=== PATIENT | female | born 1975 | race Caucasian/White ===

== ENCOUNTER → 2016-06-19 | Outpatient (CLI) | payer BC ==
[~2016-06-19] MED LIST: ACET-1256 PO; DOXYCYCLINE PEG; GLUCTAB7 PO; HYDR-5688 PO; HYDR4TAB78 PO; METF-384 PO; METRONIDAZOLE TOP; SENNTAB23 PO; TRAM-10 PO
[2016-06-19 16:55] LABS: BLOOD UREA NITROGEN 9 mg/dl (7-18); CREATININE 0.76 mg/dl (0.60-1.20)
== END | disposition home or self-care (01) ==
LOC: C.LABBC 14:22
PROVIDERS: ATTEND Orthopaedic Surgery Orthopaedic Surgery of the Spine
DX: M47.812 Spondylosis without myelopathy or radiculopathy, cervical region (principal); M54.12 Radiculopathy, cervical region

== ENCOUNTER → 2016-06-24 | Day surgery (SDC) | payer BC ==
[~2016-06-24] VITALS: Ht 167.6 cm; Wt 118.0 kg
[2016-06-24] VITALS (11 sets, daily range): BP systolic 100–134; BP diastolic 54–80; PULSE 56–69; TEMP 36.6–37; O2SAT 96–100; Ht 167.6 cm; Wt 118.0 kg
[~2016-06-24] MED LIST changes: +ACETAMINOPHEN 500 MG TAB PO PRN
--- NOTE | 2016-06-24 09:44 | DIAGNOSTIC IMAGING REPORT ---
FLUOROSCOPICALLY GUIDED CERVICAL MYELOGRAM CLINICAL HISTORY: prior neck surgery. Neck pain. FLUOROSCOPY TIME: 0.8 minutes. A single image submitted. PROCEDURE: The procedure, risks and benefits were discussed with the patient including the risk of spinal headache, bleeding and infection. The patient agreed to the procedure and informed written consent was obtained. The procedure was performed by Dr. Berkowitz following a timeout. The right L3-L4 interlaminar space was targeted. Skin overlying the space was prepped and draped in the usual sterile fashion and local anesthesia was achieved with 1% lidocaine. Under intermittent fluoroscopic guidance, a 20-gauge x 4.75 in. Sprotte needle was inserted into the thecal sac. A total of 8cc of Isovue-M 300 was injected. The patient tolerated the procedure well. There were no immediate complications. The patient was transported to the CT suite for further imaging. IMPRESSION: Successful fluoroscopic guided cervical myelogram. Electronically signed by: Sukmuar Berkowitz M.D. 06/24/2016 9:43 AM Dictated Date/Time: 06/24/2016 9:40 AM
--- NOTE | 2016-06-24 09:45 | Discharge Instructions ---
Discharge Instructions Procedure Procedure Date: Jun 24, 2016. Reason for visit: Cervical Radiculopathy/Spondylosis *Latex Allergy*. Discharge Discharge Date: Jun 24, 2016. Discharge Diagnosis: same Instructions Activity Recommendations: No limitations Return to School/Work: no limitations Recommended Home Diet: Resume Previous Diet Provider Instructions: ACTIVITY RECOMMENDATIONS: * Rest today. * Resume regular activity in one day. MEDICATIONS: * May take Tylenol or Ibuprofen as needed for pain. DIET: * Resume previous diet. SPECIAL CARE INSTRUCTIONS: Call your doctor if: * Temperature above 101 degrees F. * Pain not relieved by pain medicine ordered. * Increased drainage or redness from incision. * Notify your doctor with any questions or concerns. Call your doctor or go to the nearest Emergency Department if you experience: * Increased chest pain or shortness of breath. FOLLOW UP VISIT: Follow-up with Referring Physician as scheduled. Allergies Coded Allergies: Latex1 -Allergic Contact Dermititis (Verified Allergy, Mild, rash, 06/24/16) NO KNOWN DRUG ALLERGIES (Verified Allergy, Mild, ., 06/24/16) Killian Yuen Recommendations: Call your doctor if: * Temperature above 101 degrees * Pain not relieved by pain medicine ordered * There is increased drainage or redness from any incision * You have any unanswered questions or concerns. Your Doctors Instructions noted above were prepared by provider Sukumar Berkowitz. Patient Signature Section: Patient Instructions Signature Page Tsering Us Patient (or Guardian) Signature/Date: I have read and understand the instructions given to me by my caregivers. Caregiver/RN/Doctor Signature/Date: The above-named patient and/or guardian has received patient instructions on this date. + Original Patient Signature Page (only) stays with chart. Please make copy for patient.
--- NOTE | 2016-06-24 10:21 | DIAGNOSTIC IMAGING REPORT ---
CT CERVICAL SPINE MYELOGRAM HISTORY: Neck pain. TECHNIQUE: Multiaxial CT images of the cervical spine were performed following the intrathecal injection of contrast and reformatted in the sagittal and coronal plane.. COMPARISON STUDY: Cervical spine MRI 12/16/2015. FINDINGS: Straightening of the cervical spine. Alignment is intact. There is anterior cervical discectomy and fusion at C5-C6. There are large anterior osteophytes within the lower cervical spine. The C1-C2 interval and prevertebral soft tissues are intact. C2-C3: Small focal central disc osteophyte complex resulting in partial effacement of the anterior thecal sac without cord deformity. No neural foraminal narrowing. C3-C4: No significant central canal or neural foraminal narrowing. C4-C5: No significant central canal or neural foraminal narrowing. C5-C6: There is again noted a large right posterior lateral osteophyte. This measures approximately 15 (TV) x 6 (AP) mm. This abuts and results in moderate right anterior cord deformity. This also results in severe right-sided neural foraminal narrowing with compression of the exiting right nerve root. This is similar to the prior study. No left neural foraminal narrowing. C6-C7: No significant central canal or neural foraminal narrowing. C7-T1: No significant central canal or neural foraminal narrowing. IMPRESSION: 1. Interval anterior cervical discectomy and fusion at C5-C6. 2. No change in the large right posterior lateral osteophyte at C5-C6 which abuts and results in moderate right anterior cord deformity. This also results in severe right-sided neural foraminal narrowing. 3. No change in the focal central disc osteophyte complex at C2-C3. This results in partial effacement of the anterior thecal sac without cord deformity. Electronically signed by: Sukumar Berkowitz M.D. 06/24/2016 10:20 AM Dictated Date/Time: 06/24/2016 10:08 AM
== END | disposition home or self-care (01) ==
LOC: C.ACU 07:42
PROVIDERS: ATTEND Orthopaedic Surgery Orthopaedic Surgery of the Spine
DX: M54.12 Radiculopathy, cervical region (principal); M47.892 Other spondylosis, cervical region; Z91.040 Latex allergy status

== ENCOUNTER 2016-08-04 10:57 | Observation (INO) | payer BC ==
[2016-07-30 09:26] VITALS: BMI 41.0
--- NOTE | 2016-07-30 10:08 | PAT Medication Instructions ---
Service Date Jul 30, 2016. Current Home Medication List Acetaminophen (Tylenol), 1,000 MG PO PRN Iewhtpqpnnh-Ghxjrrchfic-Rgi C- (Glucosamine Chondroitin), 1 TAB PO BID Hydromorphone Hcl (Dilaudid), 4 MG PO Q6H PRN for RN Metformin Hcl (Glucophage), 1,000 MG PO BID Sennosides-Docusate Sodium (Stool Softener), 1-2 TAB PO QPM Tramadol (Ultram), 50-100 MG PO Q6H PRN for 6H [Doxycycline], 1 TAB PEG BID [Metronidazole], 1 DOSE TOP PRN Medication Instructions For Your Scheduled Surgery - Hold the following medications starting 07/30/16: Ixgsunzsobm-Xbejqmayunj-Qxs C- (Glucosamine Chondroitin), 1 TAB PO BID - Hold the following medications 24 hours prior to surgery: [Metronidazole], 1 DOSE TOP PRN - Hold the following medications 48 hours prior to surgery: Metformin Hcl (Glucophage), 1,000 MG PO BID - Take the following medications the morning of surgery with a sip of water: [Doxycycline], 1 TAB PEG BID Acetaminophen (Tylenol), 1,000 MG PO PRN Hydromorphone Hcl (Dilaudid), 4 MG PO Q6H PRN for RN (okay to take up to 4 hours prior to surgery if needed) Tramadol (Ultram), 50-100 MG PO Q6H PRN for 6H (okay to take up to 4 hours prior to surgery if needed) - Take the following medications as scheduled the night before surgery: [Doxycycline], 1 TAB PEG BID Sennosides-Docusate Sodium (Stool Softener), 1-2 TAB PO QPM Acetaminophen (Tylenol), 1,000 MG PO PRN Hydromorphone Hcl (Dilaudid), 4 MG PO Q6H PRN for RN (okay to take up to 4 hours prior to surgery if needed) Tramadol (Ultram), 50-100 MG PO Q6H PRN for 6H (okay to take up to 4 hours prior to surgery if needed) If you have any questions please call us at [phone] (Faith Choudhury PA-C) or [phone] or [phone]
[2016-07-30 10:48] LABS: BASO % 0.9 %; BASO ABS # 0.07 K/uL (0-0.2); COMPLETE YES; HEMATOCRIT 36.3 % (37-47); IG% 0.1 %; LYMPH % 28.4 %; LYMPH ABS # 2.33 K/uL (1.2-3.4); MEAN CELL VOLUME 89.2 fL (80-100); MEAN CORPUSCULAR HGB CONC 33.6 g/dl (32-36); MEAN PLATELET VOLUME 9.4 fL (7.4-10.4); MONO % 5.3 %; NEUT % 63.3 %; PLATELET COUNT 298 K/uL (130-400); RED BLOOD COUNT 4.07 M/uL (4.2-5.4); WHITE BLOOD COUNT 8.19 K/uL (4.8-10.8)
[2016-07-30 13:58] LABS: BUN/CREATININE RATIO 22.6 (10-20); CREATININE 0.57 mg/dl (0.60-1.20); POTASSIUM 4.6 mmol/L (3.5-5.1)
[2016-08-04] VITALS (9 sets, daily range): BP systolic 123–169; BP diastolic 67–94; PULSE 62–89; TEMP 37–37.6; O2SAT 97–100; Ht 167.6 cm; Wt 116.8 kg
[~2016-08-04] VITALS: Ht 167.6 cm; Wt 116.8 kg
--- NOTE | 2016-08-04 08:12 | HISTORY & PHYSICAL EXAMINATION ---
DATE OF ADMISSION: 08/04/2016 CHIEF COMPLAINT: Neck pain, arm pain, weakness, upper extremity difficulty, and paresthesias. HISTORY OF PRESENT ILLNESS: Tsering is a 41-year-old female with cervical spine issues. We have been following her in the office for several months. She had surgery in the past. This failed to help her with all of her symptoms. Actually, she did well initially after surgery and then the several weeks later, felt some shooting pain, numbness, and tingling to her upper extremity. She presented to our office with poor use of her upper extremity. PAST MEDICAL HISTORY: Positive for obesity and neck problems. No hypertension, kidney, or liver issues. No carcinoma. PAST SURGICAL HISTORY: Include anterior cervical neck surgery, appendectomy, knee, tonsil, and tubal ligation. ALLERGIES: LATEX. MEDICATIONS: Metformin, tramadol, and doxycycline. SOCIAL HISTORY: Nonsmoker, nonalcohol user, no other drug use. REVIEW OF SYSTEMS: She admits to headaches, but no fever, sweats, or chills. No blurred vision or double vision. Denies chest pain, palpitations, and angina. No shortness of breath, asthma, or wheezing. No nausea, vomiting, bowel and bladder issues all negative. Her major complaint is musculoskeletal, neck and upper extremity difficulties. OBJECTIVE: GENERAL: She is alert and oriented. VITAL SIGNS: Blood pressure 130/80, pulse of 80, respiratory rate 16, and temperature 97.4. HEENT: Pupils react to light and accommodation. Ears, nose, and throat clear. Incision in her cervical spine is appropriate and healed nicely. CARDIAC: She has normal cardiac examination. Normal S1 and S2. No murmurs and no ectopy. LUNGS: Clear. ABDOMEN: Soft, nontender, and obese. Good bowel sounds. NEUROLOGIC: Demonstrates significant weakness to the right upper extremity. Biceps function, and drapery and upholstery estimator strength on the right arm all decreased. IMAGING DATA: Image, which was a CT myelogram demonstrates osteophyte formation, impingement on the C6 nerve root on the right hand side consistent with her symptoms. The device in place appears to be in good alignment and in good repair. DISPOSITION: She is being scheduled today for an anterior cervical diskectomy and fusion at C5-C6 of the cervical spine under general anesthetic. It will be essentially a corpectomy type case, where we have to really take out significant amount of the vertebral body at least the upper portion of C6 and lower portion of C5. She will need an anterior plate. Because her airway and obesity, she may need ICU monitoring after surgical intervention.
[~2016-08-04 10:57] MED LIST changes: -ACETAMINOPHEN 500 MG TAB PO PRN; +ATROPINE SULFATE 0.1 MG/ML 5ML SYR IV PRN; +CEFAZOLIN 2000 MG/60 ML D5W 60 ML IV SCH; +EpHEDrine SULFATE INJ 50 MG/ML AMP IV PRN; +FENTANYL CITRATE INJ 50 MCG/1 ML 2 ML VIAL IV PRN; -HYDR-5688 PO; +HYDROmorphone INJ 1 MG/ML SYR IV PRN; +LABETALOL HCL IV 5 MG/ML 20ML IV PRN; +LACTATED RINGER'S 1000ML 1,000 ML IV SCH; +MEPERIDINE HCL 25 MG/ML CARP IV PRN; +NSS 1000ML IV SCH; +ONDANSETRON INJ 2 MG/ML 2 ML VIAL IV PRN
--- NOTE | 2016-08-04 12:25 | History & Physical Bridge Note ---
H&P Re-Evaluation Bridge Note: I have examined the patient, reviewed the History & Physical and in the interval since the performance of the History & Physical I have noted the following changes of clinical significance: No changes noted
[2016-08-04] MEDS ORDERED: ONDANSETRON INJ 2 MG/ML 2 ML VIAL ONE (12:58)
[2016-08-04] MEDS ORDERED: FENTANYL CITRATE INJ 50 MCG/1 ML 2 ML VIAL ONE ×6 (12:58→16:27)
[2016-08-04] MEDS ORDERED: DEXAMETHASONE SOD INJ 4 MG/ML VIAL ONE (12:58)
[2016-08-04] MEDS ORDERED: NEOSTIGMINE METHYLSULFATE 5 MG/5 ML SYR ONE (12:58)
[2016-08-04] MEDS ORDERED: LIDOCAINE HCL 2% 2 ML VIAL (20MG/ML) ONE (12:58)
[2016-08-04] MEDS ORDERED: GLYCOPYRROLATE INJ 0.2 MG/ML VIAL ONE (12:58)
[2016-08-04] MEDS ORDERED: MIDAZOLAM HCL 1 MG/ML 2ML VIAL ONE (12:58)
[2016-08-04] MEDS ORDERED: ROCURONIUM BROMIDE 10 MG/ML 5 ML VIAL ONE ×2 (12:58→13:44)
[2016-08-04] MEDS ORDERED: PROPOFOL IV EMULSION 10 MG/ML 20 ML VIAL IV ONE (12:58)
[2016-08-04] MEDS ORDERED: BACITRACIN 50000 UNIT VIAL ONE (13:01)
[2016-08-04] MEDS ORDERED: GELATIN SPONGE SZ 100 ONE (13:01)
[2016-08-04] MEDS ORDERED: BUPIVACAINE/EPINEPHRINE 0.5% MPF 1:200,000 30 ML VIAL ONE (13:01)
[2016-08-04] MEDS ORDERED: THROMBIN FOR SOLN 20000 UNIT KIT ONE (13:01)
--- NOTE | 2016-08-04 15:44 | DIAGNOSTIC IMAGING REPORT ---
Cervical SPINE, INTRAOPERATIVE FLUOROSCOPY HISTORY: C5-C6 revision. FLUOROSCOPY TIME: 7 seconds. FINDINGS: Intraoperative fluoroscopy was provided for the cervical spine. 2 fluoroscopic spot images were obtained. Anterior cervical discectomy and fusion at C5-C6. The hardware appears intact. IMPRESSION: Fluoroscopy provided for a C5-C6 ACDF. Electronically signed by: Sukumar Berkowitz M.D. 08/04/2016 3:42 PM Dictated Date/Time: 08/04/2016 3:42 PM
[2016-08-04] MEDS ORDERED: ONDANSETRON INJ 2 MG/ML 2 ML VIAL IV PRN (16:00)
[2016-08-04] MEDS ORDERED: MAGNESIUM HYDROXIDE SUSP 30 ML UDC PO PRN (16:00)
[2016-08-04] MEDS ORDERED: METRONIDAZOLE TOP SCH (16:00)
[2016-08-04] MEDS ORDERED: LORAZEPAM INJ 0.5 MG in SYRINGE 0.75 ML IV PRN (16:00)
[2016-08-04] MEDS ORDERED: DEXAMETHASONE INJ 8 MG in SYRINGE 0 ML IV PRN (16:00)
[2016-08-04] MEDS ORDERED: RACEPINEPHRINE 2.25% NEBU SOLN 0.5 ML VIAL INH PRN (16:00)
[2016-08-04] MEDS ORDERED: NALOXONE HCL 0.4 MG/1 ML VIAL/CARP IV PRN (16:00)
[2016-08-04] MEDS ORDERED: ACETAMINOPHEN IV 1,000 MG in EMPTY BAG 0 ML IV PRN (16:00)
--- NOTE | 2016-08-04 16:29 | OPERATIVE REPORT ---
DATE OF OPERATION: 08/04/2016 PREOPERATIVE DIAGNOSIS: Spinal cord compression C5-6 cervical spine. POSTOPERATIVE DIAGNOSIS: Same. PROCEDURES: Included an anterior cervical corpectomy, C5-6; partial removal of the vertebrae of C5 and C6. We also did an anterior iliac crest bone graft using iliac crest bone in anterior plate. SURGEON: Germain Stanton DO A CLASS LINEMAN: Richy Sepulveda PA-C COMPLICATIONS: Zero. BLOOD LOSS: 20 mL. DESCRIPTION OF PROCEDURE: The patient was taken to the operating room, a general intubated anesthetic provided to the patient, kept supine, scrubbed first and prepped, draped sterile. We made a skin incision over the C5-6 interval of the cervical spine dissecting the soft tissue. We came down well on the anterior aspect of the spine. We could find her old implant. We dissected this free of soft tissue. We used different osteotomes and curettes and freed up the implant. This was then removed. Through inspection, we were eventually back to the spinal cord and there was a large osteophyte on the spinal cord on the symptomatic right hand side. We used a very small curette, a 1 mm [place] rongeur, I piecemealed off the bone fragments off of the anterior aspect of the spinal cord. I completed the foraminotomy as well. Also, did a foraminotomy in the left hand side. We then went to the left iliac crest, made a skin incision, fascial incision, harvested an anterior structural autograft for the vacated discectomy. It measured a centimeter in height, tapered to about 9 mm. It was 13 mm across and approximately 15 mm in depth. This was packed into the vacated discectomy at C5-6 cervical spine. We then selected an anterior plate 18 mm in length by the [employer]. This was placed on the anterior aspect of the vertebral bodies. This was fixed with cortex screws, 2 up and 2 down anatomic fashion. We were pleased with a cross table x-ray. We irrigated and closed the cervical spine with 2-0 Vicryl and Monocryl over a drain. We then went to the iliac crest closed as well with #1 Vicryl, 2-0 and 3-0 nylon. Sterile dressings placed throughout. The patient then extubated to PACU in improved stable condition. There were no apparent complications. Sponge and needle count correct at the close of the procedure. I attest to the content of the Intraoperative Record and any orders documented therein. Any exceptio ns are noted below.
--- NOTE | 2016-08-04 16:44 | Anesthesiology Progress Note ---
Anesthesia Post Op Note Date & Time Aug 04, 2016 at 16:43 Vital Signs Pain Intensity: 5 Vital Signs Past 12 Hours Date Time Temp Pulse Resp B/P Pulse Ox O2 Delivery O2 Flow Rate FiO2 08/04/16 16:40 65 16 154/78 98 Nasal Cannula 4 08/04/16 16:30 36.2 67 16 156/78 99 Nasal Cannula 4 08/04/16 16:20 69 16 146/79 98 Nasal Cannula 4 08/04/16 16:10 65 16 145/76 99 Mask 10 08/04/16 16:00 75 16 157/75 100 Mask 10 08/04/16 15:50 36.3 89 16 157/73 100 Mask 10 08/04/16 11:23 37 62 20 138/67 100 Room Air Notes Mental Status: alert / awake / arousable, participated in evaluation Pt Amnestic to Procedure: Yes Nausea / Vomiting: adequately controlled Pain: adequately controlled Airway Patency, RR, SpO2: stable & adequate BP & HR: stable & adequate Hydration State: stable & adequate Anesthetic Complications: no major complications apparent Pt doing well.
[2016-08-04] MEDS ORDERED: HYDROmorphone INJ 1 MG/ML SYR ONE (17:50)
[2016-08-04] MEDS: SODIUM CHLORIDE 0.9% 1000ML 1,000 ML IV SCH (17:51)
[2016-08-04] MEDS: OXYCODONE/ACETAMINOPHEN 5-325 TAB PO PRN ×2 (19:29→23:41)
[2016-08-04] MEDS: DEXAMETHASONE INJ 6 MG in SYRINGE 0 ML IV SCH (20:21)
[2016-08-04] MEDS: DOCUSATE SODIUM 100 MG CAP PO SCH (20:53)
[2016-08-04] MEDS: HYDROmorphone INJ 0.5 MG/0.5 ML SYR IV PRN (20:54)
[2016-08-04] MEDS ORDERED: DOXYCYCLINE PEG SCH (21:00)
[2016-08-04] MEDS ORDERED: NON-FORMULARY MEDICATION (Glucosamine-Chondroitin-Vit C- (Glucosamine Chondroitin) 1 TAB) PO SCH (21:00)
[2016-08-04] MEDS: CEFAZOLIN IV 1,000 MG in DEXTROSE 5% 50ML 50 ML IV SCH (21:39)
[2016-08-05] VITALS (20 sets, daily range): BP systolic 101–152; BP diastolic 60–92; PULSE 53–96; TEMP 36.5–37.4; O2SAT 79–100
[2016-08-05] MEDS: HYDROmorphone INJ 0.5 MG/0.5 ML SYR IV PRN ×7 (00:08→23:21)
[2016-08-05] MEDS: DEXAMETHASONE INJ 6 MG in SYRINGE 0 ML IV SCH ×2 (03:26→12:06)
[2016-08-05] MEDS: OXYCODONE/ACETAMINOPHEN 5-325 TAB PO PRN ×4 (04:49→20:02)
[2016-08-05] MEDS: CEFAZOLIN IV 1,000 MG in DEXTROSE 5% 50ML 50 ML IV SCH ×2 (06:17→13:17)
[2016-08-05] MEDS: SODIUM CHLORIDE 0.9% 1000ML 1,000 ML IV SCH (06:18)
--- NOTE | 2016-08-05 07:36 | PROGRESS NOTE ---
DATE: 08/05/2016 SUBJECTIVE: Moderate complaints of pain and mild dysphagia. No shortness of breath. Significant iliac crest pain and cervical spine pain. Alert and oriented. Vital signs stable, 36.5 temperature, blood pressure is stable. Lungs clear. Bowel sounds decreased. Strength improved right arm. IMPRESSION: Status post revision cervical spine surgery with a corpectomy at C5-C6 of the cervical spine along with iliac crest bone graft. DISPOSITION: We will get her up and ambulate her here today. Maintain her dressings. Maintain her airway. It is a little premature to send her home this morning. I think she will need another day in the hospital. Hopefully, her bowels will come around and her pain will be better controlled.
[2016-08-05] MEDS: DOCUSATE SODIUM 100 MG CAP PO SCH ×2 (08:58→20:02)
[2016-08-05] MEDS: METFORMIN HCL 500 MG TAB PO SCH ×2 (08:58→17:58)
--- NOTE | 2016-08-05 10:50 | Anesthesiology Progress Note ---
Anesthesia Post Op Note Date & Time Aug 05, 2016 at 10:49 Vital Signs Pain Intensity: 7.0 Vital Signs Past 12 Hours Date Time Temp Pulse Resp B/P Pulse Ox O2 Delivery O2 Flow Rate FiO2 08/05/16 10:00 65 16 110/60 95 Room Air 08/05/16 08:02 95 Room Air 08/05/16 08:02 66 16 94 Room Air 08/05/16 07:57 95 Room Air 08/05/16 06:54 36.5 65 18 101/64 92 Room Air 08/05/16 06:10 36.6 69 16 137/73 97 Room Air 08/05/16 04:10 37.4 73 14 128/78 96 Nasal Cannula 2.0 08/05/16 03:34 72 16 98 Nasal Cannula 2.0 08/05/16 02:10 37.1 75 16 140/72 97 Nasal Cannula 2.0 Humidified Oxygen 08/05/16 00:10 37.4 73 16 128/78 96 Nasal Cannula 2.0 Humidified Oxygen 08/05/16 00:10 Nasal Cannula 2.0 Humidified Oxygen 08/04/16 23:36 70 16 97 Nasal Cannula 2.0 Notes Mental Status: alert / awake / arousable, participated in evaluation Pt Amnestic to Procedure: Yes Nausea / Vomiting: adequately controlled Pain: adequately controlled Airway Patency, RR, SpO2: stable & adequate BP & HR: stable & adequate Hydration State: stable & adequate Anesthetic Complications: no major complications apparent
[2016-08-06] VITALS (9 sets, daily range): BP systolic 121–147; BP diastolic 72–83; PULSE 53–82; TEMP 36.5–37.5; O2SAT 95–99
[2016-08-06] MEDS: OXYCODONE/ACETAMINOPHEN 5-325 TAB PO PRN ×3 (01:51→10:35)
[2016-08-06] MEDS: HYDROmorphone INJ 0.5 MG/0.5 ML SYR IV PRN (04:18)
[2016-08-06] MEDS ORDERED: BISACODYL 10 MG SUPP PR PRN (06:00)
[2016-08-06] MEDS ORDERED: BISACODYL 5 MG TABEC PO PRN (06:00)
[2016-08-06] MEDS: METFORMIN HCL 500 MG TAB PO SCH (07:54)
[2016-08-06] MEDS: DOCUSATE SODIUM 100 MG CAP PO SCH (07:54)
--- NOTE | 2016-08-06 09:54 | Discharge Instructions ---
Discharge Instructions Date of Service Aug 06, 2016. Admission Reason for Admission: Spinal Cord Compression Discharge Discharge Diagnosis / Problem: cord compression Discharge Goals Goal(s): Improve function Activity Recommendations Activity Limitations: as noted below Lifting Limitations: until after follow-up appointment Exercise/Sports Limitations: until after follow-up appointment May Resume Sexual Activity: after follow-up appointment Shower/Bathe: keep incision dry Driving or Machine Use: . Instructions / Follow-Up Instructions / Follow-Up MEDICATIONS: Please take your prescriptions as instructed at your pre-op appointment. SPECIAL CARE: The following information is intended to answer some of the common questions and concerns regarding your surgery. Each patient is an individual and receives individual counselling throughout the course of treatment, from diagnosis to surgery all the way through recovery. What follows is not an exhaustive list, but should be a useful guide to some of the common questions and concerns patients have regarding their surgeries. These are not provided to keep you from calling us; rather, they give you something accurate and concrete to reference as you recover from your procedure. If you need us, we are available to you. As always, if you are not sure about something, call us at [phone]. MEDICAL EMERGENCIES: For these conditions, call 911 or go to your local hospital-based Emergency Department - not [facility] or equivalent. * Paralysis * Severe chest pain or difficulty breathing * Swelling or redness of either leg Spine procedures can be rather complex and though complications are rare, they do occur. In such cases, effective advice regarding emergency situations cannot always be addressed over the telephone. You may be referred to the emergency department for more effective management of your problem. Activity Limitations: It is important to give your body time to heal, so please limit your activities : * In general, don't do anything that moves your spine too much. You should avoid contact sports, twisting or heavy lifting while you recover. * 5-10 pounds is all you should attempt to lift. * You should not plan on driving for approximately 3 weeks and you should avoid traveling more than 30-45 minutes at a time. Longer trips should be broken down with walking breaks spaced appropriately. * Physical therapy is not usually required. * Walking and good posture practices will help you recover and regain your function. * Avoid straining or sudden changes in position. * In general, the goal is to take it easy and recover. Don't cause any new problems. Just relax. Showers: * Do not take a bath, use a Jacuzzi or hot tub or otherwise submerge your incision. * It is usually safe to take a shower 4-5 days after your surgery. * Your incision does not require any special creams or ointments. * Simply clean it with soap and water, dry and re-dress with a clean bandage afterwards. Incision: * Keep incision clean, dry and protected until your first follow-up appointment. * Some amount of drainage and redness is normal. Any drainage should be fairly clear and not have a foul odor. * If you feel anything is wrong or you have excessive drainage, please call us. * Your stitches and mirna will be removed 10-14 days after your surgery. At the time of your first post-op visit. * Neck surgeries are typically closed with a suture underneath the skin. The steri-strips over the incision should be maintained until we see you in the office. Bracing: * You may be provided with a back or neck brace to encourage good posture and prevent injury. It will remind you not to do too much as you heal and will alert others to the fact that you have had a surgery. * Back braces may be removed for showers and when you are resting at home. They must be worn when you are walking around for any period of time or for travel. * For neck surgery, you will likely be provided with two cervical collars. The soft collar ([place] or foam rubber) is worn most commonly throughout the day and while sleeping. The plastic collar (provided at the hospital) is for showering/bathing. * Except while eating, collars should remain in place. More specifically, bracing is provided for a purpose and should be worn. * Please obtain your brace or collars prior to your operation and bring them to the hospital with you on the day of surgery. * You should also bring your collars to your post-op appointment with Dr. Stanton. You should always take good care of your body and practice healthy habits, especially following surgery. You should: * Follow your doctor's treatment plan * Sit and stand properly with good posture (ears over shoulders, shoulders over hips) Don't slouch * Learn to lift correctly * Exercise regularly (low-impact aerobic exercise is especially good, but check with your doctor first) * Generally, be up and walking for 5-10 minutes at a time at least 3-4 times per day from the day you get home * Increasing walking to tolerance until you can walk for 20-30 minutes at a time * Attain and maintain a healthy body weight * Eat healthy foods ( a well-balanced, low-fat diet rich in fruits and vegetables) and get enough calcium * Avoid excessive use of alcohol When to call our office - If you notice any of the following: * Increased pain not relieve by pain medicine * Fevers greater then 100 degrees F, chills or flu symptoms * Increased redness around incision * Drainage from the incision that is not clear * Any foul smelling drainage * Swelling or fluid collection beneath the skin Miscellaneous: * In the hospital, you may be given a walker or cane for support while walking. These are temporary needs and are intended to prevent injuries due to falls. You may discontinue them when you feel strong and steady enough on your feet. * Sleep in a comfortable position. We find that many patients find a lounge chair or recliner with several pillows to be beneficial in the early post-operative period. * The support stockings should be used for 7-10 days and may be discontinued when you are back to walking more and conducting usual household activities. No problem is insignificant. We are here to help you and get you well. Contact us at [phone]. Definitions: Foraminotomy: If part of the disc or a bone spur (osteophyte) is pressing on a nerve as it leaves the vertebra (through an exit called the foramen), a foraminotomy may be done. Otomy means "to make an opening." A foraminotomy is making the opening of the foramen larger, so the nerve can exit without being compressed. Laminotomy: Similar to the foraminotomy, a laminotomy makes a larger opening, this time in your bony plate protecting your spinal canal and spinal cord (the lamina). The lamina may be pressing on your nerve, so the surgeon may make more room for the nerves using a laminotomy. Laminectomy: Sometimes, a laminotomy is not sufficient. The surgeon may need to remove all or part of the lamina. This procedure is called a laminectomy. This can often be done at many levels without any harmful effects. Current Hospital Diet Patient's current hospital diet: Full Liquid Diet Discharge Diet Recommended Diet: Regular Diet Procedures Procedures Performed: C5-C6 Revision Corpectomy Pending Studies Studies pending at discharge: no Medical Emergencies . Who to Call and When: Medical Emergencies: If at any time you feel your situation is an emergency, please call 911 immediately. . Non-Emergent Contact Non-Emergency issues call your: Surgeon . "Provider Documentation" section prepared by Germain Stanton. . VTE Core Measure Inpt VTE Proph given/why not?: Treatment not indicated
--- NOTE | 2016-08-26 03:26 | DISCHARGE SUMMARY ---
ADMITTING DIAGNOSIS: Spinal cord compression of cervical spine, C5-C6. DISCHARGE DIAGNOSIS: Same. The patient was admitted, had pretty extensive surgery on the , recovered , discharged home early on the in improved and stable. Wound clean and dry. Vital signs stable. No complications. Instructions precautions provided and a followup appointment provided.
== END 2016-08-06 13:45 | disposition home or self-care (01) ==
LOC: ENRESERVTM → ENRESERVDT → C.ACU 10:57 → C.3E 11:34
PROVIDERS: ADMIT Orthopaedic Surgery Orthopaedic Surgery of the Spine; ATTEND Orthopaedic Surgery Orthopaedic Surgery of the Spine
DX: G95.20 Unspecified cord compression (principal); R13.10 Dysphagia, unspecified; E66.9 Obesity, unspecified

== ENCOUNTER → 2017-01-28 | Outpatient (CLI) | payer BC ==
[~2017-01-28] MED LIST changes: -ATROPINE SULFATE 0.1 MG/ML 5ML SYR IV PRN; -CEFAZOLIN 2000 MG/60 ML D5W 60 ML IV SCH; -EpHEDrine SULFATE INJ 50 MG/ML AMP IV PRN; -FENTANYL CITRATE INJ 50 MCG/1 ML 2 ML VIAL IV PRN; -HYDROmorphone INJ 1 MG/ML SYR IV PRN; -LABETALOL HCL IV 5 MG/ML 20ML IV PRN; -LACTATED RINGER'S 1000ML 1,000 ML IV SCH; -MEPERIDINE HCL 25 MG/ML CARP IV PRN; -NSS 1000ML IV SCH; -ONDANSETRON INJ 2 MG/ML 2 ML VIAL IV PRN
[2017-01-28 15:56] LABS: PREG INTERNAL NEGATIVE QC NEG CLEAR BACKGROUND; PREG INTERNAL POSITIVE QC POS CONTROL LINE
== END | disposition home or self-care (01) ==
LOC: C.LAB1850 14:26
PROVIDERS: ATTEND Physician Assistant
DX: N91.2 Amenorrhea, unspecified (principal)

== ENCOUNTER → 2017-01-28 | Outpatient (CLI) | payer BC | END | disposition home or self-care (01) | LOC: C.PAPS 09:20 | PROVIDERS: ATTEND Physician Assistant | DX: Z01.419 Encounter for gynecological examination (general) (routine) without abnormal findings (principal) ==

== ENCOUNTER 2017-05-23 11:13 | Emergency (ER) | payer BC, OTHER ==
[~2017-05-23] VITALS: Ht 167.6 cm; Wt 115.0 kg
[~2017-05-23 11:13] MED LIST changes: -DOXYCYCLINE PEG; +DOXYCYCLINE PO
[2017-05-23 11:15] VITALS: TEMP 37.2; Ht 167.6 cm; Wt 115.0 kg
[2017-05-23] MEDS ORDERED: MoRPHine SULFATE 10 MG/ML CARP/VIAL IM STA (11:39)
[2017-05-23] MEDS ORDERED: KETOROLAC TROMETHAMINE 60 MG/2 ML VIAL IM STA (11:39)
[2017-05-23] MEDS ORDERED: ONDANSETRON 4MG OD TAB PO ONE (11:45)
[2017-05-23] MEDS ORDERED: GLC/500 PO (12:03)
--- NOTE | 2017-05-23 12:52 | DIAGNOSTIC IMAGING REPORT ---
L-SPINE MIN 4 VIEWS ROUTINE CLINICAL HISTORY: 41 years-old Female presenting with R posterior rib/back pain after fall this a.m.. TECHNIQUE: Frontal, bilateral oblique, lateral, and coned in lateral views the lumbar spine were obtained. COMPARISON: 10/12/2014. FINDINGS: Minimal levocurvature of the lumbar spine at L4-5. Otherwise normal lumbar lordosis. Vertebral bodies maintain normal height and alignment. Intervertebral disc spaces preserved. Minimal osteophytosis noted at nearly every level anteriorly. No radiographic evidence of osseous neural foraminal narrowing. No compression deformity or subluxation to suggest acute osseous injury. No pars defect. Bone island may be present in the right iliac wing. IMPRESSION: Mild multilevel degenerative changes. No radiographic evidence of acute osseous injury. Electronically signed by: Renny Mckinley M.D. 05/23/2017 12:51 PM Dictated Date/Time: 05/23/2017 12:49 PM
--- NOTE | 2017-05-23 12:54 | DIAGNOSTIC IMAGING REPORT ---
THORACIC SPINE 3 VIEWS ROUTINE CLINICAL HISTORY: 41 years-old Female presenting with R posterior rib/back pain. TECHNIQUE: 5 views of the thoracic spine were obtained. COMPARISON: None. FINDINGS: Partially visualized anterior cervical fusion hardware at C5-6. Normal thoracic kyphosis. Vertebral bodies maintain normal height and alignment. Intervertebral disc spaces preserved. Limited visualization of the upper thoracic spine. No radiographic evidence of compression deformity or subluxation. Multilevel degenerative changes noted diffusely in the thoracic spine with anterior osteophytosis. Visualized portion of the thorax normal. IMPRESSION: Multilevel degenerative change. No radiographic evidence of acute osseous injury. Electronically signed by: Renny Mckinley M.D. 05/23/2017 12:52 PM Dictated Date/Time: 05/23/2017 12:51 PM
--- NOTE | 2017-05-23 13:07 | DIAGNOSTIC IMAGING REPORT ---
R RIBS UNILATERAL WITH PA CHEST CLINICAL HISTORY: 41 years-old Female presenting with R posterior rib/back pain, fall this morning. TECHNIQUE: Frontal and oblique views of the right ribs as well as PA view of the chest were obtained. COMPARISON: None. FINDINGS: Atherosclerosis of aortic arch. Cardiac silhouette normal in size. Lungs and pleural spaces clear. Upper abdomen normal. Degenerative changes of the spine. No displaced right rib fracture. Anterior cervical fusion hardware noted. IMPRESSION: 1. No acute cardiopulmonary disease. 2. No displaced right rib fracture. Electronically signed by: Renny Mckinley M.D. 05/23/2017 1:06 PM Dictated Date/Time: 05/23/2017 1:05 PM
[2017-05-23] MEDS ORDERED: OXYC1TAB3 PO (13:33)
[2017-05-23 13:59] VITALS: BP 124/87; PULSE 83; O2SAT 100
--- NOTE | 2017-05-23 15:08 | EMERGENCY ROOM VISIT NOTE ---
History First contact with patient: 11:34 Chief Complaint: BACK PAIN Stated Complaint: FALL,HURT BACK History of Present Illness The patient is a 41 year old female who presents to the Emergency Room with complaints of back pain after she slipped on snow and fell in her driveway this morning. The patient denies any head injury, loss of consciousness or neck pain. She complains of right sided and middle back pain and lower back pain. She denies any tingling, paresthesias or numbness of the upper or lower extremities. She denies abdominal pain, shortness of breath or chest pain. The patient has had neck surgery within the past year by Dr. Stanton. The patient rates her discomfort an 8 out of 10. Review of Systems 10 system review was performed and was negative except for pertinent positives and negatives as indicated in history of present illness Past Medical/Surgical History Medical Problems: (1) Aneurysm of left internal carotid artery (2) Cervical cord compression with myelopathy (3) Cervical disc disease (4) Kidney stone Family History Hypertension Kidney disease Social History Smoking Status: Never Smoker Alcohol Use: none Drug Use: none Marital Status: Housing Status: lives with family Occupation Status: employed Current/Historical Medications Scheduled Acetaminophen (Tylenol), 1,000 MG PO PRN Vjqrvxzdqja-Epgakpqsgjy-Mvt C- (Glucosamine Chondroitin), 1 TAB PO BID Metformin Hcl (Glucophage), 500 MG PO QAM [Doxycycline], 1 TAB PO BID Scheduled PRN Oxycodone Ir (Roxicodone Ir), 1-2 TAB PO Q4H PRN for Pain Physical Exam Vital Signs Date Time Temp Pulse Resp B/P (MAP) Pulse Ox O2 Delivery O2 Flow Rate FiO2 05/23/17 13:59 83 20 124/87 100 05/23/17 13:59 83 20 124/87 100 Room Air 05/23/17 11:15 37.2 75 18 99 Room Air Physical Exam CONSTITUTIONAL: Morbidly obese female, alert and oriented X 3 with positive affect. The patient is currently laying in a prone position, and appears in moderately severe discomfort. HEENT: Normocephalic, atraumatic. Pupils equal, round and reactive. No subconjunctival hemorrhage, hemotympanum, raccoon's eyes or Mayers sign. NECK: Full active range of motion without discomfort. RESPIRATORY: Clear to auscultation bilaterally with no wheezing, crackles, rhonchi or stridor. Patient has no significant worsening pain with deep breathing. CARDIOVASCULAR: Regular rate and rhythm with no murmurs, rubs or gallops. GASTROINTESTINAL: Bowel sounds present in all quadrants. Soft and nontender to palpation. MUSCULOSKELETAL: Examination shows generalized tenderness to palpation through the right middle and posterior rib region. She has mild tenderness to the central lower thoracic and lumbar spine. Pelvis stable with rock. Negative logroll. INTEGUMENTARY: No rash or other significant dermatologic conditions noted. NEUROLOGIC: Upper and lower extremities are sensory intact. No focal neurologic deficits noted. Medical Decision & Procedures ER Provider Diagnostic Interpretation: My interpretation of right rib x-rays does not show any obvious fractures or pneumothorax. My interpretation of thoracolumbar x-ray shows degenerative changes without evidence for fracture. Radiologist reports were also reviewed with concurrence. Medications Administered Medications (Trade) Dose Ordered Sig/Ashish Route Start Time Stop Time Status Last Admin Dose Admin Morphine Sulfate (MoRPHine SULFATE INJ) 10 mg NOW STAT IM 05/23/17 11:39 05/23/17 11:41 DC 05/23/17 11:54 10 MG Ketorolac Tromethamine (Toradol Inj) 60 mg NOW STAT IM 05/23/17 11:39 05/23/17 11:41 DC 05/23/17 11:55 60 MG Ondansetron HCl (Zofran Odt) 4 mg ONE ONCE PO 05/23/17 11:45 05/23/17 11:46 DC 05/23/17 11:54 4 MG ED Course Patient history and physical exam were performed. Nurse's notes were reviewed. Vital signs were reviewed and were normal. The patient was administered IM morphine and Toradol, along with oral Zofran. X-rays of the right ribs with a PA chest view, thoracic and lumbar spine were normal. Upon reevaluation, the patient was up and walking around, reporting mild to moderate discomfort, rating her discomfort a 5 out of 10. She did feel well enough for discharge. The patient will be provided a prescription for OxyIR. She was instructed to alternate ibuprofen and Tylenol for baseline pain relief. She was encouraged to intermittently apply ice to areas of discomfort. She was instructed to follow-up with her PCP within the next 2-3 days for recheck. She is welcome to return to the emergency department for any worsening pain, shortness of breath, hematuria or other concerning symptoms. The patient was happy with plan of care , and voiced understanding of all discharge instructions. Medical Decision [place] Drug Monitoring Program Search Results: patient reviewed within database, no issues identified Medication Reconcilliation Current Medication List: was personally reviewed by me Blood Pressure Screening Patient's blood pressure: Normal blood pressure Impression Primary Impression: Contusion of ribs Additional Impressions: Back contusion Fall due to slipping on ice or snow Departure Information Dispostion Home / Self-Care Condition GOOD Prescriptions Oxycodone Ir (Roxicodone Ir) 5 Mg Tab 1-2 TAB PO Q4H Y for Pain, #15 TAB For Initial Treatment Prov: Yosvany Alberts PA 05/23/17 Forms HOME CARE DOCUMENTATION FORM, IMPORTANT VISIT INFORMATION Patient Instructions My [facility] Additional Instructions Intermittently apply ice to areas of discomfort. Ibuprofen 800 mg and/or Tylenol 1000 mg every 8 hours. You may also alternate these medications for more effective pain relief: Ibuprofen --4 HRS--> Tylenol --4 HRS--> ibuprofen --4 HRS--> Tylenol .... OxyIR if needed for worse pain. Do not drink alcohol or drive while taking OxyIR. Follow-up with your family doctor in 2-3 days for reevaluation. Problem Qualifiers Primary Impression: Contusion of ribs Encounter type: initial encounter Laterality: right Qualified Codes: S20.211A - Contusion of right front wall of thorax, initial encounter Additional Impressions: Back contusion Encounter type: initial encounter Laterality: unspecified laterality Qualified Codes: S20.229A - Contusion of unspecified back wall of thorax, initial encounter Fall due to slipping on ice or snow Encounter type: initial encounter Qualified Codes: W00.9XXA - Unspecified fall due to ice and snow, initial encounter
== END 2017-05-23 14:01 | disposition home or self-care (01) ==
LOC: C.EDB 11:14 → C.EDD 14:01
DX: S20.211A Contusion of right front wall of thorax, initial encounter (principal); S20.229A Contusion of unspecified back wall of thorax, initial encounter; W00.0XXA Fall on same level due to ice and snow, initial encounter; Y92.093 Driveway of other non-institutional residence as the place of occurrence of the external cause; I67.1 Cerebral aneurysm, nonruptured; Z79.84 Long term (current) use of oral hypoglycemic drugs; Z98.890 Other specified postprocedural states; Z82.49 Family history of ischemic heart disease and other diseases of the circulatory system; Z84.1 Family history of disorders of kidney and ureter

== ENCOUNTER 2017-08-10 08:32 | Day surgery (SDC) | payer OTHER ==
[~2017-08-10] VITALS: Ht 167.6 cm; Wt 115.7 kg
[2017-08-10] VITALS (9 sets, daily range): BP systolic 102–147; BP diastolic 56–85; PULSE 60–80; TEMP 36.9–37.3; O2SAT 99–100; Ht 167.6 cm; Wt 115.7 kg
[~2017-08-10 08:32] MED LIST changes: +GLC/500 PO; -HYDR4TAB78 PO; -METF-384 PO; -METRONIDAZOLE TOP; +OXYC1TAB3 PO; -SENNTAB23 PO; -TRAM-10 PO
--- NOTE | 2017-08-10 10:33 | Discharge Instructions ---
Discharge Instructions Procedure Procedure Date: Aug 10, 2017. Reason for visit: Cervical Spondylosis, Core Compression. Discharge Discharge Date: Aug 10, 2017. Discharge Diagnosis: Cervical spondylosis Instructions Activity Recommendations: 1 Day-May resume regular activity, 48 Hours of decreased exertion, 1 Day with no exercise/sex/sports, 1 Day with no driving/ machine use Return to School/Work: limitations (light activity x 48 hours) Recommended Home Diet: Resume Previous Diet Provider Instructions: Fluoroscopic guided lumbar puncture is performed at L4-L5 with injection of iodinated contrast for subsequent CT myelogram of the cervical spine. The procedure was well tolerated and without immediate complications. ACTIVITY RECOMMENDATIONS: * Rest today. * Resume regular activity in one day. MEDICATIONS: * May take Tylenol or Ibuprofen as needed for pain. DIET: * Resume previous diet. SPECIAL CARE INSTRUCTIONS: Call your doctor if: * Temperature above 101 degrees F. * Pain not relieved by pain medicine ordered. * Increased drainage or redness from incision. * Notify your doctor with any questions or concerns. Call your doctor or go to the nearest Emergency Department if you experience: * Increased chest pain or shortness of breath. FOLLOW UP VISIT: Follow-up with Referring Physician as scheduled. Allergies Coded Allergies: Latex1 -Allergic Contact Dermititis (Verified Allergy, Mild, rash, 08/10/17 ) Killian Yuen Recommendations: Call your doctor if: * Temperature above 101 degrees * Pain not relieved by pain medicine ordered * There is increased drainage or redness from any incision * You have any unanswered questions or concerns. Your Doctors Instructions noted above were prepared by provider Juan Padron. Patient Signature Section: Patient Instructions Signature Page Tsering Us Patient (or Guardian) Signature/Date: I have read and understand the instructions given to me by my caregivers. Caregiver/RN/Doctor Signature/Date: The above-named patient and/or guardian has received patient instructions on this date. + Original Patient Signature Page (only) stays with chart. Please make copy for patient.
--- NOTE | 2017-08-10 10:44 | DIAGNOSTIC IMAGING REPORT ---
FLUOROSCOPIC GUIDED LUMBAR PUNCTURE CLINICAL HISTORY: Cervicalgia. Lumbar puncture for cervical myelogram. PROCEDURE: The risks, benefits, and alternatives to the procedure is discussed with the patient who voiced understanding. Written informed consent was obtained. The patient was placed prone on the fluoroscopy table. The lower back was prepped and draped in the usual sterile fashion. 1% lidocaine was used for local anesthesia. A 20-gauge spinal needle was inserted into the L4-L5 interlaminar space, and intrathecal positioning was confirmed by return of cerebrospinal fluid into the needle hub. Approximately 15 cc of Isovue-300 was then injected into the thecal sac under fluoroscopic guidance. The patient was placed in Trendelenburg position until the contrast column reached the cervical region. The patient was then transferred to CT for CT myelogram and then observed in the medical treatment unit prior to discharge. Fluoroscopy time: 0.9 minutes. IMPRESSION: Fluoroscopic guided lumbar puncture with injection of iodinated contrast for CT myelogram of the cervical spine. Electronically signed by: Juan Padron M.D. 08/10/2017 10:43 AM Dictated Date/Time: 08/10/2017 10:40 AM
[2017-08-10] MEDS ORDERED: ACETAMINOPHEN 500 MG TAB PO PRN (10:45)
--- NOTE | 2017-08-10 12:01 | DIAGNOSTIC IMAGING REPORT ---
CT MYELOGRAM OF THE CERVICAL SPINE CLINICAL HISTORY: Cervicalgia. COMPARISON STUDY: CT myelogram of the cervical spine dated 06/24/2016. MRI of the cervical spine dated 12/16/2015. TECHNIQUE: Following the intrathecal administration of iodinated contrast, CT myelogram of the cervical spine is performed from the skull base to the upper thoracic spine. Images are reviewed in the axial, sagittal, and coronal planes. A dose lowering technique was utilized adhering to the principles of ALARA. CT DOSE: 280.31 mGy.cm FINDINGS: Cervical spine: The skeletal structures are well mineralized. There is no evidence of fracture or subluxation involving the cervical spine. Vertebral body height and alignment are maintained. There is straightening of the cervical lordosis. The spinous processes are intact. The odontoid process and lateral masses are intact. Productive degenerative change is seen at the atlantodental articulation. There are postoperative changes from anterior fusion seen at C5-C6 with complete bony incorporation at this level. The orthopedic hardware appears intact. Anterior osteophytes are seen at C2-C3 as well as from C6-T1. No lytic or blastic bony lesion is identified. Intervertebral discs: There has been discectomy at C5-C6 with bone graft placement. As noted above there is complete bony incorporation. Moderate disc space narrowing is seen at C7-T1. Only mild disc space narrowing is seen at the remaining cervical levels. Spinal cord: The spinal cord is outlined by contrast in the thecal sac. The cervical spinal cord is normal in morphology. C2-C3: A small posterior disc osteophyte complex effaces the ventral subarachnoid space. There is no significant acquired compromise of the central canal. The neural foramina are patent. C3-C4: A small posterior disc osteophyte complex minimally effaces the ventral subarachnoid space. There is no significant acquired compromise of the central canal. The neural foramina are patent. C4-C5: A posterior disc osteophyte complex eccentric to the right effaces the ventral subarachnoid space. Uncovertebral and facet arthropathy cause minimal right-sided neural foraminal stenosis. The left neural foramen is patent. C5-C6: A large osteophyte eccentric to the right abuts the ventral cord. In conjunction with uncovertebral arthropathy this causes moderate to severe right neural foraminal stenosis at this level. This is best seen on axial image 383. The left neural foramen is widely patent. A posterior osteophyte at the level of the C6 vertebral body abuts the ventral cord centrally as seen on image 412. C6-C7: A posterior disc osteophyte complex abuts the ventral cord. The neural foramina are patent. C7-T1: A small posterior disc osteophyte complex effaces the ventral subarachnoid space. The neural foramina are patent. T1-T2: Unremarkable. Soft tissues: The prevertebral and paraspinous soft tissues are normal in appearance. The thyroid gland is normal as visualized. No cervical adenopathy is seen. Lung apices: The partially imaged apical lung parenchyma is normal in appearance. Brain parenchyma: The visualized brain parenchyma at the skull base is within normal limits. IMPRESSION: 1. There are postoperative changes from C5 -C6 spinal fusion with complete bony incorporation at this level. 2. A large osteophyte eccentric to the right at C5-C6 abuts the ventral cord and contributes to moderate to severe right-sided neural foraminal stenosis at this level. 3. A posterior osteophyte at the level of the C6 vertebral body abuts the ventral cord. 4. Mild degenerative change at additional levels as detailed above. See discussion for level by level analysis. Dictated: 08/10/2017 10:52 AM Transcribed: 08/10/2017 12:00 PM SUE_Juany Electronically signed by: Juan Padron M.D. 08/10/2017 1:00 PM Dictated Date/Time: 08/10/2017 10:52 AM
== END 2017-08-10 14:30 | disposition home or self-care (01) ==
LOC: C.ACU 08:32
PROVIDERS: ATTEND Orthopaedic Surgery Orthopaedic Surgery of the Spine
DX: M47.12 Other spondylosis with myelopathy, cervical region (principal)

== ENCOUNTER 2020-04-24 10:10 | Inpatient (IN) ==
[2020-04-24] MEDS ORDERED: MoRPHine SULFATE 10 MG/ML CARP/VIAL IV STA ×2 (10:31→14:23)
[2020-04-24] MEDS ORDERED: ONDANSETRON INJ 2 MG/ML 2 ML VIAL IV STA (10:31)
[2020-04-24] MEDS ORDERED: SODIUM CHLORIDE 0.9% 1000ML 1,000 ML IV ONE (10:31)
--- NOTE | 2020-04-24 10:37 | Emergency Department Note ---
Impression & Plan Back pain, Transaminitis, Abdominal pain ED Provider Note NAME: TONG BOOTHE AGE: 44 SEX: F : 1975 ARRIVES VIA: Walk-In INFORMANT: Patient ED PROVIDER(S): Tutu Lerma DO CHIEF COMPLAINT: Fall, right side pain and back pain HPI: Patient is a 44-year-old female who presents ER following mechanical fall. She fell on the and then again on the . Since then she has been having lower thoracic pain which has now abated now she has right flank pain and right lower rib pain. Pain is worse with twisting turning bending. Sharp and stabbing in nature. Seen by PCP. Had x-rays which were unremarkable. Denies any chest pain or shortness of breath. No cough or runny nose. No belly pain. No nausea, vomiting or diarrhea. She did have some urinary frequency yesterday and started taking Pyridium with minimal improvement. Has been taking narcotics as well. Currently ran out several days ago. Pain is about 70 out of 10. Improves with rest and worsens with movement. ROS: See above HPI for pertinent positives & negatives. A total of 10 systems reviewed and were otherwise negative. PAST MEDICAL HISTORY:See Below PAST SURGICAL HISTORY:See Below FAMILY HISTORY:See Below SOCIAL HISTORY:See Below HOME MEDICATIONS:See Below ALLERGIES:See Below VITALS:See Below PHYSICAL EXAMINATION: GENERAL: Sitting up in bed, alert, moderate distress, holding right flank EYE EXAM: normal conjunctiva. OROPHARYNX: Mask in place NECK: supple, no nuchal rigidity, no adenopathy, non-tender CHEST: Tenderness throughout the right lower ribs right back and paraspinal musculature LUNGS: Clear to auscultation. Normal chest wall mechanics HEART: no murmurs, S1 normal and S2 normal ABDOMEN: abdomen soft, non-tender, normo-active bowel sounds, no masses, no re bound or guarding. BACK: Back is symmetrical on inspection and there is no deformity, no midline te nderness, tenderness throughout the right lower thoracic tracking down to the lumbar paraspinal region UPPER EXTREMITIES: upper extremities are grossly normal. LOWER EXTREMITIES: Flexion-extension of bilateral hips knees ankles and EHL 5 out of 5. DPs 2 out of 4. NEURO EXAM: Normal sensorium, cranial nerves II-XII grossly intact, normal speech, no gross weakness of arms, no gross weakness of legs. MEDICAL DECISION MAKING: Patient is a 44-year-old female morbidly obese who presents the ER for right back flank and abdominal pain. IV was established blood work was obtained. She is found to be hypothermic at 35 C. Labs showed a leukocytosis of 14,000. BMP was unremarkable. LFTs with a AST of 300 ALT of 140. This is up from previous. No elevation in bilirubin. TSH was slightly elevated. UA was difficult to interpret secondary to Azo. Bacteria was present. Patient was covered with IV antibiotics. She does have tenderness in the right upper quadrant. Question a sending cholangitis with hypothermia, transaminitis and right upper quadrant pain although I favor this is less likely and the UTI is most likely at this point with musculoskeletal back pain. Patient was given IV fluids IV narcotics and IV antibiotics. She was updated bedside discussed with hospitalist for further evaluation. Triage Nursing notes reviewed. Prior medical records reviewed Vital Signs: reviewed and remarkable for HTN Differential diagnosis: Differential diagnosis includes etiologies such as sepsis, UTI, pneumonia, metabolic, electrolyte abnormalities, cardiac sources, intracerebral event, toxicologic, neurological, as well as others were entertained. ER treatment provided: See below Diagnostics interpreted by me: ECG: none Cardiac Monitoring: An order was placed for continuous cardiac monitoring. The m onitor shows a rate of 70 with sinus rhythm. Laboratory studies: As stated above and show below. Imaging studies: CT chest as well as abdomen pelvis showed no significant acute pathology Consultation(s): Discussed with hospitalist for further evaluation ED COURSE: Procedures: none Critical Care: None Past Med/Surg History Medical History (Updated 04/24/20 @ 16:27 by Tutu Lerma DO) Aneurysm of left internal carotid artery Back contusion Cervical cord compression with myelopathy Cervical disc disease Concussion Contusion of ribs Fall due to slipping on ice or snow Kidney stone Urinary tract infection Surgical History History of appendectomy History of arthroplasty of knee primary repair of knee ligament cruciate anterior History of knee surgery History of laparoscopy With fulguration of oviducts History of tonsillectomy Family History Father Diabetes Grandfather Myocardial infarction Denies family history of Ovarian cancer Prostate cancer Breast cancer Lung cancer Colorectal cancer Hypertension Social History Smoking Status: Never smoker Second Hand Exposure: Yes; Hx Alcohol Use: Yes Hx Substance Use: No Preferred Language: [place] marital status: Current Living Situation: Spouse current occupational status: 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 Feels Safe at Home: Yes caffeine: Yes (coffee) Dental Care, Regularly: No Physical Activity Frequency: 1-2 Times per Week Seatbelt Use: always Sunscreen Use: Yes (depends ) Allergies Allergies Allergy/AdvReac Type Severity Reaction Status Date / Time latex Allergy Mild rash Verified 04/24/20 11:14 Home Meds Home Medications Medication Instructions Recorded Confirmed [id number] C-Mn 1 cap PO QAM 04/30/18 04/24/20 cholecalciferol (vitamin D3) 10 mcg PO QAM 08/05/19 04/24/20 [Vitamin D3] potassium gluconate 595 mg PO DAILY 08/05/19 04/24/20 turmeric 400 mg PO QAM 08/05/19 04/24/20 cannabidiol 0 mg PO DIRECTED PRN 04/24/20 04/24/20 ibuprofen 400 mg PO Q6H PRN 04/24/20 04/24/20 rizatriptan 5 mg PO DIRECTED PRN 04/24/20 04/24/20 verapamil 40 mg PO QAM 04/24/20 04/24/20 Previous Rx's Medication Instructions Recorded methocarbamol 500 mg tablet 500 mg PO TID #30 tab 04/11/20 hydrocodone 5 mg-acetaminophen 325 1 tab PO Q6H PRN #20 tab 04/15/20 mg tablet prednisone 20 mg tablet See Rx Instructions PO .COMPLEX 04/15/20 #30 tab glimepiride 2 mg tablet 2 mg PO DAILY #30 tab 04/23/20 metformin 1,000 mg tablet 1,000 mg PO BID #180 tab 04/23/20 Results & Data (ED) Vital Signs Vital Signs - 24 hr 04/24/20 10:12 04/24/20 12:00 04/24/20 13:30 Temperature 35.0 C L Temperature Source Temporal Artery Scan Pulse Rate 75 Pulse Rate [Left Finger] 57 L 72 Respiratory Rate 20 20 18 Blood Pressure 149/93 H Blood Pressure [Left Arm] 184/96 H 172/76 H Blood Pressure Mean 111 Blood Pressure Mean [Left Arm] 125 108 Blood Pressure Position [Left Arm] Lying Pulse Oximetry 96 99 98 Oxygen Delivery Method Room Air Sepsis Recent Fever Within 48 Hours No Sepsis New/Unexplained Change in Mental Status No Sepsis Action Taken by Nursing No Action Required 04/24/20 14:20 04/24/20 15:28 04/24/20 15:56 Temperature Temperature Source Pulse Rate Pulse Rate [Left Finger] 60 58 L 68 Respiratory Rate 20 20 18 Blood Pressure Blood Pressure [Left Arm] 217/108 H 163/105 H 162/86 H Blood Pressure Mean Blood Pressure Mean [Left Arm] 144 124 111 Blood Pressure Position [Left Arm] Sitting Pulse Oximetry 100 96 98 Oxygen Delivery Method Room Air Room Air Sepsis Recent Fever Within 48 Hours Sepsis New/Unexplained Change in Mental Status Sepsis Action Taken by Nursing Laboratory Data Result diagrams: 04/24/20 11:00 04/24/20 12:33 Lab Results 04/24/20 04/24/20 04/24/20 Range/Units 11:00 11:00 11:00 WBC 14.44 H (4.8-10.8) K/uL RBC 4.41 (4.2-5.4) M/uL Hgb 13.4 (12.0-16.0) g/dL Hct 40.1 (37-47) % MCV 90.9 (80-100) fL MCH 30.4 (25-34) pg MCHC 33.4 (32-36) g/dL RDW Std Deviation 45.4 (36.4-46.3) fL RDW Coeff of Anand 13.7 (11.5-14.5) % Plt Count 265 (130-400) K/uL MPV 10.1 (7.4-10.4) fL Immature Gran % (Auto) 0.9 % Neut % (Auto) 64.6 % Lymph % (Auto) 25.9 % [place] % (Auto) 6.7 % Eos % (Auto) 1.5 % Baso % (Auto) 0.4 % Neut # (Auto) 9.32 H (1.4-6.5) K/uL Lymph # (Auto) 3.74 H (1.2-3.4) K/uL [place] # (Auto) 0.97 H (0.11-0.59) K/uL Eos # (Auto) 0.22 (0-0.5) K/uL Baso # (Auto) 0.06 (0-0.2) K/uL Immature Gran # (Auto) 0.13 H (0.00-0.02) K/uL Sodium 136 (136-145) mmol/L Potassium (3.5-5.1) mmol/L Chloride 102 (98-107) mmol/L Carbon Dioxide 27 (21-32) mmol/L Anion Gap 7.0 (3-11) BUN 20 H (7-18) mg/dl Creatinine 0.79 (0.6-1.2) mg/dl Est Cr Clr Drug Dosing 122.5 ml/min Est GFR ( Amer) 104.8 Est GFR (Non-Af Amer) 90.4 BUN/Creatinine Ratio 25.6 H (10-20) Glucose 192 H (70-99) mg/dl Calcium 8.8 (8.5-10.1) mg/dl Total Bilirubin 0.7 (0.2-1) mg/dl AST (15-37) U/L ALT 136 H (12-78) U/L Alkaline Phosphatase 115 (45-117) U/L Total Protein 7.2 (6.4-8.2) gm/dl Albumin 3.5 (3.4-5.0) gm/dl Globulin 3.7 (2.5-4.0) gm/dl Albumin/Globulin Ratio 0.9 (0.9-2) Lipase 161 (73-393) U/L TSH (0.300-4.500) uIu/ml Free T4 (0.8-1.6) ng/dl HCG, Qual (Negative) Urine Color [place] Urine Appearance Slightly Cloudy A (Clear) Urine pH (4.5-7.5) POC Urine pH Ur Specific [place] 1.024 (1.000-1.030) Urine Protein (Negative) POC Urine Protein Urine Glucose (UA) (Negative) POC Ur Glucose (UA) Urine Ketones (Negative) POC Urine Ketones Urine Blood (Negative) POC Urine Blood Urine Nitrite (Negative) POC Urine Nitrite Urine Bilirubin (Negative) POC Urine Bilirubin Urine Urobilinogen (Negative) POC Urine Urobilinogen Ur Leukocyte Esterase (Negative) POC U Leukocyte Esteras Urine RBC 0-4 (0-4) /hpf Urine WBC 0-5 (0-5) /hpf Ur Epithelial Cells 10-20 H (0-5) /lpf Urine Bacteria 1+ H (Negative) Urine Mucus Present A (None Prsent) Urine Yeast Budding A (None Prsent) Urine Test (Negative) SARS-CoV-2 Ag (Rapid) (Negative) 04/24/20 04/24/20 04/24/20 Range/Units 11:00 11:00 12:33 WBC (4.8-10.8) K/uL RBC (4.2-5.4) M/uL Hgb (12.0-16.0) g/dL Hct (37-47) % MCV (80-100) fL MCH (25-34) pg MCHC (32-36) g/dL RDW Std Deviation (36.4-46.3) fL RDW Coeff of Anand (11.5-14.5) % Plt Count (130-400) K/uL MPV (7.4-10.4) fL Immature Gran % (Auto) % Neut % (Auto) % Lymph % (Auto) % [place] % (Auto) % Eos % (Auto) % Baso % (Auto) % Neut # (Auto) (1.4-6.5) K/uL Lymph # (Auto) (1.2-3.4) K/uL [place] # (Auto) (0.11-0.59) K/uL Eos # (Auto) (0-0.5) K/uL Baso # (Auto) (0-0.2) K/uL Immature Gran # (Auto) (0.00-0.02) K/uL Sodium (136-145) mmol/L Potassium 3.5 (3.5-5.1) mmol/L Chloride (98-107) mmol/L Carbon Dioxide (21-32) mmol/L Anion Gap (3-11) BUN (7-18) mg/dl Creatinine (0.6-1.2) mg/dl Est Cr Clr Drug Dosing ml/min Est GFR ( Amer) Est GFR (Non-Af Amer) BUN/Creatinine Ratio (10-20) Glucose (70-99) mg/dl Calcium (8.5-10.1) mg/dl Total Bilirubin (0.2-1) mg/dl AST 291 H (15-37) U/L ALT (12-78) U/L Alkaline Phosphatase (45-117) U/L Total Protein (6.4-8.2) gm/dl Albumin (3.4-5.0) gm/dl Globulin (2.5-4.0) gm/dl Albumin/Globulin Ratio (0.9-2) Lipase (73-393) U/L TSH (0.300-4.500) uIu/ml Free T4 (0.8-1.6) ng/dl HCG, Qual (Negative) Urine Color Urine Appearance (Clear) Urine pH (4.5-7.5) POC Urine pH Cancelled Ur Specific [place] (1.000-1.030) Urine Protein (Negative) POC Urine Protein Cancelled Urine Glucose (UA) (Negative) POC Ur Glucose (UA) Cancelled Urine Ketones (Negative) POC Urine Ketones Cancelled Urine Blood (Negative) POC Urine Blood Cancelled Urine Nitrite (Negative) POC Urine Nitrite Cancelled Urine Bilirubin (Negative) POC Urine Bilirubin Cancelled Urine Urobilinogen (Negative) POC Urine Urobilinogen Cancelled Ur Leukocyte Esterase (Negative) POC U Leukocyte Esteras Cancelled Urine RBC (0-4) /hpf Urine WBC (0-5) /hpf Ur Epithelial Cells (0-5) /lpf Urine Bacteria (Negative) Urine Mucus (None Prsent) Urine Yeast (None Prsent) Urine Test Negative (Negative) SARS-CoV-2 Ag (Rapid) (Negative) 04/24/20 04/24/20 04/24/20 Range/Units 14:16 14:16 Unknown WBC (4.8-10.8) K/uL RBC (4.2-5.4) M/uL Hgb (12.0-16.0) g/dL Hct (37-47) % MCV (80-100) fL MCH (25-34) pg MCHC (32-36) g/dL RDW Std Deviation (36.4-46.3) fL RDW Coeff of Anand (11.5-14.5) % Plt Count (130-400) K/uL MPV (7.4-10.4) fL Immature Gran % (Auto) % Neut % (Auto) % Lymph % (Auto) % [place] % (Auto) % Eos % (Auto) % Baso % (Auto) % Neut # (Auto) (1.4-6.5) K/uL Lymph # (Auto) (1.2-3.4) K/uL [place] # (Auto) (0.11-0.59) K/uL Eos # (Auto) (0-0.5) K/uL Baso # (Auto) (0-0.2) K/uL Immature Gran # (Auto) (0.00-0.02) K/uL Sodium (136-145) mmol/L Potassium (3.5-5.1) mmol/L Chloride (98-107) mmol/L Carbon Dioxide (21-32) mmol/L Anion Gap (3-11) BUN (7-18) mg/dl Creatinine (0.6-1.2) mg/dl Est Cr Clr Drug Dosing ml/min Est GFR ( Amer) Est GFR (Non-Af Amer) BUN/Creatinine Ratio (10-20) Glucose (70-99) mg/dl Calcium (8.5-10.1) mg/dl Total Bilirubin (0.2-1) mg/dl AST (15-37) U/L ALT (12-78) U/L Alkaline Phosphatase (45-117) U/L Total Protein (6.4-8.2) gm/dl Albumin (3.4-5.0) gm/dl Globulin (2.5-4.0) gm/dl Albumin/Globulin Ratio (0.9-2) Lipase (73-393) U/L TSH 5.320 H (0.300-4.500) uIu/ml Free T4 1.35 (0.8-1.6) ng/dl HCG, Qual Negative (Negative) Urine Color Urine Appearance (Clear) Urine pH (4.5-7.5) POC Urine pH Ur Specific [place] (1.000-1.030) Urine Protein (Negative) POC Urine Protein Urine Glucose (UA) (Negative) POC Ur Glucose (UA) Urine Ketones (Negative) POC Urine Ketones Urine Blood (Negative) POC Urine Blood Urine Nitrite (Negative) POC Urine Nitrite Urine Bilirubin (Negative) POC Urine Bilirubin Urine Urobilinogen (Negative) POC Urine Urobilinogen Ur Leukocyte Esterase (Negative) POC U Leukocyte Esteras Urine RBC (0-4) /hpf Urine WBC (0-5) /hpf Ur Epithelial Cells (0-5) /lpf Urine Bacteria (Negative) Urine Mucus (None Prsent) Urine Yeast (None Prsent) Urine Test (Negative) SARS-CoV-2 Ag (Rapid) Negative (Negative) Administered Medications Discontinued Medications Hydralazine HCl (Hydralazine Hcl 20 Mg/Ml Vial) 5 mg IV NOW ONE Stop: 04/24/20 14:57 Last Admin: 04/24/20 15:31 Dose: 5 mg Documented by: [id number] Sodium Chloride (Nss 1000ml) 1,000 mls @ 999 mls/hr IV .Q1H1M ONE Stop: 04/24/20 11:31 Last Infusion: 04/24/20 12:07 Dose: 0 mls/hr Documented by: [id number] Admin: 04/24/20 11:06 Dose: 999 mls/hr Documented by: [id number] Piperacillin Sod/Tazobactam Sod (Zosyn) 4.5 gm in 120 mls @ 240 mls/hr IV NOW ONE Stop: 04/24/20 14:23 Last Infusion: 04/24/20 15:02 Dose: 0 mls/hr Documented by: [id number] Admin: 04/24/20 14:18 Dose: 240 mls/hr Documented by: [id number] Ioversol (Ioversol 100ml) 94 ml IV ONCE ONE Stop: 04/24/20 11:51 Last Admin: 04/24/20 11:51 Dose: 94 ml Documented by: [id number] Morphine Sulfate (Morphine Sulfate 10 Mg/Ml Carp/Vial) 6 mg IV NOW STA Stop: 04/24/20 10:32 Last Admin: 04/24/20 11:07 Dose: 6 mg Documented by: [id number] Morphine Sulfate (Morphine Sulfate 10 Mg/Ml Carp/Vial) 6 mg IV NOW STA Stop: 04/24/20 14:24 Last Admin: 04/24/20 14:47 Dose: 6 mg Documented by: [id number] Morphine Sulfate (Morphine Sulfate 4 Mg/Ml 1 Ml Carp\Vial) Confirm Administered Dose 4 mg .ROUTE .STK-MED ONE Stop: 04/24/20 14:43 Last Admin: 04/24/20 14:47 Dose: Not Given Documented by: [id number] Morphine Sulfate (Morphine Sulfate 2 Mg/Ml Carp) Confirm Administered Dose 2 mg .ROUTE .STK-MED ONE Stop: 04/24/20 14:44 Last Admin: 04/24/20 14:47 Dose: Not Given Documented by: [id number] Ondansetron HCl (Ondansetron Inj 2 Mg/Ml 2 Ml Vial) 4 mg IV NOW STA Stop: 04/24/20 10:32 Last Admin: 04/24/20 11:06 Dose: 4 mg Documented by: [id number] Discharge Plan Visit Data Chief Complaint: Back Injury/Pain Stated Complaint: LOW BACK PAIN,FATIGUE,DIZZINESS ED Provider: Tutu Lerma Discharge Problem: Back pain, Transaminitis, Abdominal pain Discharge Instructions Interventions: ED Discharge Assessment Last Done: 04/24/20 16:21 Forms Stand Alone Forms: [employer] Prescriptions Prescriptions: No Action glimepiride 2 mg tablet 2 mg PO DAILY Qty: 30 RF: 2 metformin 1,000 mg tablet 1,000 mg PO BID Qty: 180 RF: 1 hydrocodone-acetaminophen [Talpa] 5-325 mg tablet 1 tab PO Q6H PRN (Reason: pain) Qty: 20 RF: 0 prednisone 20 mg tablet See Rx Instructions PO .COMPLEX Qty: 30 RF: 0 methocarbamol 500 mg tablet 500 mg PO TID Qty: 30 RF: 1 uxiqbugwkrx-ekuunzthf-hxg C-Mn Capsule 1 cap PO QAM RF: 0 cholecalciferol (vitamin D3) [Vitamin D3] 10 mcg (400 unit) Capsule 10 mcg PO QAM RF: 0 potassium gluconate 595 mg (99 mg) Tablet 595 mg PO DAILY RF: 0 turmeric 400 mg Capsule 400 mg PO QAM RF: 0 ibuprofen 200 mg Tablet 400 mg PO Q6H PRN (Reason: feber/pain) RF: 0 cannabidiol 100 mg/mL Solution 0 mg PO DIRECTED PRN (Reason: Anxiety) RF: 0 verapamil 40 mg tablet 40 mg PO QAM RF: 0 rizatriptan 5 mg tablet 5 mg PO DIRECTED PRN (Reason: Migraine Headache) RF: 0 Referrals Referrals: Romi Albert MD [Primary Care Provider] - Discharge Problem: Back pain Qualifiers: Back pain location: low back pain Chronicity: acute Back pain laterality: unspecified Sciatica presence: unspecified whether sciatica present Qualified Code(s): M54.5 - Low back pain Abdominal pain Qualifiers: Abdominal location: unspecified location Qualified Code(s): R10.9 - Unspecified abdominal pain
[2020-04-24 11:20] LABS: Appearance Urine Slightly Cloudy (Clear); Color Urine Orange
[2020-04-24 11:22] LABS: Basophils # (auto) 0.06 K/uL (0-0.2); Basophils % (auto) 0.4 %; Eosinophils # (auto) 0.22 K/uL (0-0.5); Eosinophils % (auto) 1.5 %; Hematocrit (blood only) 40.1 % (37-47); Hemoglobin 13.4 g/dL (12.0-16.0); Immature Granulocytes # (auto) 0.13 K/uL (0.00-0.02); Immature Granulocytes % (auto) 0.9 %; Lymphocytes # (auto) 3.74 K/uL (1.2-3.4); Lymphocytes % (auto) 25.9 %; Mean Corpuscular Hemoglobin 30.4 pg (25-34); Mean Corpuscular Hgb Conc 33.4 g/dL (32-36); Mean Corpuscular Volume 90.9 fL (80-100); Mean Platelet Volume 10.1 fL (7.4-10.4); Monocytes # (auto) 0.97 K/uL (0.11-0.59); Monocytes % (auto) 6.7 %; Neutrophils # (auto) 9.32 K/uL (1.4-6.5); Neutrophils % (auto) 64.6 %; Platelet Count 265 K/uL (130-400); RDW Coefficient of Variation 13.7 % (11.5-14.5); RDW Standard Deviation 45.4 fL (36.4-46.3); Red Blood Count 4.41 M/uL (4.2-5.4); Specific Gravity Urine 1.024 (1.000-1.030); White Blood Count 14.44 K/uL (4.8-10.8)
[2020-04-24 11:24] LABS: Mucus Urine Present (None Prsent)
[2020-04-24 11:26] LABS: Bacteria Urine 1+ (Negative); RBC Urine 0-4 /hpf (0-4); WBC Urine 0-5 /hpf (0-5)
[2020-04-24 11:47] LABS: Albumin Globulin Ratio 0.9 (0.9-2); Albumin Level 3.5 gm/dl (3.4-5.0); BUN Creatinine Ratio 25.6 (10-20); Bilirubin,Total 0.7 mg/dl (0.2-1); Calcium 8.8 mg/dl (8.5-10.1); Creatinine Clr Calc Pharmacy 122.5 ml/min; Est GFR (African American) 104.8; Est GFR (Non-African American) 90.4; Globulin 3.7 gm/dl (2.5-4.0); Total Protein 7.2 gm/dl (6.4-8.2)
[2020-04-24] MEDS ORDERED: OPTIRAY 320 100ml IV ONE (11:50)
--- NOTE | 2020-04-24 12:17 | CT Scan Report ---
CT OF THE CHEST WITH IV CONTRAST CLINICAL HISTORY: fall lower thoracic pain and right lower chest wall. COMPARISON STUDY: Chest radiograph and right rib series June 02, 2017. TECHNIQUE: Following IV administration of 94 mL of Optiray-320, helical axial images of the chest we re obtained. Sagittal and coronal reconstructions were viewed as well as maximal intensity projectio ns on an independent 3-D workstation. Automated exposure control was utilized for the study. A dose lowering technique was utilized adhering to the principles of ALARA. CT DOSE: 2480.70 mGy.cm FINDINGS: There is no evidence for hepatic injury to the thoracic aorta. Size of the heart is normal . There is no pericardial effusion. No enlarged thoracic lymph nodes are present. There is no mediast inal hematoma. Postoperative findings within the cervical spine are partially imaged. No acute rib or thoracic spine fracture is noted. There is no pneumothorax or pulmonary contusion. The abdomen and p leeann will be reported separately. Hepatic steatosis is noted. There are no suspicious pulmonary nodu les. IMPRESSION: 1. No acute traumatic findings within the chest. 2. Hepatic steatosis. ACT 112: Negative or not required by law. Electronically signed by: Armaan Medellin M.D. 04/24/2020 12:16 PM
--- NOTE | 2020-04-24 12:22 | CT Scan Report ---
CT abd pelvis IV con only CLINICAL HISTORY: Right flank pain OF TRAUMA ONE WEEK AGO. HEMATURIA. COMPARISON STUDY: May 03 2013 TECHNIQUE: The patient was scanned in a dynamic helical fashion during intravenous administration of 94 cc of Optiray 320 A dose lowering technique was utilized adhering to the principles of ALARA. CT DOSE: FINDINGS: Lower chest: The heart is normal in size and configuration, without pericardial effusion. The lung ba ses and pleural spaces are clear. Liver: There is hepatic steatosis. No focal masses are visualized. The hepatic and portal veins appea r patent. Gallbladder: Unremarkable. Spleen: Normal in size and attenuation. Pancreas: Unremarkable. Adrenal glands: Unremarkable. Kidneys: There is symmetric renal cortical enhancement. The kidneys are normal in size without hydron ephrosis. Bowel: There are no transition zones to indicate bowel obstruction. There is colonic diverticulosis. There is no evidence of acute diverticulitis. By history the appendix is surgically absent. Peritoneum: There is no intraperitoneal free air or abdominal ascites. Vasculature: The abdominal aorta is normal in course and caliber. Adenopathy: None. Pelvic viscera: The bladder, and pelvic viscera are unremarkable. Skeletal structures: No destructive osseous lesions are seen. There are a few scattered sclerotic les ions, statistically representing bone islands. IMPRESSION: 1. No evidence of bowel obstruction. No evidence of free air 2. Hepatic steatosis 3. Diverticulosis. No evidence of acute diverticulitis. 4. No urinary tract calculi identified. ACT 112: Negative or not required by law. Electronically signed by: Raymond Lee M.D. 04/24/2020 12:20 PM
[2020-04-24 13:00] LABS: Potassium 3.5 mmol/L (3.5-5.1)
[2020-04-24 13:36] LABS: Pregnancy Test, Urine Negative (Negative)
[2020-04-24] MEDS ORDERED: PIPERACILLIN/TAZOBACTAM 4.5 GM/120 ML BAG IV ONE (13:54)
[2020-04-24] MEDS ORDERED: PIPERACILL/TAZOBAC CONSULT ACTIVE PRN (13:54)
[2020-04-24] MEDS ORDERED: MoRPHine SULFATE 4 MG/ML 1 ML CARP\\VIAL ONE (14:42)
[2020-04-24] MEDS ORDERED: MoRPHine SULFATE 2 MG/ML CARP ONE (14:43)
[2020-04-24] MEDS ORDERED: hydrALAZINE HCL 20 MG/ML VIAL IV ONE (14:56)
[2020-04-24 15:01] LABS: Pregnancy Test, Serum Negative (Negative)
--- NOTE | 2020-04-24 15:07 | History & Physical Report ---
Date of Service April 24, 2020 Assessment & Plan (1) Back spasm: This is the clear cause of the majority of her pain in the back but makes diagnosis of pyelonephritis +/-acute cholangitis difficult to ascertain from exam. Continue [place] as prescribed as an outpatient, start Toradol 15 mg IV as needed. (2) Acute UTI: Continue Zosyn to cover both possible cholangitis and more likely UTI. Pin point growth on culture from Apr 22. Unclear if elevated WBC due to steroids versus infection, however hypothermic placed in the ER and has a recent PCP visit in March is concerning for infection. Follow-up urine and blood cultures (3) Hematuria: Recent records show persistent hematuria. Recommend repeating urinalysis in 4 to 6 weeks to make sure resolution. If she continues to have persistent hematuria recommend referral to urology as an outpatient. Current UA unable to interpreted due to Azo use. (4) Hypertensive urgency: Suspect secondary to stress, prednisone use and pain. Hydralazine 5 mg IV now, then as needed for systolic blood pressure > 180. (5) Transaminitis: Rather than toro to an MRCP and gastroenterology consult will trend LFTs overnight. If increasing recommend MRCP and consult gastroenterology for concern of acute cholangitis. ?secondary to prednisone/glimepiride. (6) Hypothermia: Suggestive of infection as above. TSH added to assess to rule out hypothyroidism. (7) Diabetes mellitus: Recent diagnosis of this however HbA1c 8.3 on Metformin (for PCOS). Started glimepiride as an outpatient. Will hold both this and Metformin during inpatient stay. Start Lantus 10 units twice daily with weight-based insulin correction and carb ratio coverage. (8) PCOS (polycystic ovarian syndrome): Continue Metformin as an outpatient. (9) Morbid obesity: Admission and Anticipated Discharge Date Admission Date: April 24, 2020 History of Present Illness Primary Care Provider: Romi Albert MD Tsering Us is a 44 year old female who presents to the ER with intractable back pain after a mechanical fall. Initial fall was on the 02 April slipping on mud. She did not have significant back pain following this but fell again on when she slipped on ice falling on her back. Seen by her PCP with XR following this with no acute bony abnormality identified. Central and right flank pain continued to get a lot worse. Pain severity 10/10. No radiating pain, perianal numbness or bowel/bladder incontinence. Pain worse with any movement especially twisting and bending. Started prednisone yesterday and took one dose and hasn't helped. She woke up this morning feeling exhausted and dizzy th erefore decided to come to the ER. In the ER she was noted to have elevated transaminases however CT A/P was unremarkable other than hepatic steatosis. She was referred to medicine for admission and ongoing management of Right back pain, RUQ transaminitis and hypothermia. Allergies Allergy/AdvReac Type Severity Reaction Status Date / Time latex Allergy Mild rash Verified 04/24/20 11:14 Home Medications Medication Instructions Recorded Confirmed Type [id number] C-Mn 1 cap PO QAM 04/30/18 04/29/20 History cholecalciferol (vitamin D3) 10 mcg PO QAM 08/05/19 04/29/20 History [Vitamin D3] potassium gluconate 595 mg PO DAILY 08/05/19 04/29/20 History turmeric 400 mg PO QAM 08/05/19 04/24/20 History methocarbamol 500 mg tablet 500 mg PO TID #30 tab 04/11/20 04/29/20 Rx glimepiride 2 mg tablet 2 mg PO DAILY #30 tab 04/23/20 04/29/20 Rx metformin 1,000 mg tablet 1,000 mg PO BID #180 tab 04/23/20 04/29/20 Rx cannabidiol 0 mg PO DIRECTED PRN 04/24/20 04/29/20 History rizatriptan 5 mg PO DIRECTED PRN 04/24/20 04/29/20 History verapamil 40 mg PO QAM 04/24/20 04/24/20 History blood sugar diagnostic #100 ea 04/26/20 04/29/20 Rx lancets 33 gauge #100 ea 04/26/20 04/29/20 Rx Past Med/Surg History Medical History (Updated 04/30/20 @ 08:27 by Romi Albert MD) Aneurysm of left internal carotid artery Back contusion Cervical cord compression with myelopathy Cervical disc disease Concussion Contusion of ribs Fall due to slipping on ice or snow Kidney stone Urinary tract infection Surgical History History of appendectomy History of arthroplasty of knee primary repair of knee ligament cruciate anterior History of knee surgery History of laparoscopy With fulguration of oviducts History of tonsillectomy Family History Father Diabetes Grandfather Myocardial infarction Denies family history of Ovarian cancer Prostate cancer Breast cancer Lung cancer Colorectal cancer Hypertension Social History Smoking Status: Never smoker Second Hand Exposure: Yes; Hx Alcohol Use: Yes Alcohol type: beer and hard liquor Hx Substance Use: No Preferred Language: Tajik Communication Ability: Effective Airport Planner Required: No Beliefs That Will Affect Care: None marital status: Current Living Situation: Spouse current occupational status: 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 Feels Safe at Home: Yes caffeine: Yes (coffee) Dental Care, Regularly: No Physical Activity Frequency: 1-2 Times per Week Seatbelt Use: always Sunscreen Use: Yes (depends ) Assistive Devices: None Review of Systems Review of Systems: All systems reviewed & are unremarkable except as noted in HPI & below Physical Exam Constitutional: WD/WN, vitals as above Eyes: + anicteric sclerae; normal pupil size ENMT: external ear and nose normal, oropharynx normal Neck: trachea midline, no thyromegaly Respiratory: normal respiratory effort, lungs clear to auscultation Cardiovascular: RRR, no murmur, no edema Gastrointestinal (Abdomen): Inspection/Auscultation: abdomen normal to inspection and normal bowel sounds; abdomen not distended Percussion/Palpation: + abdomen tender (RUQ) and abdomen soft; no guarding and abdomen not rigid Musculoskeletal: Spine: lumbar spine normal to inspection, + pain with thoraco-lumbar ROM and + paraspinal tenderness (Right lumbar) Skin: no rashes, warm and dry Neurologic: moves all extremities and awake; no focal motor deficits and not confused Psychiatric: A+Ox3, euthymic affect Genitourinary: + CVA tenderness (right) Results & Data Results & Data ([facility]) Vital Signs (Past 12 Hours) Vital Signs Temp Pulse Pulse Resp BP BP Pulse Ox 04/24/20 14:20 60 20 217/108 H 100 04/24/20 13:30 72 18 172/76 H 98 04/24/20 12:00 57 L 20 184/96 H 99 04/24/20 10:12 35.0 C L 75 20 149/[address] abd pelvis IV con only IMPRESSION: 1. No evidence of bowel obstruction. No evidence of free air 2. Hepatic steatosis 3. Diverticulosis. No evidence of acute diverticulitis. 4. No urinary tract calculi identified. CT OF THE CHEST WITH IV CONTRAST IMPRESSION: 1. No acute traumatic findings within the chest. 2. Hepatic steatosis. Medications Administered ER medications given: NSS 1 hour bolus Morphine 6 mg IV x2 Ondansetron 4 mg IV Zosyn 4.5 g IV Code Status & VTE Plan Code Status Full VTE Prophylaxis Plan VTE Prophylaxis will be ordered: Yes Reason for no VTE drug order: Treatment not indicated Reason for no VTE mechanical prophylaxis: Treatment not indicated PG Care Time/CCT Total # of Minutes Spent Total Time Spent with Patient: Total time spent is greater than 50% in coordination of care (as documented) at patient's floor/unit and/or counseling patient: Coding Level of Care Code 66466 Initial Inpt Care Lvl 2 Diagnoses Back spasm M62.830 Acute UTI N39.0 Hematuria R31.9 Hypertensive urgency I16.0 Transaminitis R74.01 Hypothermia T68.XXXA Diabetes mellitus E11.9 PCOS (polycystic ovarian syndrome) E28.2 Morbid obesity E66.01
[2020-04-24 16:04] LABS: Thyroid Stimulating Hormone 5.32 uIu/ml (0.300-4.500)
[2020-04-24 16:16] LABS: T4 Free Thyroxine 1.35 ng/dl (0.8-1.6)
[2020-04-24] MEDS ORDERED: GLUCOSE 10 TABS/TUBE PO PRN (16:42)
[2020-04-24] MEDS ORDERED: POLYETHYLENE (MIRALAX) 17 GM PACK PO PRN (16:42)
[2020-04-24] MEDS ORDERED: hydrALAZINE HCL 20 MG/ML VIAL IV PRN (16:42)
[2020-04-24] MEDS ORDERED: GLUCAGON FOR INJ 1 MG VIAL SQ PRN (16:42)
[2020-04-24] MEDS ORDERED: ALUMINUM/MAGNESIUM SUSP 30 ML UDC PO PRN (16:42)
[2020-04-24] MEDS ORDERED: CARBOHYDRATES FOR HYPOGLYCEMIA PO PRN (16:42)
[2020-04-24] MEDS ORDERED: GLUCOSE 40% GEL 15 GM TUBE PO PRN (16:42)
[2020-04-24] MEDS ORDERED: DEXTROSE 50% 50 ML SYRINGE IV PRN (16:42)
[2020-04-24] MEDS ORDERED: ONDANSETRON INJ 2 MG/ML 2 ML VIAL IV PRN (16:42)
[2020-04-24] MEDS ORDERED: ACETAMINOPHEN 325 MG TAB PO PRN (16:42)
[2020-04-24] MEDS: HYDROCODONE/ACETAMOPHEN 5/325MG TAB PO PRN ×2 (17:05→23:51)
[2020-04-24] MEDS: INSULIN ASPART 100 UNITS/ML 3 ML PEN SC SCH ×2 (17:59→20:44)
[2020-04-24] MEDS: LIDOCAINE 5% 1 PATCH TD SCH (18:01)
[2020-04-24] MEDS: PIPERACILLIN/TAZOBACTAM 4.5 GM in DEXTROSE 5% 100 ML IV SCH (20:35)
[2020-04-24] MEDS: KETOROLAC TROMETHAMINE 15 MG/ML VIAL IV PRN (20:41)
[2020-04-24] MEDS: INSULIN GLARGINE SOLOSTAR 100 UNITS/ML 3 ML PEN SC SCH (20:43)
[2020-04-25] MEDS: PIPERACILLIN/TAZOBACTAM 4.5 GM in DEXTROSE 5% 100 ML IV SCH ×3 (04:39→20:58)
[2020-04-25] MEDS: KETOROLAC TROMETHAMINE 15 MG/ML VIAL IV PRN ×2 (07:29→11:19)
[2020-04-25] MEDS: HYDROCODONE/ACETAMOPHEN 5/325MG TAB PO PRN (07:40)
[2020-04-25] MEDS: VERAPAMIL HCL 40 MG TAB PO SCH (08:57)
[2020-04-25] MEDS: LIDOCAINE 5% 1 PATCH TD SCH (08:57)
[2020-04-25] MEDS: CHOLECALCIFEROL 400 UNITS 10 MCG TAB PO SCH (08:58)
[2020-04-25] MEDS: INSULIN ASPART 100 UNITS/ML 3 ML PEN SC SCH ×4 (09:00→20:58)
[2020-04-25] MEDS ORDERED: NON-FORMULARY MEDICATION (Turmeric 400 mg Capsule) PO SCH (09:00)
[2020-04-25] MEDS ORDERED: NON-FORMULARY MEDICATION (Potassium Gluconate 595 mg (99 mg) Tablet) PO SCH (09:00)
[2020-04-25] MEDS ORDERED: GLUCOSAMINE CHONDROIT VIT C MN PO SCH (09:00)
[2020-04-25] MEDS: INSULIN GLARGINE SOLOSTAR 100 UNITS/ML 3 ML PEN SC SCH (09:03)
--- NOTE | 2020-04-25 10:01 | Gastrointestinal Consultation ---
Date of Consultation April 25, 2020 Assessment & Plan (1) Transaminitis: AST 291, ALT 136. T Bili normal at 0.7. No jaundice. CT scan does not indicate any biliary ductal abnormalities. Patient has flank pain on the right side and reports this began after her fall. Hepatic steatosis is seen on imaging. She is being treated for a UTI and does have a WBC count of >14,000. She had a positive Gracia sign on physical exam. -Given normal bilirubin, would favor to start with obtaining a RUQ US to rule out any acute liver or gallbladder issues; pending result, could consider an MRCP if warranted. -Continue to follow LFTs. -Obtain an acute hepatitis panel to exclude infection -Will need to make outpatient efforts to address weight, diabetes, diet & exercise due to hepatic steatosis. -Will defer TSH abnormalities to primary team. -Will await return of labs from today to trend LFTs & Bilirubin as this has the potential to change our plan moving forward. Supervising Physician Co-Signing Physician Notes I personally evaluated the patient and agree with the findings as documented by Cristina Dickson, MAT Exam: abd: soft, moderate tenderness, nd History of Present Illness Reason for Consultation: Elevated LFTs Attending Physician: Albert Song MD History of Present Illness Patient is a 44 yo female with a PMH of DM2, Morbid obesity, and PCOS who presents to [facility] after sustaining a mechanical fall twice in recent weeks. Since her falls, she has been having low back pain and flank pain on the right side. GI has been consulted for elevated LFTs. Upon presentation to the ED, the patient had a metabolic panel that indicated an AST of 291 and ALT of 136. Bilirubin is normal with a Tbili of 0.7. A CT scan of the abdomen/pelvis indicated hepatic steatosis. WBC count is 14,440. Patient is reportedly on Zosyn and has a UTI. Hemoglobin A1C is 8.3. TSH is abnormal. Patient is morbidly obese. She denies a history of liver disease, no IVDA, or excessive Tylenol or alcohol use. She reports she has never had elevated liver function tests. She notes that her flank pain is sharp and stabbing. She denies jaundice, but her friend that accompanies her indicates that she thinks her eyes are yellow. Allergies Allergy/AdvReac Type Severity Reaction Status Date / Time latex Allergy Mild rash Verified 04/24/20 11:14 Home Medications Medication Instructions Recorded Confirmed Type [id number]-[id number]-fvs C-Mn 1 cap PO QAM 04/30/18 04/24/20 History cholecalciferol (vitamin D3) 10 mcg PO QAM 08/05/19 04/24/20 History [Vitamin D3] potassium gluconate 595 mg PO DAILY 08/05/19 04/24/20 History turmeric 400 mg PO QAM 08/05/19 04/24/20 History methocarbamol 500 mg tablet 500 mg PO TID #30 tab 04/11/20 04/24/20 Rx hydrocodone 5 mg-acetaminophen 325 1 tab PO Q6H PRN #20 tab 04/15/20 04/24/20 Rx mg tablet prednisone 20 mg tablet See Rx Instructions PO .COMPLEX 04/15/20 04/24/20 Rx #30 tab glimepiride 2 mg tablet 2 mg PO DAILY #30 tab 04/23/20 04/24/20 Rx metformin 1,000 mg tablet 1,000 mg PO BID #180 tab 04/23/20 04/24/20 Rx cannabidiol 0 mg PO DIRECTED PRN 04/24/20 04/24/20 History ibuprofen 400 mg PO Q6H PRN 04/24/20 04/24/20 History rizatriptan 5 mg PO DIRECTED PRN 04/24/20 04/24/20 History verapamil 40 mg PO QAM 04/24/20 04/24/20 History Patient History Medical History (Updated 04/24/20 @ 16:27 by Tutu Lerma DO) Aneurysm of left internal carotid artery Back contusion Cervical cord compression with myelopathy Cervical disc disease Concussion Contusion of ribs Fall due to slipping on ice or snow Kidney stone Urinary tract infection Surgical History History of appendectomy History of arthroplasty of knee primary repair of knee ligament cruciate anterior History of knee surgery History of laparoscopy With fulguration of oviducts History of tonsillectomy Family History Father Diabetes Grandfather Myocardial infarction Denies family history of Ovarian cancer Prostate cancer Breast cancer Lung cancer Colorectal cancer Hypertension Social History Smoking Status: Never smoker Second Hand Exposure: Yes; Hx Alcohol Use: Yes Alcohol type: beer and hard liquor Hx Substance Use: No Preferred Language: Moroccan Communication Ability: Effective [employer] Heater Required: No Beliefs That Will Affect Care: None marital status: Current Living Situation: Spouse current occupational status: 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 Other Information That Helps Us Care for You: No Feels Safe at Home: Yes Safety Concerns: Feels Safe At This Time caffeine: Yes (coffee) Dental Care, Regularly: No Physical Activity Frequency: 1-2 Times per Week Seatbelt Use: always Sunscreen Use: Yes (depends ) Assistive Devices: Glasses Review of Systems Constitutional: no fever and no chills Eyes: friend reports that she notices patient's eyes appear yellow Ear, Nose, Mouth, Throat: no problem reported Respiratory: no cough and no dyspnea Cardiovascular: no chest pain Gastrointestinal: no abdominal pain, no nausea, no vomiting, no constipation, no diarrhea/loose stools and no blood in stools Musculoskeletal: + back pain Integumentary: no yellowing of the skin Neurologic: + falls Psychiatric: no problem reported Hematologic / Lymphatic: no easy bleeding Physical Exam Constitutional: well developed Eyes: I cannot appreciate any scleral icterus reported by friend at the present time Neck: normal visual inspection Respiratory: normal respiratory effort Cardiovascular: Extremities: no edema Gastrointestinal (Abdomen): Inspection/Auscultation: abdomen normal to inspection Percussion/Palpation: + abdomen tender (RUQ ) and abdomen soft Musculoskeletal: Head/Neck/Chest: normocephalic Skin: no rashes and no jaundice Neurologic: Speech / Cognition: normal speech Psychiatric: A+Ox3, euthymic affect Results & Data ([facility]) Vital Signs (Past 12 Hours) Vital Signs Temp Pulse Resp BP Pulse Ox 04/25/20 07:45 36.8 C 71 16 125/80 97 04/24/20 22:52 36.5 C 66 18 109/66 96 PG Care Time/CCT Total # of Minutes Spent Total Time Spent with Patient: Total time spent is greater than 50% in coordination of care (as documented) at patient's floor/unit and/or counseling patient: Coding Level of Care Code 72875 Inpt Consult Level 4 Diagnoses Transaminitis R74.01
[2020-04-25 10:12] LABS: Albumin Level 3.3 gm/dl (3.4-5.0); Bilirubin Direct 0.3 mg/dl (0-0.2); Bilirubin,Total 0.9 mg/dl (0.2-1); Total Protein 6.8 gm/dl (6.4-8.2)
[2020-04-25] MEDS: SODIUM CHLORIDE 0.9% 1000ML 1,000 ML IV SCH ×2 (11:20→20:58)
[2020-04-25 11:44] LABS: Hepatitis B Surface Ab Quant < 3.10 mIU/mL (>or=10mIU/mL Immune); Hepatitis B Surface Antibody Non-Immune
[2020-04-25 11:55] LABS: Hepatitis B Surf Ag Rflx Conf Neg (Neg)
--- NOTE | 2020-04-25 11:55 | Ultrasound Report ---
US liver HISTORY: 44 years-old Female Elevated LFTs acutely elevated LFTs COMPARISON: CT abdomen and pelvis 04/24/2020 TECHNIQUE: Multiple real-time sonographic images of the abdominal right upper quadrant were obtained assessing grayscale appearance and color flow FINDINGS: Pancreas is mostly obscured by bowel gas. There is increased echogenicity of the liver with poor thro ugh transmission. No hepatic mass lesion or marginal nodularity. The gallbladder is unremarkable. No shadowing cholelithiasis, color wall thickening or pericholecystic fluid. Sonographic Gracia sign not reported. Normal common bile duct, 3 mm. Imaged right kidney is unremarkable without hydronephrosis. IMPRESSION: 1. Hepatic steatosis. 2. Unremarkable gallbladder. 3. No biliary ductal dilation. ACT 112: Negative or not required by law. The above report was generated using voice recognition software. It may contain grammatical, syntax o r spelling errors. Electronically signed by: Brice Marie M.D. 04/25/2020 11:54 AM
[2020-04-25 12:23] LABS: Hepatitis C IgG 13Yrs+Old_Rflx Neg (Neg)
--- NOTE | 2020-04-25 13:46 | Hospitalist Progress Note ---
Date of Service April 25, 2020 Assessment & Plan (1) Back spasm: This is the clear cause of the majority of her right posterior lateral back pain but makes diagnosis of pyelonephritis +/-acute cholangitis difficult to ascertain from exam. Continue [place] as prescribed as an outpatient, Toradol 15 mg IV as needed. Both on hold however pending HIDA scan (2) Acute UTI: Continue Zosyn to cover both possible cholangitis and more likely UTI. Pin point growth on culture from Apr 22. Unclear if elevated WBC due to steroids versus infection. Await final culture results. (3) Hematuria: Recent records show persistent hematuria. Recommend repeating urinalysis in 4 to 6 weeks to make sure of resolution. If she continues to have persistent hematuria, recommend referral to urology as an outpatient. Current UA unable to interpreted due to Azo use. (4) Hypertensive urgency: Suspect secondary to stress, prednisone use and pain. Now normalized. (5) Transaminitis: Liver enzymes are uptrending. Hepatitis screen ordered. Will obtain HIDA with ejection fraction. GI consultation requested. Serial lab studies. (6) Hypothermia: Suggestive of infection as above. Free T4 are normal. Resolved (7) Diabetes mellitus: Recent diagnosis . HbA1c 8.3 on Metformin (for PCOS). Started glimepiride as an outpatient. Holding glimepiride and Metformin during inpatient stay. Started Lantus 10 units twice daily with weight-based insulin correction and carb ratio coverage temporarily. (8) PCOS (polycystic ovarian syndrome): Continue Metformin as an outpatient. (9) Morbid obesity: BMI greater than 40 Disposition: Eventual discharge to home Present on Admission?: Yes Admission and Anticipated Discharge Date Admission Date: April 24, 2020 Subjective Alert and oriented. No distress. She continued continues to have right flank pain. She has some mild tenderness to deep palpation of the right upper quadrant. She has palpable musculoskeletal discomfort in the right posterior lateral flank area which she believes she suffered in a fall several weeks ago. She may have 2 types of pain in her gallbladder is called into question. Liver enzymes are trending upward. GI consult requested and HIDA scan with EF ordered. Hepatitis panel also ordered. Continue IV fluids and Zosyn for now. She has hepatic steatosis which I am sure is chronic and I would not expect LFTs to be trending upward on a daily basis simply due to hepatic steatosis. Review of Systems Review of Systems: Constitutional-no fever or chills ENT-no blurred vision, no double vision, no epistaxis, no sore throat Respiratory-no cough, no wheezing, no shortness of breath Cardiac-no palpitations, no chest pain, no syncope GI-no nausea, vomiting, diarrhea, melena, hematochezia. Mild right upper quadrant tenderness -no urinary retention, no urinary incontinence, no dysuria, no hematuria Musculoskeletal-no joint pain. Right posterior lateral flank musculoskeletal palpable discomfort Skin-no bruising, no rashes, no pruritus Neuro-no isolated weakness, no paresthesia, no weakness Psych-no depression, no anxiety Physical Exam Physical Exam: General-alert and oriented x3, no fevers, no chills HEENT-head atraumatic and normocephalic, TMs intact bilaterally, pupils equal and reactive to light, extraocular muscles intact Neck-no lymphadenopathy or thyromegaly, trachea midline Chest-clear to auscultation percussion. No rales wheezing or rhonchi Cardiac-regular rate and rhythm, normal S1 and S2, no murmurs Abdomen-normal bowel sounds, no hepatosplenomegaly. Mild right upper quadrant tenderness with deep palpation. No masses Extremities-no cyanosis, clubbing, or edema Musculoskeletaltender right lateral flank musculature superficially. No shingles Neuro-cranial nerves II through XII intact, motor and sensory function within normal limits, strength symmetrical 5/5, no focal deficits Psych-normal affect, normal mood Results & Data Results & Data ([facility]) Vital Signs (Past 12 Hours) Vital Signs Temp Pulse Resp BP Pulse Ox 04/25/20 07:45 36.8 C 71 16 125/80 97 Laboratory Results 04/24/20 11:00 04/24/20 12:33 PG Care Time/CCT Total # of Minutes Spent Total Time Spent with Patient: Total time spent is greater than 50% in coordination of care (as documented) at patient's floor/unit and/or counseling patient: Coding Level of Care Code 67582 Subseq Hosp Care Lvl 3 Diagnoses Back spasm M62.830 Acute UTI N39.0 Hematuria R31.9 Hypertensive urgency I16.0 Transaminitis R74.01 Hypothermia T68.XXXA Diabetes mellitus E11.9 PCOS (polycystic ovarian syndrome) E28.2 Morbid obesity E66.01
[2020-04-25] MEDS ORDERED: INSULIN GLARGINE SOLOSTAR 100 UNITS/ML 3 ML PEN SQ SCH (21:45)
[2020-04-26] MEDS: PIPERACILLIN/TAZOBACTAM 4.5 GM in DEXTROSE 5% 100 ML IV SCH ×2 (03:24→11:44)
[2020-04-26 06:22] LABS: Basophils # (auto) 0.08 K/uL (0-0.2); Basophils % (auto) 0.9 %; Eosinophils # (auto) 0.28 K/uL (0-0.5); Eosinophils % (auto) 3.3 %; Hematocrit (blood only) 38.2 % (37-47); Hemoglobin 13.2 g/dL (12.0-16.0); Immature Granulocytes # (auto) 0.03 K/uL (0.00-0.02); Immature Granulocytes % (auto) 0.3 %; Lymphocytes % (auto) 26.7 %; Mean Corpuscular Hgb Conc 34.6 g/dL (32-36); Mean Corpuscular Volume 89.7 fL (80-100); Mean Platelet Volume 9.8 fL (7.4-10.4); Monocytes # (auto) 0.51 K/uL (0.11-0.59); Monocytes % (auto) 5.9 %; Neutrophils % (auto) 62.9 %; Platelet Count 251 K/uL (130-400); RDW Coefficient of Variation 13.7 % (11.5-14.5); RDW Standard Deviation 44.8 fL (36.4-46.3); Red Blood Count 4.26 M/uL (4.2-5.4)
[2020-04-26 07:08] LABS: BUN Creatinine Ratio 20.9 (10-20); Bilirubin Direct 0.2 mg/dl (0-0.2); Bilirubin,Total 0.8 mg/dl (0.2-1); Calcium 8.4 mg/dl (8.5-10.1); Creatinine Clr Calc Pharmacy 117.7 ml/min; Est GFR (African American) 100.2; Est GFR (Non-African American) 86.4; Potassium 4.2 mmol/L (3.5-5.1); Total Protein 6.4 gm/dl (6.4-8.2)
[2020-04-26] MEDS ORDERED: SINCALIDE IV ONE (08:30)
[2020-04-26] MEDS ORDERED: SODIUM CHLORIDE 0.9% IV ONE (08:30)
--- NOTE | 2020-04-26 09:57 | Gastroenterology Progress Note ---
Date of Service April 26, 2020 Assessment & Plan (1) Transaminitis: (2) Fatty liver: -Await remainder of hepatitis studies. -As for fatty liver, this can be further addressed as an outpatient. -Continue to trend LFTs. Thank you for allowing us to participate in the care of this patient. If you should have any further questions or concerns, do not hesitate to contact us at extension [phone] or [phone]. Admission and Anticipated Discharge Date Admission Date: April 24, 2020 Subjective Patient is a 44 yo female followed by GI during this admission for elevated LFTs. The patient's LFTs are still elevated, but have improved to an AST of 138 and ALT of 117. T Bili and D bili are within normal limits. US of the liver and gallbladder indicated hepatic steatosis, but no acute gallbladder concerns. The patient had a HIDA scan this morning ordered by the primary team and results indicated an EF of 80%. No evidence of acute issue. Patient reports her back h urts from laying flat on the table for the HIDA scan. No acute complaints at present. No new symptoms since 04/25/2020. Review of Systems Constitutional: no fever and no chills Cardiovascular: no chest pain Gastrointestinal: no vomiting, no diarrhea/loose stools and no blood in stools Genitourinary: + flank pain Musculoskeletal: + back pain Physical Exam Constitutional: well developed Respiratory: normal respiratory effort Cardiovascular: Extremities: no edema Gastrointestinal (Abdomen): Percussion/Palpation: abdomen soft; abdomen nontender Musculoskeletal: Head/Neck/Chest: normocephalic Psychiatric: A+Ox3, euthymic affect Results & Data Results & Data ([facility]) Vital Signs (Past 12 Hours) Vital Signs Temp Pulse Resp BP Pulse Ox 04/26/20 07:13 36.8 C 63 20 144/84 H 97 04/25/20 23:07 37.0 C 63 14 128/74 97 PG Care Time/CCT Total # of Minutes Spent Total Time Spent with Patient: Total time spent is greater than 50% in coordination of care (as documented) at patient's floor/unit and/or counseling patient: Coding Level of Care Code 66447 Subseq Hosp Care Lvl 3 Diagnoses Transaminitis R74.01 Fatty liver K76.0
--- NOTE | 2020-04-26 10:07 | Nuclear Medicine Report ---
NM hepatobiliary EF CLINICAL HISTORY: 44 years-old Female with RUQ pain, elevated LFT. Acute right upper quadrant abdomi nal pain with elevated LFTs TECHNIQUE: Following the intravenous administration of 5.4 mCi of technetium-99m Choletec, sequentia l abdominal images were obtained. In order to evaluate the contractile response of the gallbladder, 2.5 mcg of Kinevac was administered by slow intravenous infusion over 30 min starting approximately 6 0 min after the administration of the radiopharmaceutical. Sequential imaging was continued for 45 m in after the start of the Kinevac infusion. COMPARISON: CT abdomen and pelvis 04/25/2020 FINDINGS: There is prompt, uniform accumulation of the tracer by the liver. There is normal filling of the int rahepatic ducts, common bile duct and gallbladder and normal excretion of the tracer into the duodenu m. There is adequate contraction of the gallbladder. The calculated gallbladder ejection fraction i s 80% (normal >40%). There is moderate enterogastric reflux. IMPRESSION: 1. Normal contractile response of the gallbladder to Kinevac infusion. 2. Moderate enterogastric reflux. ACT 112: Negative or not required by law. The above report was generated using voice recognition software. It may contain grammatical, syntax o r spelling errors. Electronically signed by: Brice Marie M.D. 04/26/2020 10:06 AM
[2020-04-26] MEDS: SODIUM CHLORIDE 0.9% 1000ML 1,000 ML IV SCH (10:12)
[2020-04-26] MEDS: LIDOCAINE 5% 1 PATCH TD SCH (10:12)
[2020-04-26] MEDS: VERAPAMIL HCL 40 MG TAB PO SCH (10:14)
[2020-04-26] MEDS: CHOLECALCIFEROL 400 UNITS 10 MCG TAB PO SCH (10:14)
[2020-04-26] MEDS: KETOROLAC TROMETHAMINE 15 MG/ML VIAL IV PRN (10:19)
[2020-04-26] MEDS: INSULIN GLARGINE SOLOSTAR 100 UNITS/ML 3 ML PEN SC SCH (10:31)
[2020-04-26] MEDS: INSULIN ASPART 100 UNITS/ML 3 ML PEN SC SCH ×2 (11:14→11:49)
--- NOTE | 2020-04-26 11:49 | Discharge Summary ---
Date of Service April 26, 2020 Admission HPI Per Admitting Provider Fell slipped on mud on , then on ice flat on back. Seen by PCP th and organized XR. Pain right side of back. Prednisone started yesterday once yesterday. Pain in right flank. This morning woke up and being exahausted and dizzy. Principal Diagnosis Muscular low back spasms, possible UTI, elevated liver function enzymes due to hepatic steatosis Discharge Exam General-alert and oriented x3, no fevers, no chills HEENT-head atraumatic and normocephalic, TMs intact bilaterally, pupils equal and reactive to light, extraocular muscles intact Neck-no lymphadenopathy or thyromegaly, trachea midline Chest-clear to auscultation percussion. No rales wheezing or rhonchi Cardiac-regular rate and rhythm, normal S1 and S2, no murmurs Abdomen-normal bowel sounds, nontender, no hepatosplenomegaly Extremities-no cyanosis, clubbing, or edema Neuro-cranial nerves II through XII intact, motor and sensory function within normal limits, strength symmetrical 5/5, no focal deficits Psych-normal affect, normal mood Discharge Data Allergies Allergy/AdvReac Type Severity Reaction Status Date / Time latex Allergy Mild rash Verified 04/24/20 11:14 Consultations 04/24/20 14:20 ED Decision to Admit Stat 04/25/20 09:21 Consult Gastroenterology Routine Ordered Studies 04/24/20 10:31 CT abd pelvis IV con only Stat CT chest diagnostic w con Stat 04/25/20 10:30 US liver Routine Diabetes Follow up Diabetes Follow-up Needed for Newly Diagnosed Diabetes Hospital Course (1) Back spasm: This is the clear cause of the majority of her right posterior lateral back pain but makes diagnosis of pyelonephritis +/-acute cholangitis difficult to ascertain from exam. Continue Cowdrey as prescribed as an outpatient, Toradol 15 mg IV as needed. Resolved (2) Acute UTI: Continue Zosyn to cover both possible cholangitis and more likely UTI. Pin point growth on culture from Apr 22. Unclear if elevated WBC due to steroids versus infection. Final culture results nondiagnostic (3) Hematuria: Recent records show persistent hematuria. Recommend repeating urinalysis in 4 to 6 weeks to make sure of resolution. If she continues to have persistent hematuria, recommend referral to urology as an outpatient. Current UA unable to interpreted due to Azo use. (4) Hypertensive urgency: Suspect secondary to stress, prednisone use and pain. Now normalized. (5) Transaminitis: Liver enzymes are elevated probably chronically from hepatic steatosis. HIDA scan with ejection fraction is normal. GI consultation appreciated . Serial lab studies. (6) Hypothermia: Suggestive of infection as above. Free T4 are normal. Resolved (7) Diabetes mellitus: Recent diagnosis . HbA1c 8.3 on Metformin (for PCOS). Started glimepiride as an outpatient. Holding glimepiride and Metformin during inpatient stay. Restarted discharge Started Lantus 10 units twice daily with weight-based insulin correction and carb ratio coverage temporarily. (8) PCOS (polycystic ovarian syndrome): Continue Metformin as an outpatient. (9) Morbid obesity: BMI greater than 40 Disposition: discharge to home today, April 26 Total Time Total Time Spent Total Time Spent (In Minutes): 35 minutes Discharge Plan Discharge Items Patient Disposition: Home - Self-Care Reason For Visit: ACUTE UTI, TRANSAMINITIS, BACK PAIN, POSSIBLE Discharge Diagnosis: Musculoskeletal low back pain, hepatic steatosis with elevated liver enzymes, probable urinary tract infection Activity: Resume your previous activity Non-emergency contact: Primary Care Provider Call non-emergency contact if: you have any medication questions and your symptoms worsen Follow-up/Referrals: Romi Albert MD [Primary Care Provider] - 04/30/20 11:30 am Diet: Carb Consistent or DM2 Addtl Attending Provider Instructions: Resume previous medications. Decrease alcohol intake as this can contribute to fatty liver. Pending Studies at Discharge: No Stand-Alone Forms: [facility], Smoking Cessation Medications and DC Order Prescriptions: Continued glimepiride 2 mg tablet 2 mg PO DAILY Qty: 30 RF: 2 metformin 1,000 mg tablet 1,000 mg PO BID Qty: 180 RF: 1 (DME) OneTouch Verio test strips Strip See Rx Instructions .ROUTE .MEDSUPPLY Qty: 100 RF: 5 (DME) lancets [OneTouch Delica Lancets] 33 gauge misc See Rx Instructions .ROUTE .MEDSUPPLY Qty: 100 RF: 5 hydrocodone-acetaminophen [Cowdrey] 5-325 mg tablet 1 tab PO Q6H PRN (Reason: pain) Qty: 20 RF: 0 prednisone 20 mg tablet See Rx Instructions PO .COMPLEX Qty: 30 RF: 0 methocarbamol 500 mg tablet 500 mg PO TID Qty: 30 RF: 1 ctkdjsttnmz-vvtroxltc-vhj C-Mn Capsule 1 cap PO QAM RF: 0 cholecalciferol (vitamin D3) [Vitamin D3] 10 mcg (400 unit) Capsule 10 mcg PO QAM RF: 0 potassium gluconate 595 mg (99 mg) Tablet 595 mg PO DAILY RF: 0 turmeric 400 mg Capsule 400 mg PO QAM RF: 0 ibuprofen 200 mg Tablet 400 mg PO Q6H PRN (Reason: feber/pain) RF: 0 cannabidiol 100 mg/mL Solution 0 mg PO DIRECTED PRN (Reason: Anxiety) RF: 0 verapamil 40 mg tablet 40 mg PO QAM RF: 0 rizatriptan 5 mg tablet 5 mg PO DIRECTED PRN (Reason: Migraine Headache) RF: 0 Discharge Orders: Discharge Order (Routine); Ordered 04/26/20 Ordered By: Albert Burns/Other Patient Handouts: Urinary Tract Infections in Women, Facts About Diabetes Admission Data Admit Date/Time: 04/24/20 15:48 Attending Provider: Albert Song Admit Provider: Daryl Garsia Primary Care Provider: Romi Albert Other Providers: Daryl Garsia ; Robert Riley ; Yesica Cody ; Cristina Dickson ; Ronal Beverly Other Interventions: Discharge Summary Assessment (RN) Last Done: 04/26/20 11:58 Coding Level of Care Code D/C Day Management >30 mins Diagnoses Back spasm M62.830 Acute UTI N39.0 Hematuria R31.9 Hypertensive urgency I16.0 Transaminitis R74.01 Hypothermia T68.XXXA Diabetes mellitus E11.9 PCOS (polycystic ovarian syndrome) E28.2 Morbid obesity E66.01
[2020-04-27 02:42] LABS: Hepatitis A Antibody IgM NON-REACTIVE (NON-REACTIVE); Hepatitis A Antibody Total NON-REACTIVE (NON-REACTIVE); Hepatitis B Core Antibody IgM NON-REACTIVE (NON-REACTIVE)
== END 2020-04-26 12:56 | disposition home or self-care (01) | DRG 690 ==
LOC: ED 10:10 → SUATTDRO 15:48 → 3N 15:48

== ENCOUNTER 2023-11-05 14:42 | Observation (INO) ==
--- NOTE | 2023-11-05 15:06 | ED Triage Note ---
Date of Service November 05, 2023 Provider in Triage Author: Yosvany Alberts History of Present Illness This patient was briefly evaluated while in triage. An abbreviated physical exam was performed. This patient is a 48-year-old Female who presents to the ED for evaluation of epigastric discomfort, burping and reflux. The patient is concerned that she has an H. pylori infection as she has had that in the past. Patient denies any pain radiating into the back or chest. Physical Exam CONSTITUTIONAL: Healthy and well nourished. Patient does not appear in any acute distress. HEENT: No scleral icterus or conjunctival injection or pallor. RESPIRATORY: Clear to auscultation bilaterally with no wheezing, crackles, rhonchi or stridor. CARDIOVASCULAR: Regular rate and rhythm with no murmurs, rubs or gallops. GASTROINTESTINAL: Bowel sounds present in all quadrants. Mild epigastric tenderness to palpation. INTEGUMENTARY: No rash or other significant dermatologic conditions noted. HEMATOLOGIC: No ecchymosis or petechiae. PSYCHIATRIC: Positive affect. NEUROLOGIC: No focal neurologic deficits noted. Initial orders for labs and / or imaging were placed and patient was placed in the waiting area until a bed is available. Please see further documentation for the full ED course.
--- NOTE | 2023-11-05 16:14 | Electrocardiogram Report ---
Test Reason : Blood Pressure : / mmHG Vent. Rate : 079 BPM Atrial Rate : 079 BPM P-R Int : 176 ms QRS Dur : 092 ms QT Int : 386 ms P-R-T Axes : 043 028 014 degrees QTc Int : 442 ms Normal sinus rhythm Normal ECG When compared with ECG of 01-JUN-2022 07:22, No significant change was found Confirmed by Héctor Garcia ([id number]) on 11/05/2023 4:14:51 PM Referred By: Confirmed By:Héctor Garcia
[2023-11-05 16:20] LABS: Appearance Urine Cloudy (Clear); Bacteria Urine Automated 2+ (None Seen); Bilirubin Urine Negative (Negative); Blood Urine Negative (Negative); Cast Urine Automated 0-2 /lpf (0-2); Color Urine Dark Yellow; Glucose Urine UA Negative (Negative); Ketones Urine Trace (Negative); Leukocyte Esterase Urine Negative (Negative); Nitrite Urine Negative (Negative); Protein Urine Negative (Negative); Specific Gravity Urine 1.027 (1.000-1.030); Urobilinogen Urine Negative (Negative); WBC Urine Automated 0-5 /hpf (0-5); pH Urine 5.5 (4.5-7.5)
[2023-11-05 16:31] LABS: Pregnancy Test, Serum Negative (Negative)
[2023-11-05 16:42] LABS: Basophils # (auto) 0.09 K/uL (0.00-0.20); Basophils % (auto) 0.9 %; Eosinophils # (auto) 0.16 K/uL (0.00-0.50); Eosinophils % (auto) 1.6 %; Hematocrit (blood only) 37.8 % (37.0-47.0); Hemoglobin 12.9 g/dl (12.0-16.0); Immature Granulocytes # (auto) 0.07 K/uL (0.01-0.20); Immature Granulocytes % (auto) 0.7 %; Lymphocytes # (auto) 2.17 K/uL (1.20-3.40); Lymphocytes % (auto) 22.1 %; Mean Corpuscular Hemoglobin 30.1 pg (25.0-34.0); Mean Corpuscular Hgb Conc 34.1 g/dL (32.0-36.0); Mean Corpuscular Volume 88.1 fL (80.0-100.0); Mean Platelet Volume 10.4 fL (9.4-12.4); Monocytes # (auto) 0.72 K/uL (0.11-0.59); Monocytes % (auto) 7.3 %; Neutrophils % (auto) 67.4 %; Platelet Count 299 K/uL (130-400); RDW Coefficient of Variation 13.4 % (11.5-14.5); RDW Standard Deviation 42.9 fL (36.4-46.3); Red Blood Count 4.29 M/uL (4.20-5.40); White Blood Count 9.81 K/ul (4.8-10.8)
[2023-11-05 16:57] LABS: Alanine Aminotransferase 12 U/L (7-52); Albumin Globulin Ratio 1.3 (0.9-2); Albumin Level 4.3 gm/dl (3.4-5.0); Alkaline Phosphatase 62 U/L (34-104); Anion Gap 8 (3-11); BUN Creatinine Ratio 20.6 (10-20); Bilirubin,Total 0.6 mg/dl (0.2-1.0); Blood Urea Nitrogen 14 mg/dl (6-23); Calcium 9.9 mg/dl (8.6-10.3); Carbon Dioxide 25 mmol/L (21-32); Chloride 104 mmol/L (98-107); Creatinine Clr Calc Pharmacy 133.8 ml/min; Est GFR (Non-African American) 102.7 ml/min; Globulin 3.4 gm/dl (2.5-4.0); Glucose 86 mg/dl (70-99(Fasting)); Lipase 33 U/L (11-82); Sodium 137 mmol/L (136-145); Total Protein 7.7 gm/dl (6.0-8.3); Troponin I High Sensitivity 2.5 pg/ml (0-14)
--- NOTE | 2023-11-05 17:55 | Emergency Department Note ---
Impression & Plan Abdominal pain, GERD (gastroesophageal reflux disease), HTN (hypertension) ED Provider Note NAME: TONG BOOTHE AGE: 48 SEX: F : 1975 ARRIVES VIA: Walk-In INFORMANT: Patient ED PROVIDER(S): Tutu Lerma DO CHIEF COMPLAINT: Abdominal pain HPI: Patient is a 48-year-old female who presents to the ER for abdominal pain. She notes its located in the epigastric region. She describes it as a burning pain. It is worse when she lays flat and improves when she sits up. It occurs with eating or drinking anything. Started about 2 days ago. Feels like the previous time she had H. pylori. Denies any chest pain or shortness of breath. No dysuria, urgency, or frequency. Previous appendectomy but no other belly surgeries. No other exacerbating or remitting factors. ADDITIONAL HISTORY OBTAINED: Per HPI Chronic Medical/Social Conditions Affecting Care: Per HPI PAST MEDICAL HISTORY:See Below PAST SURGICAL HISTORY:See Below FAMILY HISTORY:See Below SOCIAL HISTORY:See Below HOME MEDICATIONS:See Below ALLERGIES:See Below VITALS:See Below PHYSICAL EXAMINATION: GENERAL: Sitting up in bed, alert, well appearing, well nourished, no distress, non-toxic EYE EXAM: normal conjunctiva. OROPHARYNX: mucous membranes are moist NECK: supple, no nuchal rigidity, no adenopathy, non-tender LUNGS: Clear to auscultation. Normal chest wall mechanics HEART: no murmurs, S1 normal and S2 normal ABDOMEN: abdomen soft, TTP in epigastric region, normo-active bowel sounds, no masses, no rebound or guarding. UPPER EXTREMITIES: upper extremities are grossly normal. LOWER EXTREMITIES: No pitting edema. NEURO EXAM: Normal sensorium, cranial nerves II-XII grossly intact, normal speech, no gross weakness of arms, no gross weakness of legs. MEDICAL DECISION MAKING: Patient is a 48-year-old female who presents the ER with with a past medical history of diabetes and obesity for abdominal pain. IV was established blood work was obtained. Labs show no significant leukocytosis or anemia. BMP on LFTs bilirubin was unremarkable. Troponin was negative. Lipase was normal. hCG was negative. UA was slightly contaminated. Do not feel this is consistent with UTI. Patient was given a GI cocktail with minimal improvement. CT abdomen pelvis shows some inflammation of the pancreas. Question if this is early pancreatitis. Is worse with eating or drinking. Patient was updated bedside. Discussed case with the hospitalist for further evaluation management treatment. Was given a dose Protonix. Consults/Care Managements Discussions: Per MDM Triage Nursing notes reviewed. Limited review of prior medical records performed Vital Signs: reviewed and remarkable for htn Differential diagnosis: Differential diagnoses includes but is not limited to gastritis, peptic ulcer disease, GERD, gallbladder disease, pancreatitis, small bowel obstruction, appendicitis, diverticulitis, hernia, urinary tract infection, torsion, /ectopic (if female), perforation, trauma, infectious. ER treatment provided: See below Diagnostics interpreted by me include EKG and cardiac monitoring as listed below: -Cardiac Monitoring: An order was placed for continuous cardiac monitoring. The monitor shows a rate of 70 with sinus rhythm. -ECG: Sinus rhythm rate 79 Normal axis No PVCs QTc 442 -Laboratory studies:Interpreted by me as stated above in MDM and shown below. Imaging studies: Xrays: As interpreted by me:none CTs show: CT abdomen pelvis per my preliminary interpretation showed no obvious bowel obstruction CT abdomen pelvis per radiology shows no acute pathology Procedures:none Critical Care: None Past Med/Surg History Problem List (Updated 11/05/23 @ 22:48 by Tutu Lerma DO) HTN (hypertension) (Acute) GERD (gastroesophageal reflux disease) (Acute) Abdominal pain (Acute) Osteoarthritis of hands, bilateral Partial tear of rotator cuff Periorbital cellulitis of right eye Colon cancer screening Migraine headache (Acute) History of knee surgery History of laparoscopy With fulguration of oviducts History of arthroplasty of knee primary repair of knee ligament cruciate anterior Tension type headache Fatty liver DM2 (diabetes mellitus, type 2) Morbid obesity Metabolic syndrome Localized swelling, mass and lump, neck Exposure to confirmed case of COVID-19 Left knee pain Ruptured Bakers cyst Left knee DJD PMB (postmenopausal bleeding) Postmenopausal atrophic vaginitis Encounter for pre-operative examination Status post left knee replacement Encounter for examination following treatment at hospital Fatigue Thrush Aneurysm of left internal carotid artery pt states was told by [facility] neuro it did not require further f/u or intervention Cervical cord compression with myelopathy (Chronic) s/p surgical intervention x4, mild ROM limitation Medical History PCOS (polycystic ovarian syndrome) Unique anesthetic considerations present on preoperative anesthesia assessment Liver problem Varicose veins of both lower extremities Diabetes Migraines History of recurrent UTIs Cervical disc disease Kidney stone Surgical History History of total left knee replacement History of arthroscopy of left knee History of repair of ACL Hx of tubal ligation History of neck surgery History of cataract extraction History of tonsillectomy History of appendectomy Family History Father Diabetes Grandfather Myocardial infarction Denies family history of Ovarian cancer Prostate cancer Breast cancer Lung cancer Colorectal cancer Hypertension Social History Smoking Status: Never smoker Tobacco Type: Cigarettes Cigarettes Per Day: just an occasional if out with friends; Second Hand Exposure: Yes (hx as child); Do You Dip or Chew Tobacco: No; Hx Alcohol Use: Yes Alcohol type: hard liquor Hx Substance Use: No Preferred Language: Australian Communication Ability: Effective Animal Control Officer Required: No Beliefs That Will Affect Care: None marital status: Current Living Situation: Spouse Current Living Situation Comment: GRANDAUGHTERS STAY FREQUENTLY current occupational status: other 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 How many Children do You have: 1 Feels Safe at Home: Yes Childhood Exposure to Second-Hand Smoke: Yes Diet: regular caffeine: Yes (coffee) Dental Care, Regularly: No Physical Activity Frequency: 1-2 Times per Week Seatbelt Use: always Sunscreen Use: Yes (depends ) Assistive Devices: None Allergies Allergies Allergy/AdvReac Type Severity Reaction Status Date / Time latex Allergy Mild rash Verified 10/25/23 13:38 augmentin AdvReac Intermediate Rash Uncoded 10/25/23 13:38 Home Meds Home Medications Medication Instructions Recorded Confirmed aenwxkdyjeh-epmcvmvil-phd C-Mn 1 cap PO QAM 04/30/18 11/05/23 capsule potassium gluconate 595 mg (99 mg) 595 mg PO QAM 08/05/19 11/05/23 tablet calcium 600 mg capsule 600 mg PO QAM 03/05/22 11/05/23 cholecalciferol (vitamin D3) 100 300 mcg PO QAM 01/20/23 11/05/23 mcg (4,000 unit) capsule Iva 3 1 cap PO QAM 11/05/23 11/05/23 semaglutide 1 mg/dose (4 mg/3 mL) 1 mg subcut WK 11/05/23 11/05/23 subcutaneous pen injector (Ozempic) turmeric 1 cap PO QAM 11/05/23 11/05/23 Previous Rx's Medication Instructions Recorded lancets 33 gauge (OneTouch Delica #100 ea 04/26/20 Lancets) blood sugar diagnostic (OneTouch #180 ea 05/23/21 Verio test strips) pen needle, diabetic 31 gauge x #100 ea 06/05/21 5/16" (1st Tier Unifine Pentips Plus) metformin 1,000 mg tablet 1,000 mg PO QAM #90 tabs 08/12/23 verapamil 40 mg tablet 40 mg PO QAM #30 tabs 08/26/23 Results & Data (ED) Vital Signs Vital Signs - 24 hr 11/05/23 15:01 11/05/23 15:41 11/05/23 17:33 Temperature 36.7 C Temperature Source Temporal Artery Scan Pulse Rate 78 Pulse Rate [Apical] 65 Pulse Rhythm Regular Pulse Strength Normal Respiratory Rate 20 14 Respiratory Effort / Characteristics Non-Labored Spontaneous Respiratory Depth Normal Blood Pressure 151/102 H Blood Pressure [Left Arm] 146/96 H Blood Pressure Mean 118 Blood Pressure Mean [Left Arm] 112 Blood Pressure Position Sitting Blood Pressure Position [Left Arm] Pulse Oximetry 99 97 99 Oxygen Delivery Method Room Air Room Air Room Air Sepsis Recent Fever Within 48 Hours No Sepsis New/Unexplained Change in Mental Status N/A Sepsis Action Taken by Nursing No Action Required 11/05/23 21:16 Temperature Temperature Source Pulse Rate Pulse Rate [Apical] 70 Pulse Rhythm Pulse Strength Respiratory Rate 14 Respiratory Effort / Characteristics Respiratory Depth Blood Pressure Blood Pressure [Left Arm] 162/99 H Blood Pressure Mean Blood Pressure Mean [Left Arm] 120 Blood Pressure Position Blood Pressure Position [Left Arm] Sitting Pulse Oximetry 99 Oxygen Delivery Method Room Air Sepsis Recent Fever Within 48 Hours Sepsis New/Unexplained Change in Mental Status Sepsis Action Taken by Nursing Laboratory Data 11/05/23 Unknown 11/05/23 Unknown Lab Results 11/05/23 11/05/23 Range/Units 17:50 Unknown WBC 9.81 (4.8-10.8) K/ul RBC 4.29 (4.20-5.40) M/uL Hgb 12.9 (12.0-16.0) g/dl Hct 37.8 (37.0-47.0) % MCV 88.1 (80.0-100.0) fL MCH 30.1 (25.0-34.0) pg MCHC 34.1 (32.0-36.0) g/dL RDW Std Deviation 42.9 (36.4-46.3) fL RDW Coeff of Anand 13.4 (11.5-14.5) % Plt Count 299 (130-400) K/uL MPV 10.4 (9.4-12.4) fL Immature Gran % (Auto) 0.7 % Neut % (Auto) 67.4 % Lymph % (Auto) 22.1 % [place] % (Auto) 7.3 % Eos % (Auto) 1.6 % Baso % (Auto) 0.9 % Neut # (Auto) 6.60 H (1.40-6.50) K/uL Lymph # (Auto) 2.17 (1.20-3.40) K/uL [place] # (Auto) 0.72 H (0.11-0.59) K/uL Eos # (Auto) 0.16 (0.00-0.50) K/uL Baso # (Auto) 0.09 (0.00-0.20) K/uL Immature Gran # (Auto) 0.07 (0.01-0.20) K/uL Sodium 137 (136-145) mmol/L Potassium 3.6 TNP (3.5-5.1) mmol/L Chloride 104 (98-107) mmol/L Carbon Dioxide 25 (21-32) mmol/L Anion Gap 8 (3-11) BUN 14 (6-23) mg/dl Creatinine 0.68 (0.6-1.2) mg/dl Est Cr Clr Drug Dosing 133.8 ml/min Est GFR ( Amer) 119.0 ml/min Est GFR (Non-Af Amer) 102.7 ml/min BUN/Creatinine Ratio 20.6 H (10-20) Glucose 86 (70-99(Fasting)) mg/dl Calcium 9.9 (8.6-10.3) mg/dl Total Bilirubin 0.6 (0.2-1.0) mg/dl AST 25 TNP (13-39) U/L ALT 12 (7-52) U/L Alkaline Phosphatase 62 (34-104) U/L Troponin I High Sens 2.5 (0-14) pg/ml Total Protein 7.7 (6.0-8.3) gm/dl Albumin 4.3 (3.4-5.0) gm/dl Globulin 3.4 (2.5-4.0) gm/dl Albumin/Globulin Ratio 1.3 (0.9-2) Lipase 33 (11-82) U/L HCG, Qual Negative (Negative) Urine Color Dark Yellow Urine Appearance Cloudy A (Clear) Urine pH 5.5 (4.5-7.5) Ur Specific [place] 1.027 (1.000-1.030) Urine Protein Negative (Negative) Urine Glucose (UA) Negative (Negative) Urine Ketones Trace H (Negative) Urine Blood Negative (Negative) Urine Nitrite Negative (Negative) Urine Bilirubin Negative (Negative) Urine Urobilinogen Negative (Negative) Ur Leukocyte Esterase Negative (Negative) Urine WBC (Auto) 0-5 (0-5) /hpf Urine RBC (Auto) 3-5 H (0-2) /hpf U Hyaline Cast (Auto) 0-2 (0-2) /lpf U Epithel Cells (Auto) 6-10 H (0-2) /hpf Urine Bacteria (Auto) 2+ H (None Seen) Administered Medications Discontinued Medications Al Hydrox/Mg Hydrox/Simethicone (Aluminum/Magnesium Susp 30 Ml Udc) 30 ml PO NOW STA Stop: 11/05/23 17:52 Last Admin: 11/05/23 18:20 Dose: 30 ml Documented By: ROSALIO Pantoprazole Sodium 40 mg/ (Syringe) 10 mls @ 5 mls/min IV NOW ONE Stop: 11/05/23 17:52 Last Admin: 11/05/23 18:20 Dose: 5 mls/min Documented By: ROSALIO Sodium Chloride (Nss) 1,000 mls @ 999 mls/hr IV .Q1H1M ONE Stop: 11/05/23 22:38 Last Admin: 11/05/23 21:40 Dose: 999 mls/hr Documented By: MARCELINO Ioversol (Optiray 320 100ml) 94 ml IV ONCE ONE Stop: 11/05/23 18:32 Last Admin: 11/05/23 18:32 Dose: 94 ml Documented By: WILI Imaging Data Radiologist's Impression: Abdomen/Pelvis CT 11/05/23 18:16 CT abd pelvis IV con only CLINICAL HISTORY: abd pain TECHNIQUE: Helical axial images of the abdomen and pelvis were obtained and displayed. Automated dose lowering techniques and/or adjustment according to patient size were utilized for this exam. This exam was performed with intravenous contrast. CT DOSE: 1408.89 mGy.cm COMPARISON: Comparison is made to CT chest 04/24/2020 FINDINGS: Lower chest: No acute abnormality. Liver: Unremarkable. No focal lesions are seen. Gallbladder and biliary tree: No calcified gallstones. Normal caliber wall. No intra- or extrahepatic biliary ductal dilation. Pancreas: Mild fat stranding is seen about the pancreatic tail. Spleen: Splenule is incidentally noted. Adrenals: Unremarkable. Kidneys and ureters: Unremarkable. Bladder: Unremarkable. Reproductive organs: Unremarkable. Bowel: Diverticulosis is seen without evidence of diverticulitis. Lymph nodes Retroperitoneal: Unremarkable. Pelvic: Unremarkable. Mesenteric: Unremarkable. Peritoneum: Fat stranding is seen about the pancreatic tail. No fluid collections. Vessels: Unremarkable. Abdominal wall: Unremarkable. Bones: Degenerative changes in the visualized spine. IMPRESSION: Mild fat stranding is seen about the pancreatic tail which may be reflective of mild pancreatitis. No peripancreatic fluid collection. ACT 112: Negative or not required by law. Electronically signed by: Michael Moody M.D. 11/05/2023 7:14 PM Discharge Plan Visit Data Chief Complaint: Abdominal Pain Stated Complaint: THINKS HAS H. PILORY, CANT EAT OR DRINK ED Provider: Tutu Lerma Discharge Problem: Abdominal pain, GERD (gastroesophageal reflux disease), HTN (hypertension) Forms Stand Alone Forms: My [facility] Prescriptions Prescriptions: No Action (DME) lancets [OneTouch Delica Lancets] 33 gauge misc See Rx Instructions .ROUTE .MEDSUPPLY Qty: 100 5RF Rx Instructions: Test blood sugar once daily DX:E11.9 (DME) OneTouch Verio test strips Strip See Rx Instructions .ROUTE .MEDSUPPLY Qty: 180 1RF Rx Instructions: Test blood sugar 6 times per day. DX:E11.9 metformin 1,000 mg tablet 1,000 mg PO QAM Qty: 90 3RF verapamil 40 mg tablet 40 mg PO QAM Qty: 30 11RF (DME) pen needle, diabetic [1st Tier Unifine Pentips Plus] 31 gauge x 5/16" needle See Rx Instructions .Route Qty: 100 0RF Rx Instructions: Use with Ozempic pen ywxsuahfqtp-monmvojin-iko C-Mn Capsule 1 cap PO QAM potassium gluconate 595 mg (99 mg) Tablet 595 mg PO QAM calcium 600 mg Capsule 600 mg PO QAM cholecalciferol (vitamin D3) 100 mcg (4,000 unit) Capsule 300 mcg PO QAM Ozempic 1 mg/dose (4 mg/3 mL) pen injector 1 mg SUBCUT WK Iva 3 1 cap PO QAM turmeric 1 cap PO QAM Referrals Referrals: Romi Albert MD [Primary Care Provider] - Discharge Problem: Abdominal pain Qualifiers: Abdominal location: unspecified location Qualified Code(s): R10.9 - Unspecified abdominal pain GERD (gastroesophageal reflux disease) Qualifiers: Esophagitis presence: esophagitis presence not specified Qualified Code(s): K 21.9 - Gastro-esophageal reflux disease without esophagitis HTN (hypertension) Qualifiers: Hypertension type: unspecified Qualified Code(s): I10 - Essential (primary) hypertension
[2023-11-05] MEDS: PANTOprazole 40 MG in SYRINGE 0 ML IV ONE (18:20)
[2023-11-05] MEDS: ALUMINUM/MAGNESIUM SUSP 30 ML UDC PO STA (18:20)
[2023-11-05 18:30] LABS: Potassium 3.6 mmol/L (3.5-5.1)
[2023-11-05] MEDS: OPTIRAY 320 100ml IV ONE (18:32)
--- NOTE | 2023-11-05 19:16 | CT Scan Report ---
CT abd pelvis IV con only CLINICAL HISTORY: abd pain TECHNIQUE: Helical axial images of the abdomen and pelvis were obtained and displayed. Automated dose lowering techniques and/or adjustment according to patient size were utilized for this exam. This e xam was performed with intravenous contrast. CT DOSE: 1408.89 mGy.cm COMPARISON: Comparison is made to CT chest 04/24/2020 FINDINGS: Lower chest: No acute abnormality. Liver: Unremarkable. No focal lesions are seen. Gallbladder and biliary tree: No calcified gallstones. Normal caliber wall. No intra- or extrahepatic biliary ductal dilation. Pancreas: Mild fat stranding is seen about the pancreatic tail. Spleen: Splenule is incidentally noted. Adrenals: Unremarkable. Kidneys and ureters: Unremarkable. Bladder: Unremarkable. Reproductive organs: Unremarkable. Bowel: Diverticulosis is seen without evidence of diverticulitis. Lymph nodes Retroperitoneal: Unremarkable. Pelvic: Unremarkable. Mesenteric: Unremarkable. Peritoneum: Fat stranding is seen about the pancreatic tail. No fluid collections. Vessels: Unremarkable. Abdominal wall: Unremarkable. Bones: Degenerative changes in the visualized spine. IMPRESSION: Mild fat stranding is seen about the pancreatic tail which may be reflective of mild pancreatitis. No peripancreatic fluid collection. ACT 112: Negative or not required by law. Electronically signed by: Michael Moody M.D. 11/05/2023 7:14 PM
[2023-11-05] MEDS: SODIUM CHLORIDE 0.9% 1,000 ML IV ONE (21:40)
[2023-11-05] MEDS ORDERED: ONDANSETRON INJ 2 MG/ML 2 ML VIAL IV PRN (22:14)
--- NOTE | 2023-11-05 22:28 | History & Physical Report ---
Date of Service November 05, 2023 Assessment & Plan (1) Abdominal pain: (2) Acute inflammation of the pancreas: (3) Morbid obesity: (4) DM2 (diabetes mellitus, type 2): (5) Urinary tract infection: (6) HTN (hypertension): (7) GERD (gastroesophageal reflux disease): (8) Migraine headache: (9) Metabolic syndrome: Plan Abdominal pain with burning from epigastrium to substernal area/pancreatic inflammation- Lipase is normal at 33, making unclear the diagnosis of pancreatitis Patient's main symptoms of concern for her are burning sensation, abdominal bloating and belching whenever she eats. Differential includes medication side effect: Would stop turmeric, Ozempic and metformin for now Differential also includes but not limited to: Gastritis, esophagitis, peptic ulcer disease, recurrence of H. pylori gastritis, exocrine pancreatic insufficiency, bacterial overgrowth syndrome, gluten sensitive enteropathy N.p.o. except medications Pantoprazole 40 mg IV daily NSS + KCl 20 mEq at 100 mL/h Suspect her symptoms are more likely related to medication side effect. ED is already ordered H. pylori antibody. Will order celiac disease panel With pancreatic inflammation noted on CT, and if there is concern regarding EPI, could do trial of pancreatic enzymes as an outpatient Urinary tract infection/history of recurrent UTIs- Follow urine culture and sensitivity Ceftriaxone 2 g IV daily Diabetes mellitus- Hold metformin, Ozempic Glucose 86 upon admission, hold Accu-Cheks for now Migraine headache- Continue verapamil History of Present Illness Chief Complaint: The patient presents with an acute worsening of her chronic abdominal pain, that she describes as more significant burning from her epigastric region substernally, accompanied by abdominal bloating and burping. She reports that the pain is worse with eating, and improves when on empty stomach Primary Care Provider: Romi Albert MD The patient is a 48-year-old female with a past medical history including hypertension, GERD, migraine headache, fatty liver, diabetes mellitus type 2, morbid obesity, aneurysm of left internal carotid artery, osteoarthritis of hands bilaterally. She presents to the emergency department with a more acute worsening of her chronic abdominal discomfort, manifested by burning from her epigastric region substernally, and accompanied by abdominal bloating and burping. She reports her symptoms are worse when she eats, and improves on empty stomach. She also notes some urinary discomfort Allergies Allergy/AdvReac Type Severity Reaction Status Date / Time latex Allergy Mild rash Verified 10/25/23 13:38 amoxicillin [From Augmentin] AdvReac Intermediate Rash Verified 11/05/23 23:36 clavulanic acid AdvReac Intermediate Rash Verified 11/05/23 23:36 [From Augmentin] Home Medications Medication Instructions Recorded Confirmed Type [id number] C-Mn 1 cap PO QAM 04/30/18 11/05/23 History capsule potassium gluconate 595 mg (99 mg) 595 mg PO QAM 08/05/19 11/05/23 History tablet lancets 33 gauge (OneTouch Delica #100 ea 04/26/20 10/25/23 Rx Lancets) blood sugar diagnostic (OneTouch #180 ea 05/23/21 10/25/23 Rx Verio test strips) pen needle, diabetic 31 gauge x #100 ea 06/05/21 10/25/23 Rx 5/16" (1st Tier Unifine Pentips Plus) calcium 600 mg capsule 600 mg PO QAM 03/05/22 11/05/23 History cholecalciferol (vitamin D3) 100 300 mcg PO QAM 01/20/23 11/05/23 History mcg (4,000 unit) capsule metformin 1,000 mg tablet 1,000 mg PO QAM #90 tabs 08/12/23 11/05/23 Rx verapamil 40 mg tablet 40 mg PO QAM #30 tabs 08/26/23 11/05/23 Rx [place] 3 1 cap PO QAM 11/05/23 11/05/23 History semaglutide 1 mg/dose (4 mg/3 mL) 1 mg subcut WK 11/05/23 11/05/23 History subcutaneous pen injector (Ozempic) turmeric 1 cap PO QAM 11/05/23 11/05/23 History Past Med/Surg History Problem List (Updated 11/06/23 @ 05:27 by Roberto Ashford MD) Acute inflammation of the pancreas HTN (hypertension) (Acute) GERD (gastroesophageal reflux disease) (Acute) Abdominal pain (Acute) Osteoarthritis of hands, bilateral Partial tear of rotator cuff Periorbital cellulitis of right eye Colon cancer screening Migraine headache (Acute) History of knee surgery History of laparoscopy With fulguration of oviducts History of arthroplasty of knee primary repair of knee ligament cruciate anterior Tension type headache Fatty liver DM2 (diabetes mellitus, type 2) Morbid obesity Metabolic syndrome Localized swelling, mass and lump, neck Exposure to confirmed case of COVID-19 Left knee pain Ruptured Bakers cyst Left knee DJD PMB (postmenopausal bleeding) Postmenopausal atrophic vaginitis Encounter for pre-operative examination Status post left knee replacement Encounter for examination following treatment at hospital Fatigue Thrush Aneurysm of left internal carotid artery pt states was told by [facility] neuro it did not require further f/u or intervention Cervical cord compression with myelopathy (Chronic) s/p surgical intervention x4, mild ROM limitation Medical History PCOS (polycystic ovarian syndrome) Unique anesthetic considerations present on preoperative anesthesia assessment Liver problem Varicose veins of both lower extremities Diabetes Migraines History of recurrent UTIs Cervical disc disease Kidney stone Surgical History History of total left knee replacement History of arthroscopy of left knee History of repair of ACL Hx of tubal ligation History of neck surgery History of cataract extraction History of tonsillectomy History of appendectomy Family History Father Diabetes Grandfather Myocardial infarction Denies family history of Ovarian cancer Prostate cancer Breast cancer Lung cancer Colorectal cancer Hypertension Social History Smoking Status: Never smoker Tobacco Type: Cigarettes Cigarettes Per Day: just an occasional if out with friends; Second Hand Exposure: Yes (hx as child); Do You Dip or Chew Tobacco: No; Hx Alcohol Use: Yes Alcohol type: hard liquor Hx Substance Use: No Preferred Language: Chadian Communication Ability: Effective 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: No Beliefs That Will Affect Care: None marital status: Current Living Situation: Spouse Current Living Situation Comment: GRANDAUGHTERS STAY FREQUENTLY current occupational status: other 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 How many Children do You have: 1 Other Information That Helps Us Care for You: No Feels Safe at Home: Yes Safety Concerns: Feels Safe At This Time Childhood Exposure to Second-Hand Smoke: Yes Diet: regular caffeine: Yes (coffee) Dental Care, Regularly: No Physical Activity Frequency: 1-2 Times per Week Seatbelt Use: always Sunscreen Use: Yes (depends ) Assistive Devices: Glasses Assistive Devices Comment: reading glasses Review of Systems Review of Systems: The patient denies chest pain, palpitations, shortness of breath, dyspnea on exertion, cough, lower extremity swelling, sore throat, fevers, chills, sweats, nausea, vomiting, diarrhea , constipation, pelvic pain, blood in urine or stool, dysuria, urinary frequency or urgency, lightheadedness, dizziness, headache, memory loss, loss of consciousness, rash, abnormal bruising or bleeding, imbalance, focal or generalized weakness, numbness or tingling in arms or legs, generalized arthralgias or myalgias, back or neck pain, or night sweats. The review of systems is otherwise negative other than for that already noted above, and at least 10 systems have been reviewed. Physical Exam Physical Exam: The patient is awake, alert and oriented 3, well developed and well nourished, normocephalic and atraumatic, lying in bed and in no acute distress. HEENT--PERRL, EOMI, mucous membranes and oropharynx normal. Neck--supple. No JVD. No bruits. Thyroid normal, trachea midline, no adenopathy. Heart--normal S1 and S2. No murmurs, rubs or gallops. Lungs--clear bilaterally, no respiratory distress, no accessory muscle use. Abdomen--normal bowel sounds and soft. Nontender. Nondistended. Morbidly obese Extremities--No edema. Dermatologic--normal skin turgor, normal color, no abnormal lymph nodes, no rash. Neurologic--cranial nerves II through XII grossly intact. Rheumatologic--normal range of motion. Psychiatric--normal affect. Results & Data Results & Data Vital Signs (Past 12 Hours) Vital Signs Temp Pulse Pulse Resp BP BP Pulse Ox 11/05/23 21:16 70 14 162/99 H 99 11/05/23 17:33 65 14 146/96 H 99 11/05/23 15:41 97 11/05/23 15:01 36.7 C 78 20 151/102 H 99 O2 Del Method 11/05/23 21:16 Room Air 11/05/23 17:33 Room Air 11/05/23 15:41 Room Air 11/05/23 15:01 Room Air Laboratory Results Laboratory Results WBC 9.81 K/ul (4.8-10.8) 11/05/23 Unknown RBC 4.29 M/uL (4.20-5.40) 11/05/23 Unknown Hgb 12.9 g/dl (12.0-16.0) 11/05/23 Unknown Hct 37.8 % (37.0-47.0) 11/05/23 Unknown MCV 88.1 fL (80.0-100.0) 11/05/23 Unknown MCH 30.1 pg (25.0-34.0) 11/05/23 Unknown MCHC 34.1 g/dL (32.0-36.0) 11/05/23 Unknown RDW Std Deviation 42.9 fL (36.4-46.3) 11/05/23 Unknown RDW Coeff of Anand 13.4 % (11.5-14.5) 11/05/23 Unknown Plt Count 299 K/uL (130-400) 11/05/23 Unknown MPV 10.4 fL (9.4-12.4) 11/05/23 Unknown Immature Gran % (Auto) 0.7 % 11/05/23 Unknown Neut % (Auto) 67.4 % 11/05/23 Unknown Lymph % (Auto) 22.1 % 11/05/23 Unknown [place] % (Auto) 7.3 % 11/05/23 Unknown Eos % (Auto) 1.6 % 11/05/23 Unknown Baso % (Auto) 0.9 % 11/05/23 Unknown Neut # (Auto) 6.60 K/uL (1.40-6.50) H 11/05/23 Unknown Lymph # (Auto) 2.17 K/uL (1.20-3.40) 11/05/23 Unknown [place] # (Auto) 0.72 K/uL (0.11-0.59) H 11/05/23 Unknown Eos # (Auto) 0.16 K/uL (0.00-0.50) 11/05/23 Unknown Baso # (Auto) 0.09 K/uL (0.00-0.20) 11/05/23 Unknown Immature Gran # (Auto) 0.07 K/uL (0.01-0.20) 11/05/23 Unknown Sodium 137 mmol/L (136-145) 11/05/23 Unknown Potassium TNP 11/05/23 Unknown Chloride 104 mmol/L (98-107) 11/05/23 Unknown Carbon Dioxide 25 mmol/L (21-32) 11/05/23 Unknown Anion Gap 8 (3-11) 11/05/23 Unknown BUN 14 mg/dl (6-23) 11/05/23 Unknown Creatinine 0.68 mg/dl (0.6-1.2) 11/05/23 Unknown Est Cr Clr Drug Dosing 133.8 ml/min 11/05/23 Unknown Est GFR ( Amer) 119.0 ml/min 11/05/23 Unknown Est GFR (Non-Af Amer) 102.7 ml/min 11/05/23 Unknown BUN/Creatinine Ratio 20.6 (10-20) H 11/05/23 Unknown Glucose 86 mg/dl (70-99(Fasting)) 11/05/23 Unknown Calcium 9.9 mg/dl (8.6-10.3) 11/05/23 Unknown Total Bilirubin 0.6 mg/dl (0.2-1.0) 11/05/23 Unknown AST TNP 11/05/23 Unknown ALT 12 U/L (7-52) 11/05/23 Unknown Alkaline Phosphatase 62 U/L (34-104) 11/05/23 Unknown Troponin I High Sens 2.5 pg/ml (0-14) 11/05/23 Unknown Total Protein 7.7 gm/dl (6.0-8.3) 11/05/23 Unknown Albumin 4.3 gm/dl (3.4-5.0) 11/05/23 Unknown Globulin 3.4 gm/dl (2.5-4.0) 11/05/23 Unknown Albumin/Globulin Ratio 1.3 (0.9-2) 11/05/23 Unknown Lipase 33 U/L (11-82) 11/05/23 Unknown HCG, Qual Negative (Negative) 11/05/23 Unknown Urine Color Dark Yellow 11/05/23 Unknown Urine Appearance Cloudy (Clear) A 11/05/23 Unknown Urine pH 5.5 (4.5-7.5) 11/05/23 Unknown Ur Specific [place] 1.027 (1.000-1.030) 11/05/23 Unknown Urine Protein Negative (Negative) 11/05/23 Unknown Urine Glucose (UA) Negative (Negative) 11/05/23 Unknown Urine Ketones Trace (Negative) H 11/05/23 Unknown Urine Blood Negative (Negative) 11/05/23 Unknown Urine Nitrite Negative (Negative) 11/05/23 Unknown Urine Bilirubin Negative (Negative) 11/05/23 Unknown Urine Urobilinogen Negative (Negative) 11/05/23 Unknown Ur Leukocyte Esterase Negative (Negative) 11/05/23 Unknown Urine WBC (Auto) 0-5 /hpf (0-5) 11/05/23 Unknown Urine RBC (Auto) 3-5 /hpf (0-2) H 11/05/23 Unknown U Hyaline Cast (Auto) 0-2 /lpf (0-2) 11/05/23 Unknown U Epithel Cells (Auto) 6-10 /hpf (0-2) H 11/05/23 Unknown Urine Bacteria (Auto) 2+ (None Seen) H 11/05/23 Unknown Impressions Abdomen/Pelvis CT 11/05/23 18:16 CT abd pelvis IV con only CLINICAL HISTORY: abd pain TECHNIQUE: Helical axial images of the abdomen and pelvis were obtained and displayed. Automated dose lowering techniques and/or adjustment according to patient size were utilized for this exam. This exam was performed with intravenous contrast. CT DOSE: 1408.89 mGy.cm COMPARISON: Comparison is made to CT chest 04/24/2020 FINDINGS: Lower chest: No acute abnormality. Liver: Unremarkable. No focal lesions are seen. Gallbladder and biliary tree: No calcified gallstones. Normal caliber wall. No intra- or extrahepatic biliary ductal dilation. Pancreas: Mild fat stranding is seen about the pancreatic tail. Spleen: Splenule is incidentally noted. Adrenals: Unremarkable. Kidneys and ureters: Unremarkable. Bladder: Unremarkable. Reproductive organs: Unremarkable. Bowel: Diverticulosis is seen without evidence of diverticulitis. Lymph nodes Retroperitoneal: Unremarkable. Pelvic: Unremarkable. Mesenteric: Unremarkable. Peritoneum: Fat stranding is seen about the pancreatic tail. No fluid collections. Vessels: Unremarkable. Abdominal wall: Unremarkable. Bones: Degenerative changes in the visualized spine. IMPRESSION: Mild fat stranding is seen about the pancreatic tail which may be reflective of mild pancreatitis. No peripancreatic fluid collection. ACT 112: Negative or not required by law. Electronically signed by: Michael Moody M.D. 11/05/2023 7:14 PM Code Status & VTE Plan Code Status Full code VTE Prophylaxis Plan VTE Prophylaxis will be ordered: Yes PG Care Time/CCT Total # of Minutes Spent Total Time Spent with Patient: Total time spent is greater than 50% in coordination of care (as documented) at patient's floor/unit and/or counseling patient: Coding Level of Care Code 16394 INT INP/OBS CARE 3/75MIN Diagnoses Abdominal pain R10.9 Abdominal location: unspecified location Acute inflammation of the pancreas K85.90 Morbid obesity E66.01 DM2 (diabetes mellitus, type 2) E11.9 Urinary tract infection N39.0 HTN (hypertension) I10 Hypertension type: unspecified GERD (gastroesophageal reflux disease) K21.9 Esophagitis presence: esophagitis presence not specified Migraine headache G43.909 Metabolic syndrome E88.81 (1) Abdominal pain Abdominal location: unspecified location Qualified Code(s): R10.9 - Unspecified abdominal pain (6) HTN (hypertension) Hypertension type: unspecified Qualified Code(s): I10 - Essential (primary) hypertension (7) GERD (gastroesophageal reflux disease) Esophagitis presence: esophagitis presence not specified Qualified Code(s): K21.9 - Gastro-esophageal reflux disease without esophagitis
[2023-11-05] MEDS: NSS + 20MEQ KCL 20 MEQ/1,000 ML BAG IV SCH (23:52)
[2023-11-05] MEDS: cefTRIAXone SODIUM 2,000 MG/50 ML BAG IV SCH (23:52)
[2023-11-06] MEDS: ALUMINUM/MAGNESIUM SUSP 30 ML UDC PO STA (00:03)
[2023-11-06] MEDS: FAMOTIDINE 20MG IV PUSH 20 MG/5 ML SYR IV STA (00:03)
[2023-11-06 06:14] LABS: Basophils # (auto) 0.09 K/uL (0.00-0.20); Eosinophils # (auto) 0.16 K/uL (0.00-0.50); Eosinophils % (auto) 1.8 %; Hematocrit (blood only) 35.5 % (37.0-47.0); Immature Granulocytes # (auto) 0.05 K/uL (0.01-0.20); Immature Granulocytes % (auto) 0.6 %; Lymphocytes # (auto) 1.77 K/uL (1.20-3.40); Lymphocytes % (auto) 19.9 %; Mean Corpuscular Hemoglobin 30.1 pg (25.0-34.0); Mean Corpuscular Hgb Conc 33.8 g/dL (32.0-36.0); Mean Platelet Volume 9.7 fL (9.4-12.4); Monocytes % (auto) 6.7 %; Neutrophils # (auto) 6.23 K/uL (1.40-6.50); Platelet Count 254 K/uL (130-400); RDW Coefficient of Variation 13.2 % (11.5-14.5); RDW Standard Deviation 43.2 fL (36.4-46.3); Red Blood Count 3.99 M/uL (4.20-5.40)
[2023-11-06 06:27] LABS: Albumin Level 3.9 gm/dl (3.4-5.0); BUN Creatinine Ratio 20.3 (10-20); Calcium 8.7 mg/dl (8.6-10.3); Creatinine Clr Calc Pharmacy 155.2 ml/min; Est GFR (African American) 124.7 ml/min; Est GFR (Non-African American) 107.6 ml/min; Magnesium 1.9 mg/dl (1.7-2.4); Phosphorus 4.2 mg/dl (2.5-4.9); Potassium 3.7 mmol/L (3.5-5.1)
[2023-11-06] MEDS: VERAPAMIL HCL 40 MG TAB PO SCH (07:50)
[2023-11-06] MEDS: PANTOprazole 40 MG in SYRINGE 0 ML IV SCH (10:01)
[2023-11-06] MEDS: ACETAMINOPHEN 325 MG TAB PO PRN (11:50)
--- NOTE | 2023-11-06 17:06 | Discharge Summary ---
Discharge Summary Date of Service November 06, 2023 Principal Dx & Hospital Course #1 = Principal Diagnosis (1) Acute inflammation of the pancreas: Presented with abdominal pain with burning from epigastrium to substernal area, bloating, and belching x2 days. - CT A/P on admission revealed "mild fat stranding is seen about the pancreatic tail which may be reflective of mild pancreatitis. No peripancreatic fluid collection." - Lipase normal at 33, making unclear the diagnosis of pancreatitis. - Suspect her symptoms are more likely related to medication side effect. > In setting of suspected but not confirmed pancreatitis, Ozempic held until PCP follow-up appointment. - H. pylori antigen and celiac disease panel - pending. > Will defer follow-up on these results to PCP in outpatient setting. - Patient well tolerated low fat diet. Recommend continuing low fat diet x 1 week, then advance as tolerated. - Recommend close PCP follow-up. If there is concern regarding EPI, could do trial of pancreatic enzymes as an outpatient. (2) Urinary tract infection: UA did not appear infected on admission, however ceftriaxone was given empirically x1 dose Urine culture preliminarily negative. No complaints of dysuria, frequency, urgency. Additional antibiotics on discharge were deferred at this time. Plan CODE STATUS: Full code Notes For Next Care Provider Patient presented with abdominal pain/burning from epigastrium to substernal area. CT of her abdomen and pelvis revealed some pancreatic inflammation. However, lipase was normal at 33 making the diagnosis of pancreatitis unclear. Symptoms resolved 11/05. In setting of suspected but not confirmed pancreatitis, hold Ozempic until follow-up appointment with PCP. Please follow-up on H. pylori and celiac disease panel results in outpatient setting. Medication Changes From Visit Ozempic held until PCP follow-up appointment. Admission HPI Per Admitting Provider The patient is a 48-year-old female with a past medical history including hypertension, GERD, migraine headache, fatty liver, diabetes mellitus type 2, morbid obesity, aneurysm of left internal carotid artery, osteoarthritis of hands bilaterally. She presents to the emergency department with a more acute worsening of her chronic abdominal discomfort, manifested by burning from her epigastric region substernally, and accompanied by abdominal bloating and burping. She reports her symptoms are worse when she eats, and improves on empty stomach. She also notes some urinary discomfort Admission Exam Per Admitting Provider The patient is awake, alert and oriented 3, well developed and well nourished, normocephalic and atraumatic, lying in bed and in no acute distress. HEENT--PERRL, EOMI, mucous membranes and oropharynx normal. Neck--supple. No JVD. No bruits. Thyroid normal, trachea midline, no adenopathy. Heart--normal S1 and S2. No murmurs, rubs or gallops. Lungs--clear bilaterally, no respiratory distress, no accessory muscle use. Abdomen--normal bowel sounds and soft. Nontender. Nondistended. Morbidly obese Extremities--No edema. Dermatologic--normal skin turgor, normal color, no abnormal lymph nodes, no rash. Neurologic--cranial nerves II through XII grossly intact. Rheumatologic--normal range of motion. Psychiatric--normal affect. Discharge Exam General: No acute distress, nondiaphoretic, well-developed, well-nourished. Skin: The skin was without rashes, erythema, edema, or bruising. Cardiac: Regular rate and rhythm without murmurs gallops or rubs. Pulm: Clear to auscultation bilaterally without wheezes, rales or rhonchi. No retractions or accessory muscle use. Abdominal: Positive bowel sounds x 4. Soft, nontender, without masses or organomegaly. No guarding or rebound tenderness. Neuro: A&O x3. No focal neurological deficits. Updated Medication List Medication Instructions Recorded Confirmed Type bgukobisjjy-[id number]-[id number] C-Mn 1 cap PO QAM 04/30/18 11/05/23 History capsule potassium gluconate 595 mg (99 mg) 595 mg PO QAM 08/05/19 11/05/23 History tablet lancets 33 gauge (OneTouch Delica #100 ea 04/26/20 10/25/23 Rx Lancets) blood sugar diagnostic (SkiipiTouch #180 ea 05/23/21 10/25/23 Rx Verio test strips) pen needle, diabetic 31 gauge x #100 ea 06/05/21 10/25/23 Rx 5/16" (1st Tier Unifine Pentips Plus) calcium 600 mg capsule 600 mg PO QAM 03/05/22 11/05/23 History cholecalciferol (vitamin D3) 100 300 mcg PO QAM 01/20/23 11/05/23 History mcg (4,000 unit) capsule metformin 1,000 mg tablet 1,000 mg PO QAM #90 tabs 08/12/23 11/05/23 Rx verapamil 40 mg tablet 40 mg PO QAM #30 tabs 08/26/23 11/05/23 Rx [place] 3 1 cap PO QAM 11/05/23 11/05/23 History semaglutide 1 mg/dose (4 mg/3 mL) 1 mg subcut WK 11/05/23 11/05/23 History subcutaneous pen injector (Ozempic) turmeric 1 cap PO QAM 11/05/23 11/05/23 History Hospital Stay Data Consultations 11/05/23 21:37 ED Decision to Admit Stat Diagnostic Imagining Performed Laboratory Results WBC 8.90 K/ul (4.8-10.8) 11/06/23 05:33 RBC 3.99 M/uL (4.20-5.40) L 11/06/23 05:33 Hgb 12.0 g/dl (12.0-16.0) 11/06/23 05:33 Hct 35.5 % (37.0-47.0) L 11/06/23 05:33 MCV 89.0 fL (80.0-100.0) 11/06/23 05:33 MCH 30.1 pg (25.0-34.0) 11/06/23 05:33 MCHC 33.8 g/dL (32.0-36.0) 11/06/23 05:33 RDW Std Deviation 43.2 fL (36.4-46.3) 11/06/23 05:33 RDW Coeff of Anand 13.2 % (11.5-14.5) 11/06/23 05:33 Plt Count 254 K/uL (130-400) 11/06/23 05:33 MPV 9.7 fL (9.4-12.4) 11/06/23 05:33 Immature Gran % (Auto) 0.6 % 11/06/23 05:33 Neut % (Auto) 70.0 % 11/06/23 05:33 Lymph % (Auto) 19.9 % 11/06/23 05:33 [place] % (Auto) 6.7 % 11/06/23 05:33 Eos % (Auto) 1.8 % 11/06/23 05:33 Baso % (Auto) 1.0 % 11/06/23 05:33 Neut # (Auto) 6.23 K/uL (1.40-6.50) 11/06/23 05:33 Lymph # (Auto) 1.77 K/uL (1.20-3.40) 11/06/23 05:33 [place] # (Auto) 0.60 K/uL (0.11-0.59) H 11/06/23 05:33 Eos # (Auto) 0.16 K/uL (0.00-0.50) 11/06/23 05:33 Baso # (Auto) 0.09 K/uL (0.00-0.20) 11/06/23 05:33 Immature Gran # (Auto) 0.05 K/uL (0.01-0.20) 11/06/23 05:33 Sodium 139 mmol/L (136-145) 11/06/23 05:33 Potassium 3.7 mmol/L (3.5-5.1) 11/06/23 05:33 Chloride 107 mmol/L (98-107) 11/06/23 05:33 Carbon Dioxide 25 mmol/L (21-32) 11/06/23 05:33 Anion Gap 7 (3-11) 11/06/23 05:33 BUN 12 mg/dl (6-23) 11/06/23 05:33 Creatinine 0.59 mg/dl (0.6-1.2) L 11/06/23 05:33 Est Cr Clr Drug Dosing 155.2 ml/min 11/06/23 05:33 Est GFR ( Amer) 124.7 ml/min 11/06/23 05:33 Est GFR (Non-Af Amer) 107.6 ml/min 11/06/23 05:33 BUN/Creatinine Ratio 20.3 (10-20) H 11/06/23 05:33 Glucose 99 mg/dl (70-99(Fasting)) 11/06/23 05:33 Calcium 8.7 mg/dl (8.6-10.3) 11/06/23 05:33 Phosphorus 4.2 mg/dl (2.5-4.9) 11/06/23 05:33 Magnesium 1.9 mg/dl (1.7-2.4) 11/06/23 05:33 Total Bilirubin 0.6 mg/dl (0.2-1.0) 11/05/23 Unknown AST TNP 11/05/23 Unknown ALT 12 U/L (7-52) 11/05/23 Unknown Alkaline Phosphatase 62 U/L (34-104) 11/05/23 Unknown Troponin I High Sens 2.5 pg/ml (0-14) 11/05/23 Unknown Total Protein 7.7 gm/dl (6.0-8.3) 11/05/23 Unknown Albumin 3.9 gm/dl (3.4-5.0) 11/06/23 05:33 Globulin 3.4 gm/dl (2.5-4.0) 11/05/23 Unknown Albumin/Globulin Ratio 1.3 (0.9-2) 11/05/23 Unknown Lipase 33 U/L (11-82) 11/05/23 Unknown HCG, Qual Negative (Negative) 11/05/23 Unknown Urine Color Dark Yellow 11/05/23 Unknown Urine Appearance Cloudy (Clear) A 11/05/23 Unknown Urine pH 5.5 (4.5-7.5) 11/05/23 Unknown Ur Specific [place] 1.027 (1.000-1.030) 11/05/23 Unknown Urine Protein Negative (Negative) 11/05/23 Unknown Urine Glucose (UA) Negative (Negative) 11/05/23 Unknown Urine Ketones Trace (Negative) H 11/05/23 Unknown Urine Blood Negative (Negative) 11/05/23 Unknown Urine Nitrite Negative (Negative) 11/05/23 Unknown Urine Bilirubin Negative (Negative) 11/05/23 Unknown Urine Urobilinogen Negative (Negative) 11/05/23 Unknown Ur Leukocyte Esterase Negative (Negative) 11/05/23 Unknown Urine WBC (Auto) 0-5 /hpf (0-5) 11/05/23 Unknown Urine RBC (Auto) 3-5 /hpf (0-2) H 11/05/23 Unknown U Hyaline Cast (Auto) 0-2 /lpf (0-2) 11/05/23 Unknown U Epithel Cells (Auto) 6-10 /hpf (0-2) H 11/05/23 Unknown Urine Bacteria (Auto) 2+ (None Seen) H 11/05/23 Unknown Stool Occult Bld Scrn Negative (Negative) 11/06/23 13:45 Impressions Abdomen/Pelvis CT 11/05/23 18:16 CT abd pelvis IV con only CLINICAL HISTORY: abd pain TECHNIQUE: Helical axial images of the abdomen and pelvis were obtained and displayed. Automated dose lowering techniques and/or adjustment according to patient size were utilized for this exam. This exam was performed with intravenous contrast. CT DOSE: 1408.89 mGy.cm COMPARISON: Comparison is made to CT chest 04/24/2020 FINDINGS: Lower chest: No acute abnormality. Liver: Unremarkable. No focal lesions are seen. Gallbladder and biliary tree: No calcified gallstones. Normal caliber wall. No intra- or extrahepatic biliary ductal dilation. Pancreas: Mild fat stranding is seen about the pancreatic tail. Spleen: Splenule is incidentally noted. Adrenals: Unremarkable. Kidneys and ureters: Unremarkable. Bladder: Unremarkable. Reproductive organs: Unremarkable. Bowel: Diverticulosis is seen without evidence of diverticulitis. Lymph nodes Retroperitoneal: Unremarkable. Pelvic: Unremarkable. Mesenteric: Unremarkable. Peritoneum: Fat stranding is seen about the pancreatic tail. No fluid collections. Vessels: Unremarkable. Abdominal wall: Unremarkable. Bones: Degenerative changes in the visualized spine. IMPRESSION: Mild fat stranding is seen about the pancreatic tail which may be reflective of mild pancreatitis. No peripancreatic fluid collection. ACT 112: Negative or not required by law. Electronically signed by: Michael Moody M.D. 11/05/2023 7:14 PM Pending Results Patient Have Any Pending Studies at Discharge: Yes Discharge Instructions Given to Patient (Per Discharging Provider) Mrs. Us, Williams were admitted to the hospital with pancreatic inflammation. You had a CT scan of your abdomen and pelvis which suggested possible mild pancreatitis. However, your pancreatic enzymes were normal. It is unclear what caused the inflammation of your pancreas. Upon discharge from the hospital: * Follow a low-fat diet for 1 week. Then advance as tolerated. * I recommend not taking Ozempic until you see your PCP and can have a further discussion about continuing this. > In suspected cases of pancreatitis, Ozempic should be held. * Follow-up with your PCP. Their office will call you at the beginning of the week with appointment details. Please return to the hospital if you experience any of the following: Fever of 100.4 F or higher, severe pain from your upper belly to your back, nausea vomiting, feeling dizzy or lightheaded, bruising on your belly or back, belly swelling and tenderness, fast heartbeat, shallow/fast breathing, difficulty breathing, chest pain, or passing out. It was a pleasure taking care of you while you were in the hospital, Angelita Bradford PA-C Total Time Total Time Spent Total Time Spent (In Minutes): Greater than 30 minutes spent completing this discharge process including direct patient care, medication reconciliation, documentation, review of labs and images, and coordination of care. Coding Level of Care Code 84597 INP/OBS DISCH >30 MIN Diagnoses Acute inflammation of the pancreas K85.90 Urinary tract infection N39.0
[2023-11-09 02:07] LABS: IgA Serum 193 mg/dL (47-310); Tis Trans IgA <1.0 U/mL
== END 2023-11-06 17:37 | disposition home or self-care (01) ==
LOC: 3E 14:42 → ED 14:42 → SUATTDRO 22:22 → 3E 22:55

== ENCOUNTER 2024-05-15 10:13 | Inpatient (IN) ==
--- NOTE | 2024-05-15 11:12 | Emergency Department Note ---
Impression & Plan Cat bite of left hand with infection, Elevated erythrocyte sedimentation rate, CRP elevated ED Provider Note NAME: TONG BOOTHE AGE: 48 SEX: F : 1975 ARRIVES VIA: Walk-In INFORMANT: Patient ED PROVIDER(S): Darrius Berry MD CHIEF COMPLAINT: Left hand cat bite infection, referred. PLAN: Disposition: Admit MEDICAL DECISION MAKING: The patient is a pleasant 48-year-old woman, RHD, with a past medical history of osteoarthritis, migraines, type 2 diabetes who presents to emergency department via walk-in referred by her PCP office for assessment of a left hand cat bite wound infection (by her own immunized house cat) that has been worsening since her emergency department visit yesterday despite starting Augmentin. Td was updated. The patient denies any fevers, chills, cough, congestion, GI or symptoms. She reports the redness and swelling on the back of her left hand has worsened. She is able to close her hand completely but reports some increased pain. On evaluation the patient is no distress, afebrile with blood pressure in the 150s/80s and vital signs otherwise stable. Her left hand demonstrates erythema warmth, edema and tenderness on the dorsum of the left carpal/metacarpal region with scattered punctate wounds of the area as well as several in the left forearm and right forearm which do not demonstrate infection at this time. Distal PMS is intact. She has full range of motion of the hand with development geologist without reports pain. There is no crepitus. There is subtle streaking proximally beyond the central area of erythema and edema. WBC within normal limits without neutrophilia or left shift. H/H and platelets within normal limits. ESR and CRP are mildly elevated at 41 and 1.1, respectively. Chemistry without metabolic acidosis. LFTs are unremarkable. Procalcitonin is undetectable. Plain film of the left hand was negative for fracture or foreign bodies. Soft tissue swelling is noted. There is no gas. Patient does agree with plan for admission for further management. While the patient has a listed allergy to Augmentin she reports she does tolerate this well and only had issues remotely when she "took a lot out of it". Given she has done well thus far with Augmentin IV Unasyn was ordered. Case was discussed with GAVI Edward PAC, with GAVI Garsia hospitalist who will evaluate the patient for admission. Triage Nursing notes reviewed and agree them. Prior/external medical records reviewed Vital Signs: reviewed Differential diagnosis: Cellulitis, abscess, MRSA infection, DVT, necrotizing fasciitis, dermatitis, drug eruption, allergic reaction, as well as other pathologies. ER treatment provided: See below. Diagnostics interpreted by me: Cardiac Monitoring: An order for continuous cardiac monitoring was placed and demonstrated normal sinus rhythm, 64 bpm. Laboratory studies: See below Imaging studies: See below Consultation(s): Case was discussed with GAVI Edward PAC, with GAVI Garsia hospitalist who will evaluate the patient for admission. HPI: The patient is a pleasant 48-year-old woman, RHD, with a past medical history of osteoarthritis, migraines, type 2 diabetes who presents to emergency department via walk-in referred by her PCP office for assessment of a left hand cat bite wound infection (by her own immunized house cat) that has been worsening since her emergency department visit yesterday despite starting Augmentin. Td was updated. The patient denies any fevers, chills, cough, congestion, GI or symptoms. She reports the redness and swelling on the back of her left hand has worsened. She is able to close her hand completely but reports some increased pain. ROS: See above HPI for pertinent positives & negatives. A total of 10 systems reviewed and were otherwise negative. VITALS:See Below PHYSICAL EXAMINATION: GENERAL: Awake, alert, well-appearing, in no distress HENT: Normocephalic, atraumatic. Oropharynx unremarkable. EYES: Normal conjunctiva. Sclera non-icteric. NECK: Supple. No nuchal rigidity. FROM. No JVD. RESPIRATORY: Clear to auscultation. CARDIAC: Regular rate, normal rhythm. Extremities warm and well perfused. Pulses equal. ABDOMEN: Soft, non-distended. No tenderness to palpation. No rebound or guarding. No masses. MUSCULOSKELETAL: Chest examination reveals no tenderness. The back is symmetrical on inspection without obvious abnormality. There is no CVA tenderness to palpation. Left hand demonstrates erythema warmth, edema and tenderness on the dorsum of the left carpal/metacarpal region with scattered punctate wounds of the area as well as several in the left forearm and right forearm which do not demonstrate infection at this time. Distal PMS is intact. She has full range of motion of the hand with development geologist without reports pain. There is no crepitus. There is subtle streaking proximally beyond the central area of erythema and edema. LOWER EXTREMITIES: Calves are equal size bilaterally and non-tender. No edema. No discoloration. NEURO: Normal sensorium. No sensory or motor deficits noted. SKIN: No jaundice noted. Darrius Berry MD Past Med/Surg History Problem List (Updated 05/16/24 @ 00:26 by Darrius Berry MD) CRP elevated (Acute) Elevated erythrocyte sedimentation rate (Acute) Cat bite of left hand with infection (Acute) Cat bite of multiple sites of hand and fingers (Acute) Coital headache Encounter for immunization Hair loss Acute inflammation of the pancreas HTN (hypertension) (Acute) GERD (gastroesophageal reflux disease) (Acute) Osteoarthritis of hands, bilateral Partial tear of rotator cuff Periorbital cellulitis of right eye Colon cancer screening Migraine headache (Acute) History of knee surgery History of laparoscopy With fulguration of oviducts History of arthroplasty of knee primary repair of knee ligament cruciate anterior Tension type headache Fatty liver DM2 (diabetes mellitus, type 2) Morbid obesity Metabolic syndrome Localized swelling, mass and lump, neck Exposure to confirmed case of COVID-19 Left knee pain Ruptured Bakers cyst Left knee DJD PMB (postmenopausal bleeding) Postmenopausal atrophic vaginitis Encounter for pre-operative examination Status post left knee replacement Encounter for examination following treatment at hospital Fatigue Thrush Aneurysm of left internal carotid artery pt states was told by [facility] neuro it did not require further f/u or intervention Cervical cord compression with myelopathy (Chronic) s/p surgical intervention x4, mild ROM limitation Medical History PCOS (polycystic ovarian syndrome) Unique anesthetic considerations present on preoperative anesthesia assessment PT REPORTS AFRAID OF GOING TO SLEEP (DOES NOT LIKE THE UNAWARENESS) AND AFRAID OF HAVING A SPINAL NO HX ANESTHESIA PROBLEMS Liver problem HX OF A FALL IN 2020 "I BRUISED IT", HX ELEVATED LIVER ENZYMES>no current issues Varicose veins of both lower extremities MOSTLY LEFT; ablation of varicose veins completed Diabetes NIDDM Migraines reason for verapamil History of recurrent UTIs Cervical disc disease Kidney stone REMOTE HX Surgical History History of total left knee replacement History of arthroscopy of left knee History of repair of ACL LEFT Hx of tubal ligation 1997 History of neck surgery Years: 2015, 2017, 2018, 2019 (total of 4 surgeries) HARDWARE MILD LIMITATION WITH MOVEMENT TO RIGHT GETS NECK CRAMP NEAR THROAT WITH YAWNING History of cataract extraction 2017, BOTH History of tonsillectomy History of appendectomy Family History Father Diabetes Grandfather Myocardial infarction Denies family history of Ovarian cancer Prostate cancer Breast cancer Lung cancer Colorectal cancer Hypertension Social History Smoking Status: Former smoker Tobacco Type: Cigarettes Age Started Using Tobacco: 19; packs per day: 1; Cigarettes Per Day: just an occasional if out with friends; Second Hand Exposure: No; Do You Dip or Chew Tobacco: No; Hx Alcohol Use: Yes Alcohol type: beer, wine and hard liquor Hx Substance Use: No Preferred Language: Macedonian Communication Ability: Effective Damage Assessor Required: No Beliefs That Will Affect Care: None marital status: Current Living Situation: Spouse Current Living Situation Comment: GRANDAUGHTERS STAY FREQUENTLY current occupational status: other 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 How many Children do You have: 1 Other Information That Helps Us Care for You: No Feels Safe at Home: Yes Safety Concerns: Feels Safe At This Time Childhood Exposure to Second-Hand Smoke: Yes Diet: regular caffeine: Yes (coffee) Dental Care, Regularly: No Physical Activity Frequency: 1-2 Times per Week Seatbelt Use: always Sunscreen Use: Yes (depends ) Assistive Devices: None Allergies Allergies Allergy/AdvReac Type Severity Reaction Status Date / Time latex Allergy Mild rash Verified 05/15/24 12:05 amoxicillin [From Augmentin] AdvReac Intermediate Rash Verified 05/15/24 12:05 clavulanic acid AdvReac Intermediate Rash Verified 05/15/24 12:05 [From Augmentin] Home Meds Home Medications Medication Instructions Recorded Confirmed [id number] C-Mn 1 cap PO QAM 04/30/18 05/15/24 capsule potassium gluconate 595 mg (99 mg) 595 mg PO QAM 08/05/19 05/15/24 tablet omega-3 fatty acids 1,000 mg 1,000 mg PO DAILY 11/08/23 05/15/24 capsule turmeric 400 mg capsule 400 mg PO DAILY 11/08/23 05/15/24 calcium carbonate (Calcium 600) 600 mg PO DAILY 05/15/24 05/15/24 cholecalciferol (vitamin D3) 50 50 mcg PO DAILY 05/15/24 05/15/24 mcg (2,000 unit) tablet (Vitamin D3) ferrous sulfate 325 mg (65 mg 325 mg PO DAILY 05/15/24 05/15/24 iron) tablet (iron) Previous Rx's Medication Instructions Recorded lancets 33 gauge (OneTouch Delica #100 ea 04/26/20 Lancets) blood sugar diagnostic (OneTouch #180 ea 05/23/21 Verio test strips) pen needle, diabetic 31 gauge x #100 ea 06/05/2109/01" (1st Tier Unifine Pentips Plus) metformin 1,000 mg tablet 1,000 mg PO QAM #90 tabs 08/12/23 semaglutide 1 mg/dose (4 mg/3 mL) 1 mg (0.75 mL) subcut WK #3 mL 02/28/24 subcutaneous pen injector (Ozempic) verapamil 120 mg 24 hr 120 mg PO DAILY #30 caps 03/28/24 capsule,extended release Results & Data (ED) Vital Signs Vital Signs - 24 hr 05/15/24 10:14 05/15/24 10:39 05/15/24 11:15 Temperature 36.6 C Temperature Source Temporal Artery Scan Pulse Rate 63 66 Pulse Rate [Finger] 88 Respiratory Rate 18 20 Respiratory Effort / Characteristics Non-Labored Spontaneous Respiratory Depth Normal Respiratory Pattern Regular Blood Pressure 169/109 H Blood Pressure [Right Arm] 157/84 H Blood Pressure Mean 129 Blood Pressure Mean [Right Arm] 108 Pulse Oximetry 99 98 100 Oxygen Delivery Method Room Air Room Air Sepsis Recent Fever Within 48 Hours No Sepsis New/Unexplained Change in Mental Status N/A Sepsis Action Taken by Nursing No Action Required 05/15/24 11:24 05/15/24 12:14 Temperature Temperature Source Pulse Rate 64 Pulse Rate [Finger] 61 Respiratory Rate 18 Respiratory Effort / Characteristics Non-Labored Spontaneous Respiratory Depth Respiratory Pattern Blood Pressure Blood Pressure [Right Arm] 150/85 H Blood Pressure Mean Blood Pressure Mean [Right Arm] 106 Pulse Oximetry 99 Oxygen Delivery Method Room Air Sepsis Recent Fever Within 48 Hours Sepsis New/Unexplained Change in Mental Status Sepsis Action Taken by Nursing Laboratory Data Attestation: I reviewed the patient's lab results. 05/15/24 10:37 05/15/24 10:37 Lab Results 05/15/24 Range/Units 10:37 WBC 9.34 (4.8-10.8) K/ul RBC 4.24 (4.20-5.40) M/uL Hgb 12.9 (12.0-16.0) g/dl Hct 37.7 (37.0-47.0) % MCV 88.9 (80.0-100.0) fL MCH 30.4 (25.0-34.0) pg MCHC 34.2 (32.0-36.0) g/dL RDW Std Deviation 42.6 (36.4-46.3) fL RDW Coeff of Anand 13.1 (11.5-14.5) % Plt Count 316 (130-400) K/uL MPV 9.9 (9.4-12.4) fL Immature Gran % (Auto) 0.4 % Neut % (Auto) 68.4 % Lymph % (Auto) 23.9 % [place] % (Auto) 5.1 % Eos % (Auto) 1.1 % Baso % (Auto) 1.1 % Neut # (Auto) 6.39 (1.40-6.50) K/uL Lymph # (Auto) 2.23 (1.20-3.40) K/uL [place] # (Auto) 0.48 (0.11-0.59) K/uL Eos # (Auto) 0.10 (0.00-0.50) K/uL Baso # (Auto) 0.10 (0.00-0.20) K/uL Immature Gran # (Auto) 0.04 (0.01-0.20) K/uL ESR 41 H (0-20) mm/hr Sodium 140 (136-145) mmol/L Potassium 3.7 (3.5-5.1) mmol/L Chloride 106 (98-107) mmol/L Carbon Dioxide 27 (21-32) mmol/L Anion Gap 7 (3-11) BUN 14 (6-23) mg/dl Creatinine 0.75 (0.6-1.2) mg/dl Est Cr Clr Drug Dosing 121.4 ml/min eGFR 97.54 BUN/Creatinine Ratio 18.7 (10-20) Glucose 132 H (70-99(Fasting)) mg/dl Calcium 9.4 (8.6-10.3) mg/dl Total Bilirubin 0.5 (0.2-1.0) mg/dl AST 19 (13-39) U/L ALT 10 (7-52) U/L Alkaline Phosphatase 80 (34-104) U/L C-Reactive Protein 1.11 H (0-0.5) mg/dl Total Protein 7.5 (6.0-8.3) gm/dl Albumin 4.4 (3.4-5.0) gm/dl Globulin 3.1 (2.5-4.0) gm/dl Albumin/Globulin Ratio 1.4 (0.9-2) Procalcitonin < 0.02 (0-0.5) ng/ml Administered Medications Enoxaparin Sodium (Enoxaparin Inj 40 Mg/0.4 Ml Syr) 40 mg SQ Q24H ROVERTO Stop: 06/14/24 20:59 Last Admin: 05/15/24 19:33 Dose: 40 mg Documented By: NELSON Ampicillin Sodium/Sulbactam Sodium (Unasyn) 3,000 mg in 100 mls @ 200 mls/hr IV Q6H ROVERTO Stop: 05/22/24 17:59 Last Infusion: 05/15/24 23:15 Dose: Infused Documented By: Admin: 05/15/24 22:38 Dose: 200 mls/hr Documented By: Infusion: 05/15/24 18:51 Dose: Infused Documented By: Admin: 05/15/24 18:20 Dose: 200 mls/hr Documented By: SUMMER Insulin Aspart (Insulin Aspart Per Unit Charge) 0 units SC ACHS ROVERTO Stop: 06/14/24 16:29 Last Admin: 05/15/24 20:52 Dose: Not Given Documented By: Admin: 05/15/24 18:16 Dose: Not Given Documented By: SUMMER Discontinued Medications Sodium Chloride (Nss) 1,000 mls @ 500 mls/hr IV .Q2H ONE Stop: 05/15/24 13:00 Last Infusion: 05/15/24 15:13 Dose: Infused Documented By: Admin: 05/15/24 11:21 Dose: 500 mls/hr Documented By: CARLOS Ampicillin Sodium/Sulbactam Sodium (Unasyn) 3,000 mg in 100 mls @ 200 mls/hr IV NOW STA Stop: 05/15/24 12:08 Last Infusion: 05/15/24 13:38 Dose: Infused Documented By: Admin: 05/15/24 12:22 Dose: 200 mls/hr Documented By: CARLOS Ketorolac Tromethamine (Ketorolac Tromethamine 15 Mg/Ml Vial) 15 mg IV NOW STA Stop: 05/15/24 11:02 Last Admin: 05/15/24 11:21 Dose: 15 mg Documented By: CARLOS Imaging Data Radiologist's Impression: Hand X-Ray 05/15/24 10:56 XR hand LT min 3V routine CLINICAL HISTORY: cat bite infection, swelling COMPARISON: Left hand radiographs August 13, 2023. FINDINGS: Alignment of the left hand is anatomic. There are no fractures. No bony erosion is identified. There are no osseous lesions. Mild degenerative changes within several articulations of the left hand and wrist are present. Distal left radius and ulna are intact. Carpal bones are intact. Dorsal hand soft tissue swelling is present. IMPRESSION: 1. No acute osseous abnormality within the left hand. 2. Dorsal hand soft tissue swelling. ACT 112: Negative or not required by law. Electronically signed by: Armaan Medellin M.D. 05/15/2024 11:39 AM Discharge Plan Visit Data Chief Complaint: Animal Bite Stated Complaint: CAT BITE ON TOP OF LT HAND, EDEMA ED Provider: Darrius Berry Discharge Problem: Cat bite of left hand with infection, Elevated erythrocyte sedimentation rate, CRP elevated Patient Disposition: Admitted As Inpatient Discharge Instructions Interventions: ED Discharge Assessment Last Done: 05/15/24 15:28 Discharge Problem: Cat bite of left hand with infection Qualifiers: Encounter type: initial encounter Qualified Code(s): S61.452A - Open bite of left hand, initial encounter
[2024-05-15] MEDS: KETOROLAC TROMETHAMINE 15 MG/ML VIAL IV STA (11:21)
[2024-05-15] MEDS: SODIUM CHLORIDE 0.9% 1,000 ML IV ONE (11:21)
[2024-05-15 11:29] LABS: Basophils % (auto) 1.1 %; Eosinophils % (auto) 1.1 %; Hematocrit (blood only) 37.7 % (37.0-47.0); Hemoglobin 12.9 g/dl (12.0-16.0); Immature Granulocytes # (auto) 0.04 K/uL (0.01-0.20); Immature Granulocytes % (auto) 0.4 %; Lymphocytes # (auto) 2.23 K/uL (1.20-3.40); Lymphocytes % (auto) 23.9 %; Mean Corpuscular Hemoglobin 30.4 pg (25.0-34.0); Mean Corpuscular Hgb Conc 34.2 g/dL (32.0-36.0); Mean Corpuscular Volume 88.9 fL (80.0-100.0); Mean Platelet Volume 9.9 fL (9.4-12.4); Monocytes # (auto) 0.48 K/uL (0.11-0.59); Monocytes % (auto) 5.1 %; Neutrophils # (auto) 6.39 K/uL (1.40-6.50); Neutrophils % (auto) 68.4 %; Platelet Count 316 K/uL (130-400); RDW Coefficient of Variation 13.1 % (11.5-14.5); RDW Standard Deviation 42.6 fL (36.4-46.3); Red Blood Count 4.24 M/uL (4.20-5.40); White Blood Count 9.34 K/ul (4.8-10.8)
[2024-05-15 11:37] LABS: Albumin Globulin Ratio 1.4 (0.9-2); Albumin Level 4.4 gm/dl (3.4-5.0); BUN Creatinine Ratio 18.7 (10-20); Bilirubin,Total 0.5 mg/dl (0.2-1.0); C Reactive Protein 1.11 mg/dl (0-0.5); Calcium 9.4 mg/dl (8.6-10.3); Creatinine Clr Calc Pharmacy 121.4 ml/min; Globulin 3.1 gm/dl (2.5-4.0); Potassium 3.7 mmol/L (3.5-5.1); Total Protein 7.5 gm/dl (6.0-8.3)
--- NOTE | 2024-05-15 11:41 | XRay Report ---
XR hand LT min 3V routine CLINICAL HISTORY: cat bite infection, swelling COMPARISON: Left hand radiographs August 13, 2023. FINDINGS: Alignment of the left hand is anatomic. There are no fractures. No bony erosion is identif ied. There are no osseous lesions. Mild degenerative changes within several articulations of the left hand and wrist are present. Distal left radius and ulna are intact. Carpal bones are intact. Dorsal hand soft tissue swelling is present. IMPRESSION: 1. No acute osseous abnormality within the left hand. 2. Dorsal hand soft tissue swelling. ACT 112: Negative or not required by law. Electronically signed by: Armaan Medellin M.D. 05/15/2024 11:39 AM
--- NOTE | 2024-05-15 12:11 | History & Physical Report ---
Date of Service May 15, 2024 Assessment & Plan (1) Cat bite of left hand with infection: (2) DM2 (diabetes mellitus, type 2): (3) HTN (hypertension): Ana Cagle is a pleasant 48-year-old female with PMH of T2DM, metabolic syndrome, tension type headaches, GERD, HTN, cervical cord compression, and thrush. She presented on 05/15 at the behest of her PCP for worsening redness and swelling from her recent cat bite. Patient was originally bit by her indoor house cat who got out on Saturday 05/13; bite occurred around 6 PM. Scratching and biting occurred on both of her hands and wrists. Patient then went to the ED on Wednesday and was started on Augmentin (per patient, she was on antibiotics within 12h of the bite). #Cat bite of left hand with infection Worsening infection of her left hand after cat bite on Wednesday evening 05/13 Originally came to the ED on 05/14 and started on Augmentin Left hand x-ray on 01/13 revealed no acute osseous abnormalities No leukocytosis; negative procalcitonin; afebrile CRP elevated at 1.11 on arrival; trend CRP Unasyn 3000 mg IV q6h Acetaminophen and Toradol as needed for pain/fever Elevate left upper extremity Orthopedic consult appreciated #Type 2 diabetes mellitus Last A1c at 7.9% on 02/11/2024 Hold metformin Lantus 5 u QAM while inpatient Loose SSI with target BSG range 110-150mg/dL, CF 35, carb ratio 12 T2DM diet BSG ACHS Adjust regimen as needed #Hypertension Continue verapamil Disposition: Admit to [facility] Full code T2DM VTE PPx: Lovenox 40 mg SQ q24h History of Present Illness Chief Complaint: Worsening cat bite, left hand infection Primary Care Provider: Romi Albert MD Tsering is a pleasant 48-year-old female with PMH of T2DM, metabolic syndrome, tension type headaches, GERD, HTN, cervical cord compression, and thrush. She presented on 05/15 at the behest of her PCP for worsening redness and swelling from her recent cat bite. Patient was originally bit by her indoor house cat who got out on Saturday 05/13; bite occurred around 6 PM. Scratching and biting occurred on both of her hands and wrists. Patient then went to the ED on Wednesday and was started on Augmentin (per patient, she was on antibiotics within 12h of the bite). She also reports that she got her tetanus updated at that time. Patient is right-hand dominant. She denies any purulent drainage from the scratches/bite booker. No fevers. No loss of function in her hands; she reports she still appeared to grasp objects and squeeze. Patient took her regular morning medicine today; no recent change in medications. She has not been taking anything for the pain. She rates the pain in her left hand 3/10 at present; squeezing exacerbates the pain. She reports she does have an allergy to penicillins. In the past she developed hives when she was on her second course of amoxicillin, and was told that she should avoid "taking too much" amoxicillin. No prior history of anaphylaxis or throat closure. Patient reports it is okay for her to take NSAIDs. Patient endorses occasional smoking/tobacco cigarettes, as well as alcohol use. No prior history of alcohol withdrawal. Patient is mildly hypertensive at 157/84 time admission; vitals otherwise stable. ED course: NSS 1000 mL IV Toradol 15 mg IV Unasyn 3000 mg IV ROS: Patient endorses erythema/swelling on the dorsal aspect of the left hand, mild left hand pain/tightness, and dry cough. Patient denies fever, chills, night sweats, dizziness, lightheadedness, headache, changes in vision, chest pain, chest palpitations, pleuritic CP, SOB, abdominal pain, N/V/D, changes in urinary or bowel habits, or numbness or tingling in the upper extremities. Allergies Allergy/AdvReac Type Severity Reaction Status Date / Time latex Allergy Mild rash Verified 05/15/24 12:05 amoxicillin [From Augmentin] AdvReac Intermediate Rash Verified 05/15/24 12:05 clavulanic acid AdvReac Intermediate Rash Verified 05/15/24 12:05 [From Augmentin] Home Medications Medication Instructions Recorded Confirmed Type [id number] C-Mn 1 cap PO QAM 04/30/18 05/15/24 History capsule potassium gluconate 595 mg (99 mg) 595 mg PO QAM 08/05/19 05/15/24 History tablet lancets 33 gauge (OneTouch Delica #100 ea 04/26/20 05/15/24 Rx Lancets) blood sugar diagnostic (Home Dialysis Plus #180 ea 05/23/21 05/15/24 Rx Verio test strips) pen needle, diabetic 31 gauge x #100 ea 06/05/21 05/15/24 Rx 5/16" (1st Tier Unifine Pentips Plus) metformin 1,000 mg tablet 1,000 mg PO QAM #90 tabs 08/12/23 05/15/24 Rx omega-3 fatty acids 1,000 mg 1,000 mg PO DAILY 11/08/23 05/15/24 History capsule turmeric 400 mg capsule 400 mg PO DAILY 11/08/23 05/15/24 History semaglutide 1 mg/dose (4 mg/3 mL) 1 mg (0.75 mL) subcut WK #3 mL 02/28/24 05/15/24 Rx subcutaneous pen injector (Ozempic) verapamil 120 mg 24 hr 120 mg PO DAILY #30 caps 03/28/24 05/15/24 Rx capsule,extended release calcium carbonate (Calcium 600) 600 mg PO DAILY 05/15/24 05/15/24 History cholecalciferol (vitamin D3) 50 50 mcg PO DAILY 05/15/24 05/15/24 History mcg (2,000 unit) tablet (Vitamin D3) ferrous sulfate 325 mg (65 mg 325 mg PO DAILY 05/15/24 05/15/24 History iron) tablet (iron) Past Med/Surg History Problem List (Updated 05/16/24 @ 00:26 by Darrius Berry MD) CRP elevated (Acute) Elevated erythrocyte sedimentation rate (Acute) Cat bite of left hand with infection (Acute) Cat bite of multiple sites of hand and fingers (Acute) Coital headache Encounter for immunization Hair loss Acute inflammation of the pancreas HTN (hypertension) (Acute) GERD (gastroesophageal reflux disease) (Acute) Osteoarthritis of hands, bilateral Partial tear of rotator cuff Periorbital cellulitis of right eye Colon cancer screening Migraine headache (Acute) History of knee surgery History of laparoscopy With fulguration of oviducts History of arthroplasty of knee primary repair of knee ligament cruciate anterior Tension type headache Fatty liver DM2 (diabetes mellitus, type 2) Morbid obesity Metabolic syndrome Localized swelling, mass and lump, neck Exposure to confirmed case of COVID-19 Left knee pain Ruptured Bakers cyst Left knee DJD PMB (postmenopausal bleeding) Postmenopausal atrophic vaginitis Encounter for pre-operative examination Status post left knee replacement Encounter for examination following treatment at hospital Fatigue Thrush Aneurysm of left internal carotid artery pt states was told by [facility] neuro it did not require further f/u or intervention Cervical cord compression with myelopathy (Chronic) s/p surgical intervention x4, mild ROM limitation Medical History PCOS (polycystic ovarian syndrome) Unique anesthetic considerations present on preoperative anesthesia assessment PT REPORTS AFRAID OF GOING TO SLEEP (DOES NOT LIKE THE UNAWARENESS) AND AFRAID OF HAVING A SPINAL NO HX ANESTHESIA PROBLEMS Liver problem HX OF A FALL IN 2020 "I BRUISED IT", HX ELEVATED LIVER ENZYMES>no current issues Varicose veins of both lower extremities MOSTLY LEFT; ablation of varicose veins completed Diabetes NIDDM Migraines reason for verapamil History of recurrent UTIs Cervical disc disease Kidney stone REMOTE HX Surgical History History of total left knee replacement History of arthroscopy of left knee History of repair of ACL LEFT Hx of tubal ligation 1996 History of neck surgery Years: 2016, 2017, 2018, 2019 (total of 4 surgeries) HARDWARE MILD LIMITATION WITH MOVEMENT TO RIGHT GETS NECK CRAMP NEAR THROAT WITH YAWNING History of cataract extraction 2017, BOTH History of tonsillectomy History of appendectomy Family History Father Diabetes Grandfather Myocardial infarction Denies family history of Ovarian cancer Prostate cancer Breast cancer Lung cancer Colorectal cancer Hypertension Social History Smoking Status: Former smoker Tobacco Type: Cigarettes Age Started Using Tobacco: 19; packs per day: 1; Cigarettes Per Day: just an occasional if out with friends; Second Hand Exposure: No; Do You Dip or Chew Tobacco: No; Hx Alcohol Use: Yes Alcohol type: beer, wine and hard liquor Hx Substance Use: No Preferred Language: [place] Communication Ability: Effective Space Sciences Director Required: No Beliefs That Will Affect Care: None marital status: Current Living Situation: Spouse Current Living Situation Comment: GRANDAUGHTERS STAY FREQUENTLY current occupational status: other 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 How many Children do You have: 1 Other Information That Helps Us Care for You: No Feels Safe at Home: Yes Safety Concerns: Feels Safe At This Time Childhood Exposure to Second-Hand Smoke: Yes Diet: regular caffeine: Yes (coffee) Dental Care, Regularly: No Physical Activity Frequency: 1-2 Times per Week Seatbelt Use: always Sunscreen Use: Yes (depends ) Assistive Devices: None Review of Systems 2 Review of Systems: See HPI above Physical Exam 2 Physical Exam: General: no acute distress; pleasant affect; non-toxic appearing; cooperative; SpO2 99% on RA HEENT: normocephalic, atraumatic; no scleral icterus; PERRLA; vision and hearing grossly intact Neck: supple; trachea midline Skin: warm, dry without signs of tenting; no cyanosis Left hand: Erythematous and swollen on the dorsal aspect of the left hand with multiple superficial scratches/lesions noted; see photo below; no signs of purulent drainage; potentially some streaking of the erythema of the dorsal aspect of her arm CV: chest wall NTP; RRR; S1/S2 normal; no murmurs/rubs/gallops; pulses intact and symmetric at radial, DP, and PT Lungs: no acute respiratory distress; symmetrical chest wall expansion; clear breath sounds across all lung eldridge w/o adventitious sounds; no wheezing ABD: Soft, NTP; BS present; no rebound/guarding; no distention MSK: no tics or fasciculations; no edema noted in the LEs b/l, nonerythematous; 3/5 executive vice president and chief operating officer strength in the left hand when compared to 5/5 in the right hand; patient does demonstrate the ability to individually bend her left second and third digits when isolating DIP and PIP joints Neuro: A&Ox3; normal mood and affect; fluent speech; no focal deficits; sensation intact and symmetric in the upper extremities bilaterally Results & Data Results & Data Vital Signs (Past 12 Hours) Vital Signs Temp Pulse Pulse Resp BP BP Pulse Ox 05/15/24 11:24 64 05/15/24 11:15 66 100 05/15/24 10:39 88 20 157/84 H 98 05/15/24 10:14 36.6 C 63 18 169/109 H 99 O2 Del Method 05/15/24 11:24 05/15/24 11:15 Room Air 05/15/24 10:39 Room Air 05/15/24 10:14 Laboratory Results Abnormal lab results 05/15/24 Range/Units 10:37 ESR 41 H (0-20) mm/hr Glucose 132 H (70-99(Fasting)) mg/dl C-Reactive Protein 1.11 H (0-0.5) mg/dl Diagnostic Findings Hand X-Ray 05/15/24 10:56 XR hand LT min 3V routine CLINICAL HISTORY: cat bite infection, swelling COMPARISON: Left hand radiographs August 13, 2023. FINDINGS: Alignment of the left hand is anatomic. There are no fractures. No bony erosion is identified. There are no osseous lesions. Mild degenerative changes within several articulations of the left hand and wrist are present. Distal left radius and ulna are intact. Carpal bones are intact. Dorsal hand soft tissue swelling is present. IMPRESSION: 1. No acute osseous abnormality within the left hand. 2. Dorsal hand soft tissue swelling. ACT 112: Negative or not required by law. Electronically signed by: Armaan Medellin M.D. 05/15/2024 11:39 AM Code Status & VTE Plan Code Status Full code VTE Prophylaxis Plan VTE Prophylaxis will be ordered: Yes Supervising Physician Co-Signing Physician Notes I personally saw and examined the patient. I independently reviewed the labs, imaging, problem list, medication list, past medical history and family history. I verified all hogue points and agree with Sukumar Britt PA-C with the following exceptions and/or additions: 48-year-old female presents to the ER with cat scratches and bites and worsening erythema and swelling of her left dorsal hand as comes in the picture above tracking down to her wrist despite taking Augmentin. O/E Erythema and swelling over the second and third metacarpophalangeal joints on the dorsal aspect of the left hand tracking to her wrist A/P Left hand cellulitis - consider orthopedics, IV Unasyn, elevate left upper extremity PG Care Time/CCT Total # of Minutes Spent Total Time Spent with Patient: Total time spent is greater than 50% in coordination of care (as documented) at patient's floor/unit and/or counseling patient: Coding [place] [address] INT INP/OBS CARE 3/75MIN Patient Type Established Medical Decision Making High Complexity Diagnoses Cat bite of left hand with infection S61.452A; L08.9; W55.01XA DM2 (diabetes mellitus, type 2) E11.9 HTN (hypertension) I10 Hypertension type: unspecified (3) HTN (hypertension) Hypertension type: unspecified Qualified Code(s): I10 - Essential (primary) hypertension
[2024-05-15] MEDS: AMPICILLIN/SULBACTAM SOD 3,000 MG/100 ML BAG IV STA (12:22)
[2024-05-15] MEDS ORDERED: MELATONIN 3 MG TAB PO PRN (15:28)
[2024-05-15] MEDS ORDERED: DEXTROSE 50% 50 ML SYRINGE IV PRN (15:28)
[2024-05-15] MEDS ORDERED: GLUCOSE 10 TAB/TUBE PO PRN (15:28)
[2024-05-15] MEDS ORDERED: ONDANSETRON INJ 2 MG/ML 2 ML VIAL IV PRN (15:28)
[2024-05-15] MEDS ORDERED: GLUCOSE 40% GEL 15 GM TUBE PO PRN (15:28)
[2024-05-15] MEDS ORDERED: CARBOHYDRATES FOR HYPOGLYCEMIA PO PRN (15:28)
[2024-05-15] MEDS ORDERED: GLUCAGON FOR INJ 1 MG VIAL SQ PRN (15:28)
--- NOTE | 2024-05-15 16:41 | Orthopedic Consultation ---
Date of Service May 15, 2024 History of Present Illness Reason for Consultation: Cat bite to left hand. Requesting Physician: . Attending Physician: Daryl Garsia MD 48-year-old female with PMH of T2DM, [id number], she presented on 05/15 at the behest of her PCP for worsening redness and swelling from her recent cat bite. Patient was originally bit by her indoor house cat who got out on Saturday 05/13; bite occurred around 6 PM. Scratching and biting occurred on both of her hands and wrists. Patient then went to the ED on Wednesday morning and was started on Augmentin (per patient, she was on antibiotics within 12h of the bite). She also reports that she got her tetanus updated at that time. She denies any purulent drainage from the scratches/bite booker. No fevers. No loss of function in her hands; she reports she still appeared to grasp objects and squeeze. Patient took her regular morning medicine today; no recent change in medications. She has not been taking anything for the pain. She rates the pain in her left hand 3/10 at present; squeezing exacerbates the pain. She reports she does have an allergy to penicillins. In the past she developed hives when she was on her second course of amoxicillin, and was told that she should avoid "taking too much" amoxicillin. Patient seen in the emergency room at 4:45 PM, awake alert and comfortable. She notes a definite improvement of the left hand since returning to the emergency room, she can now flex and extend the hand with less pain. She denies any distal symptoms in terms of numbness in the index or long finger left hand. Exam reveals the patient to have multiple scratches on both hands, bites were only present around the left second MCP joint region. She has full flexion of the IP joints with some slight pain in this region but no fluctuance or drainage noted. Right hand scratches were unremarkable. Left hand LT min 3V routine May 15, 2024 CLINICAL HISTORY: cat bite infection, swelling COMPARISON: Left hand radiographs August 13, 2023. FINDINGS: Alignment of the left hand is anatomic. There are no fractures. No bony erosion is identified. There are no osseous lesions. Mild degenerative changes within several articulations of the left hand and wrist are present. Distal left radius and ulna are intact. Carpal bones are intact. Dorsal hand soft tissue swelling is present. IMPRESSION: 1. No acute osseous abnormality within the left hand. 2. Dorsal hand soft tissue swelling. Left hand radiographs taken today on 05/15 are unremarkable for any evidence of fracture, there is some limited dorsal swelling. Impression: Status post combination of scratches in both hands, left hand dorsal cat bite in the second and third MCP region, notable improvement with return to emergency room and change in antibiotics. Plan: I discussed with patient the significance of the cat bite, of note is that she has had a definite improvement of her symptoms and is certainly noting a clinical improvement with the change in medications. My recommendations are for the patient to be n.p.o. after midnight, I will reexamine the patient in the morning and if she is improving at that point, potential discharge to home with different antibiotics versus operative intervention with irrigation and debridement. Patient was in agreement with this plan. Allergies Allergy/AdvReac Type Severity Reaction Status Date / Time latex Allergy Mild rash Verified 05/15/24 12:05 amoxicillin [From Augmentin] AdvReac Intermediate Rash Verified 05/15/24 12:05 clavulanic acid AdvReac Intermediate Rash Verified 05/15/24 12:05 [From Augmentin] Home Medications Medication Instructions Recorded Confirmed Type [id number]-[id number] C-Mn 1 cap PO QAM 04/30/18 05/15/24 History capsule potassium gluconate 595 mg (99 mg) 595 mg PO QAM 08/05/19 05/15/24 History tablet lancets 33 gauge (OneTouch Delica #100 ea 04/26/20 05/15/24 Rx Lancets) blood sugar diagnostic (OneTouch #180 ea 05/23/21 05/15/24 Rx Verio test strips) pen needle, diabetic 31 gauge x #100 ea 06/05/21 05/15/24 Rx 5/16" (1st Tier Unifine Pentips Plus) metformin 1,000 mg tablet 1,000 mg PO QAM #90 tabs 08/12/23 05/15/24 Rx omega-3 fatty acids 1,000 mg 1,000 mg PO DAILY 11/08/23 05/15/24 History capsule turmeric 400 mg capsule 400 mg PO DAILY 11/08/23 05/15/24 History semaglutide 1 mg/dose (4 mg/3 mL) 1 mg (0.75 mL) subcut WK #3 mL 02/28/24 05/15/24 Rx subcutaneous pen injector (Ozempic) verapamil 120 mg 24 hr 120 mg PO DAILY #30 caps 03/28/24 05/15/24 Rx capsule,extended release calcium carbonate (Calcium 600) 600 mg PO DAILY 05/15/24 05/15/24 History cholecalciferol (vitamin D3) 50 50 mcg PO DAILY 05/15/24 05/15/24 History mcg (2,000 unit) tablet (Vitamin D3) ferrous sulfate 325 mg (65 mg 325 mg PO DAILY 05/15/24 05/15/24 History iron) tablet (iron) Past Med/Surg History Problem List (Updated 05/16/24 @ 00:26 by Darrius Berry MD) CRP elevated (Acute) Elevated erythrocyte sedimentation rate (Acute) Cat bite of left hand with infection (Acute) Cat bite of multiple sites of hand and fingers (Acute) Coital headache Encounter for immunization Hair loss Acute inflammation of the pancreas HTN (hypertension) (Acute) GERD (gastroesophageal reflux disease) (Acute) Osteoarthritis of hands, bilateral Partial tear of rotator cuff Periorbital cellulitis of right eye Colon cancer screening Migraine headache (Acute) History of knee surgery History of laparoscopy With fulguration of oviducts History of arthroplasty of knee primary repair of knee ligament cruciate anterior Tension type headache Fatty liver DM2 (diabetes mellitus, type 2) Morbid obesity Metabolic syndrome Localized swelling, mass and lump, neck Exposure to confirmed case of COVID-19 Left knee pain Ruptured Bakers cyst Left knee DJD PMB (postmenopausal bleeding) Postmenopausal atrophic vaginitis Encounter for pre-operative examination Status post left knee replacement Encounter for examination following treatment at hospital Fatigue Thrush Aneurysm of left internal carotid artery pt states was told by [facility] neuro it did not require further f/u or intervention Cervical cord compression with myelopathy (Chronic) s/p surgical intervention x4, mild ROM limitation Medical History PCOS (polycystic ovarian syndrome) Unique anesthetic considerations present on preoperative anesthesia assessment PT REPORTS AFRAID OF GOING TO SLEEP (DOES NOT LIKE THE UNAWARENESS) AND AFRAID OF HAVING A SPINAL NO HX ANESTHESIA PROBLEMS Liver problem HX OF A FALL IN 2020 "I BRUISED IT", HX ELEVATED LIVER ENZYMES>no current issues Varicose veins of both lower extremities MOSTLY LEFT; ablation of varicose veins completed Diabetes NIDDM Migraines reason for verapamil History of recurrent UTIs Cervical disc disease Kidney stone REMOTE HX Surgical History History of total left knee replacement History of arthroscopy of left knee History of repair of ACL LEFT Hx of tubal ligation 1997 History of neck surgery Years: 2015, 2017, 2018, 2019 (total of 4 surgeries) HARDWARE MILD LIMITATION WITH MOVEMENT TO RIGHT GETS NECK CRAMP NEAR THROAT WITH YAWNING History of cataract extraction 2017, BOTH History of tonsillectomy History of appendectomy Family History Father Diabetes Grandfather Myocardial infarction Denies family history of Ovarian cancer Prostate cancer Breast cancer Lung cancer Colorectal cancer Hypertension Social History Smoking Status: Former smoker Tobacco Type: Cigarettes Age Started Using Tobacco: 19; packs per day: 1; Cigarettes Per Day: just an occasional if out with friends; Second Hand Exposure: No; Do You Dip or Chew Tobacco: No; Hx Alcohol Use: Yes Alcohol type: beer, wine and hard liquor Hx Substance Use: No Preferred Language: [place] Communication Ability: Effective Claim Inspector Required: No Beliefs That Will Affect Care: None marital status: Current Living Situation: Spouse Current Living Situation Comment: GRANDAUGHTERS STAY FREQUENTLY current occupational status: other 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 Physical Exam . Results & Data Results & Data Laboratory Results . Diagnostic Findings . PG Care Time/CCT Total # of Minutes Spent Total Time Spent with Patient: Total time spent is greater than 50% in coordination of care (as documented) at patient's floor/unit and/or counseling patient: Coding Level of Care Code 19531 IN/OBS CONSULT LVL 3,45M
[2024-05-15] MEDS: INSULIN ASPART PER UNIT CHARGE SC SCH (18:16)
[2024-05-15] MEDS: AMPICILLIN/SULBACTAM SOD 3,000 MG/100 ML BAG IV SCH (18:20)
[2024-05-15] MEDS: ENOXAPARIN INJ 40 MG/0.4 ML SYR SQ SCH (19:33)
[2024-05-16] MEDS: KETOROLAC TROMETHAMINE 15 MG/ML VIAL IV PRN (01:47)
[2024-05-16] MEDS: diphenhydrAMINE 50 MG/ML VIAL IV STA (02:19)
[2024-05-16 07:43] LABS: Basophils # (auto) 0.09 K/uL (0.00-0.20); Basophils % (auto) 1.2 %; Eosinophils # (auto) 0.15 K/uL (0.00-0.50); Hemoglobin 11.7 g/dl (12.0-16.0); Immature Granulocytes # (auto) 0.04 K/uL (0.01-0.20); Immature Granulocytes % (auto) 0.5 %; Lymphocytes # (auto) 2.24 K/uL (1.20-3.40); Lymphocytes % (auto) 29.3 %; Mean Corpuscular Hemoglobin 29.7 pg (25.0-34.0); Mean Corpuscular Hgb Conc 34.4 g/dL (32.0-36.0); Mean Corpuscular Volume 86.3 fL (80.0-100.0); Mean Platelet Volume 9.4 fL (9.4-12.4); Monocytes # (auto) 0.45 K/uL (0.11-0.59); Monocytes % (auto) 5.9 %; Neutrophils # (auto) 4.67 K/uL (1.40-6.50); Neutrophils % (auto) 61.1 %; Platelet Count 258 K/uL (130-400); RDW Coefficient of Variation 13.1 % (11.5-14.5); RDW Standard Deviation 40.9 fL (36.4-46.3); Red Blood Count 3.94 M/uL (4.20-5.40); White Blood Count 7.64 K/ul (4.8-10.8)
--- NOTE | 2024-05-16 07:48 | Orthopedic Progress Note ---
Date of Service May 16, 2024 Subjective Patient seen and examined, she notes continued improvement of left hand with less swelling and pain with range of motion. Exam reveals the patient not to have any purulence, there is minimal tenderness over the distal third metacarpal region, can flex and extend fingers with minimal to no symptoms. Other scratches healing with no evidence of cellulitis. Impression: Status post cat scratches and bite, improved with change in antibiotics. Plan: Recommend continued IV antibiotics and then switching to p.o. antibiotics with follow-up in office after discharge. Review of Systems All systems reviewed & are unremarkable except as noted in HPI & below. Physical Exam . Results & Data Results & Data Laboratory Results . Diagnostic Findings . PG Care Time/CCT Total # of Minutes Spent Total Time Spent with Patient: Total time spent is greater than 50% in coordination of care (as documented) at patient's floor/unit and/or counseling patient: Coding Level of Care Code 49327 SUB INP/OBS CARE 125MIN
[2024-05-16] MEDS: VERAPAMIL HCL 120 MG TABCR PO SCH (07:58)
[2024-05-16 08:00] LABS: BUN Creatinine Ratio 20.3 (10-20); C Reactive Protein 1.3 mg/dl (0-0.5); Potassium 3.8 mmol/L (3.5-5.1)
[2024-05-16] MEDS: LANTUS PER UNIT CHARGE SQ SCH (08:07)
[2024-05-16] MEDS ORDERED: NON-FORMULARY MEDICATION (Potassium Gluconate 595 mg (99 mg) Tablet) PO SCH (09:00)
[2024-05-16] MEDS: ACETAMINOPHEN 325 MG TAB PO PRN (15:50)
--- NOTE | 2024-05-16 19:27 | Hospitalist Progress Note ---
Date of Service May 16, 2024 Assessment & Plan (1) Cat bite of left hand with infection: (2) DM2 (diabetes mellitus, type 2): (3) HTN (hypertension): Plan Tsering is a pleasant 48-year-old female with PMH of T2DM, metabolic syndrome, tension type headaches, GERD, HTN, cervical cord compression, and thrush. She presented on 05/15 at the behest of her PCP for worsening redness and swelling from her recent cat bite. Patient was originally bit by her indoor house cat who got out on Saturday 05/13; bite occurred around 6 PM. Scratching and biting occurred on both of her hands and wrists. Patient then went to the ED on Wednesday morning and was started on Augmentin (per patient, she was on antibiotics within 12h of the bite). #Cat bite of left hand with infection Worsening infection of her left hand after cat bite on Wednesday evening 05/13. Originally came to the ED on 05/14 and started on Augmentin Left hand x-ray on 05/15 revealed no acute osseous abnormalities No leukocytosis; negative procalcitonin; afebrile CRP elevated at 1.11 on arrival; trend up at 1.30, continue to trend Continue Unasyn 3000 mg IV q6h -- there was concern regarding possible developing rash on face, Unasyn placed on hold overnight. After further discussion, low suspicion this was allergic reaction and Unasyn was resumed Acetaminophen and Toradol as needed for pain/fever. Elevate left upper extremity Orthopedic consult appreciated, continue IV antibiotics, switch to p.o. antibiotic on discharge, follow-up in office after discharge #Type 2 diabetes mellitus Last A1c at 7.9% on 02/11/2024 Hold metformin Lantus 5 u QAM while inpatient Loose SSI with target BSG range 110-150mg/dL, CF 35, carb ratio 12 T2DM diet BSG ACHS Adjust regimen as needed #Hypertension Continue verapamil Disposition: Anticipate discharge home 05/17/2024 VTE PPx: Lovenox 40 mg SQ q24h Updated at bedside Admission and Anticipated Discharge Date Admission Date: May 15, 2024 Supervising Physician Co-Signing Physician Notes Attending Attestation - Chart reviewed, care plan d/w MERLY Bradford. I agree w/ the hogue components of her documentation. Appreciate orthopedic input. Cont IV abx. Daryl Joseph MD Subjective Patient seen and evaluated bedside with her present. She reports that her hand appears and feels improved today. She notes some tightness when squeezing her hand but states this has improved. She reports that her IV antibiotics were placed on hold overnight due to concern regarding a possible developing rash on her face. She denies any hives, itching, swelling of her lips/tongue/throat/eyes, wheezing, N/V/D, tachycardia. She states that her face appears the same at this time as it was overnight. I do not appreciate any rash on her face during my evaluation. Discussed that we will resume Unasyn IV as low suspicion for allergic reaction. Anticipate discharge home tomorrow morning, 05/17/2024. Physical Exam Physical Exam: General: No acute distress, nondiaphoretic, well-developed, well-nourished. Cardiac: Regular rate and rhythm without murmurs gallops or rubs. Pulm: Clear to auscultation bilaterally without wheezes, rales or rhonchi. No respiratory distress. 97% on room air. Abdominal: Soft, nontender, nondistended. Bowel sounds present. Neuro: A&O x3. No focal neurological deficits. Left hand: Many superficial scratches noted on dorsal aspect of hand and wrist. Minimal tenderness over distal third metacarpal. No difficulty with finger flexion/extension. Erythema of distal third metacarpal nearly resolved, no proximal streaking of erythema noted. Sensation intact to light touch. Results & Data Results & Data Vital Signs (Past 12 Hours) Vital Signs Temp Pulse Resp BP Pulse Ox O2 Del Method 05/16/24 15:19 98.4 F 69 16 126/79 97 Room Air 05/16/24 07:47 98.2 F 73 16 124/88 97 Room Air 05/16/24 07:45 Room Air Laboratory Results Reviewed CBC Reviewed BMP Reviewed CRP PG Care Time/CCT Total # of Minutes Spent Total Time Spent with Patient: Total time spent is greater than 50% in coordination of care (as documented) at patient's floor/unit and/or counseling patient: Coding Level of Care Code 19277 SUB INP/OBS CARE 3/50MIN Diagnoses Cat bite of left hand with infection S61.452A; L08.9; W55.01XA Encounter type: initial encounter DM2 (diabetes mellitus, type 2) E11.9 HTN (hypertension) I10 Hypertension type: unspecified (1) Cat bite of left hand with infection Encounter type: initial encounter Qualified Code(s): S61.452A - Open bite of left hand, initial encounter; L08.9 - Local infection of the skin and subcut aneous tissue, unspecified; W55.01XA - Bitten by cat, initial encounter (3) HTN (hypertension) Hypertension type: unspecified Qualified Code(s): I10 - Essential (primary) hypertension
[2024-05-17 06:46] LABS: Basophils # (auto) 0.08 K/uL (0.00-0.20); Basophils % (auto) 1.1 %; Eosinophils # (auto) 0.15 K/uL (0.00-0.50); Eosinophils % (auto) 2.1 %; Hematocrit (blood only) 33.9 % (37.0-47.0); Hemoglobin 11.8 g/dl (12.0-16.0); Immature Granulocytes # (auto) 0.02 K/uL (0.01-0.20); Immature Granulocytes % (auto) 0.3 %; Lymphocytes # (auto) 2.52 K/uL (1.20-3.40); Mean Corpuscular Hemoglobin 30.1 pg (25.0-34.0); Mean Corpuscular Hgb Conc 34.8 g/dL (32.0-36.0); Mean Corpuscular Volume 86.5 fL (80.0-100.0); Mean Platelet Volume 9.2 fL (9.4-12.4); Monocytes % (auto) 6.9 %; Neutrophils # (auto) 3.93 K/uL (1.40-6.50); Neutrophils % (auto) 54.6 %; Platelet Count 266 K/uL (130-400); RDW Coefficient of Variation 13.1 % (11.5-14.5); RDW Standard Deviation 40.9 fL (36.4-46.3); Red Blood Count 3.92 M/uL (4.20-5.40)
[2024-05-17 07:08] LABS: BUN Creatinine Ratio 18.2 (10-20); C Reactive Protein 1.29 mg/dl (0-0.5); Calcium 9.1 mg/dl (8.6-10.3); Creatinine Clr Calc Pharmacy 118.3 ml/min; Potassium 3.7 mmol/L (3.5-5.1)
[2024-05-17 07:56] VITALS: PULSE 68; RESP 16; TEMP 98.1; O2SAT 97
[2024-05-17 08:47] VITALS: BP 110/64
--- NOTE | 2024-05-17 16:33 | Discharge Summary ---
Discharge Summary Date of Service May 17, 2024 Principal Dx & Hospital Course #1 = Principal Diagnosis (1) Cat bite of left hand with infection: (2) DM2 (diabetes mellitus, type 2): (3) HTN (hypertension): Ana Cagle is a pleasant 48-year-old female with PMH of T2DM, metabolic syndrome, tension type headaches, GERD, HTN, cervical cord compression, and thrush. She presented on 05/15 at the behest of her PCP for worsening redness and swelling from her recent cat bite. Patient was originally bit by her indoor house cat who got out on Saturday 05/13; bite occurred around 6 PM. Scratching and biting occurred on both of her hands and wrists. Patient then went to the ED on Wednesday and was started on Augmentin (per patient, she was on antibiotics within 12h of the bite). #Cat bite of left hand with infection Worsening infection of her left hand after cat bite on Wednesday evening 05/13. Originally came to the ED on 05/14 and started on Augmentin Left hand x-ray on 05/15 revealed no acute osseous abnormalities No leukocytosis; negative procalcitonin; afebrile CRP elevated and peaked at 1.30, downtrended Orthopedic consulted, recommended treatment with antibiotics and can follow-up i n office after discharge Treated with Unasyn 3000 mg IV Q6H while inpatient, discharged on Augmentin BID x 5 additional days #Type 2 diabetes mellitus Last A1c at 7.9% on 02/11/2024 Continue metformin on discharge Adjust regimen as needed outpatient #Hypertension Continue verapamil Disposition: Discharged home 05/17/2024 Admission HPI Per Admitting Provider Tsering is a pleasant 48-year-old female with PMH of T2DM, metabolic syndrome, tension type headaches, GERD, HTN, cervical cord compression, and thrush. She presented on 05/15 at the behest of her PCP for worsening redness and swelling from her recent cat bite. Patient was originally bit by her indoor house cat who got out on Saturday 05/13; bite occurred around 6 PM. Scratching and biting occurred on both of her hands and wrists. Patient then went to the ED on Wednesday and was started on Augmentin (per patient, she was on antibiotics within 12h of the bite). She also reports that she got her tetanus updated at that time. Patient is right-hand dominant. She denies any purulent drainage from the scratches/bite booker. No fevers. No loss of function in her hands; she reports she still appeared to grasp objects and squeeze. Patient took her regular morning medicine today; no recent change in medications. She has not been taking anything for the pain. She rates the pain in her left hand 3/10 at present; squeezing exacerbates the pain. She reports she does have an allergy to penicillins. In the past she developed hives when she was on her second course of amoxicillin, and was told that she should avoid "taking too much" amoxicillin. No prior history of anaphylaxis or throat closure. Patient reports it is okay for her to take NSAIDs. Patient endorses occasional smoking/tobacco cigarettes, as well as alcohol use. No prior history of alcohol withdrawal. Patient is mildly hypertensive at 157/84 time admission; vitals otherwise stable. ED course: NSS 1000 mL IV Toradol 15 mg IV Unasyn 3000 mg IV ROS: Patient endorses erythema/swelling on the dorsal aspect of the left hand, mild left hand pain/tightness, and dry cough. Patient denies fever, chills, night sweats, dizziness, lightheadedness, headache, changes in vision, chest pain, chest palpitations, pleuritic CP, SOB, abdominal pain, N/V/D, changes in urinary or bowel habits, or numbness or tingling in the upper extremities. Discharge Exam General: No acute distress, nondiaphoretic, well-developed, well-nourished. Cardiac: Regular rate and rhythm without murmurs gallops or rubs. Pulm: Clear to auscultation bilaterally without wheezes, rales or rhonchi. No respiratory distress. 97% on room air. Abdominal: Soft, nontender, nondistended. Bowel sounds present. Neuro: A&O x3. No focal neurological deficits. Left hand: Many superficial scratches noted on dorsal aspect of hand and wrist. Minimal tenderness over distal third metacarpal. No difficulty with finger flexion/extension. Erythema of distal third metacarpal now resolved, no proximal streaking of erythema noted. Sensation intact to light touch. Discharge Plan Discharge Items Patient Disposition: Home - Self-Care Reason For Visit: LEFT HAND CAT BITE / WORSENING INFECTION Discharge Diagnosis: Cat bite of left hand with associated infection Activity: Resume your previous activity Non-emergency contact: Primary Care Provider Call non-emergency contact if: you have any medication questions, your symptoms worsen and you have a fever Follow-up/Referrals: Romi Albert MD [Primary Care Provider] - 05/24/24 12:30 pm (Follow-up in 1-2 weeks) Diet: Carb Consistent or DM2 Addtl Attending Provider Instructions: Tsering, You were admitted to the hospital due to worsening infection of your left hand from a cat bite. You had an x-ray of your left hand which was negative for acute abnormalities. You were treated with IV antibiotics while in the hospital, and will be discharged on oral antibiotics to continue taking at home. You were also seen by the orthopedic surgeon who agreed with the plan treating with antibiotics, and you can follow-up in the orthopedic office after discharge. Since you still have your oral antibiotic prescription from your ER visit, no new antibiotic prescription was sent in to your pharmacy. Upon discharge from the hospital: * Continue Augmentin (oral antibiotic) twice daily x 5 additional days. This is to complete your antibiotic course for the left hand infection. It is important to complete this course of antibiotics even if you feel back to normal. * You can use dybj-nyl-nrweeen (OTC) medications for pain control, such as Tylenol or ibuprofen. * Follow-up with your PCP in 1-2 weeks. Please return to the hospital if you experience any of the following: Worsening redness, swelling, pain of your left hand, fever of 100.5 F or higher, any drainage/pus from the infection site; chest pain, difficulty breathing, persistent nausea with vomiting, dizziness, passing out, confusion, or any other symptoms concerning for you. It was a pleasure taking care of you while you were in the hospital, Angelita Bradford PA-C Pending Studies at Discharge: No Stand-Alone Forms: My Polar, Smoking Cessation Medications and DC Order Prescriptions: Continued metformin 1,000 mg tablet 1,000 mg PO QAM Qty: 90 3RF Ozempic 1 mg/dose (4 mg/3 mL) pen injector 1 mg SUBCUT WK Qty: 3 3RF Hold Instructions: Resume on 11/18/23. Hold until seen by your PCP verapamil 120 mg capsule,ext rel. pellets 24 hr 120 mg PO DAILY Qty: 30 5RF (DME) pen needle, diabetic [1st Tier Unifine Pentips Plus] 31 gauge x 5/16" needle See Rx Instructions .Route Qty: 100 0RF Rx Instructions: Use with Ozempic pen omega-3 fatty acids 1,000 mg capsule 1,000 mg PO DAILY turmeric 400 mg capsule 400 mg PO DAILY [id number]-ilo C-Mn Capsule 1 cap PO QAM potassium gluconate 595 mg (99 mg) Tablet 595 mg PO QAM calcium carbonate [Calcium 600] 600 mg calcium (1,500 mg) Tablet 600 mg PO DAILY cholecalciferol (vitamin D3) [Vitamin D3] 50 mcg (2,000 unit) Tablet 50 mcg PO DAILY ferrous sulfate [iron] 325 mg (65 mg iron) Tablet 325 mg PO DAILY No Action (DME) OneTouch Verio test strips Strip See Rx Instructions .Route Qty: 100 5RF Rx Instructions: TEST 3-4 TIMES DAILY OR NEEDED (DME) blood-glucose meter [OneTouch Verio Flex meter] Misc See Rx Instructions .Route Qty: 1 0RF Rx Instructions: TEST 3-4 TIMES DAILT OR NEEDED (DME) lancets [OneTouch Delica Plus Lancet] 33 gauge misc See Rx Instructions .Route Qty: 100 4RF Rx Instructions: TEST 3-4 TIMES DAILT OR NEEDED amoxicillin-pot clavulanate 875-125 mg tablet 1 tab PO BID Rx Instructions: For 5 days Discharge Orders: Discharge Order (Routine); Ordered 05/17/24 Ordered By: Angelita Burns/Other Patient Handouts: Animal Bites and Scratches Admission Data Admit Date/Time: 05/15/24 12:40 Attending Provider: Daryl Joseph Admit Provider: Daryl Garsia Primary Care Provider: Romi Albert Other Providers: Kahlil Soliman Other Interventions: Discharge Summary Assessment (RN) Last Done: 05/17/24 09:04 Discharge Summary Assessment (RN) Last Done: 05/17/24 08:46 Hospital Stay Data Consultations 05/15/24 11:48 ED Decision to Admit Stat 05/15/24 15:28 Consult Orthopedic Surgery Routine Pending Results Patient Have Any Pending Studies at Discharge: No Discharge Instructions Given to Patient (Per Discharging Provider) Tsering, Williams were admitted to the hospital due to worsening infection of your left hand from a cat bite. You had an x-ray of your left hand which was negative for acute abnormalities. You were treated with IV antibiotics while in the hospital, and will be discharged on oral antibiotics to continue taking at home. You were also seen by the orthopedic surgeon who agreed with the plan treating with antibiotics, and you can follow-up in the orthopedic office after discharge. Since you still have your oral antibiotic prescription from your ER visit, no new antibiotic prescription was sent in to your pharmacy. Upon discharge from the hospital: * Continue Augmentin (oral antibiotic) twice daily x 5 additional days. This is to complete your antibiotic course for the left hand infection. It is important to complete this course of antibiotics even if you feel back to normal. * You can use ijvi-jdz-flomckz (OTC) medications for pain control, such as Tylenol or ibuprofen. * Follow-up with your PCP in 1-2 weeks. Please return to the hospital if you experience any of the following: Worsening redness, swelling, pain of your left hand, fever of 100.5 F or higher, any drainage/pus from the infection site; chest pain, difficulty breathing, persistent nausea with vomiting, dizziness, passing out, confusion, or any other symptoms concerning for you. It was a pleasure taking care of you while you were in the hospital, Angelita Bradford PA-C Supervising Physician Co-Signing Physician Notes Attending Attestation and Discharge Note: Chart reviewed, discharge care plan d/w MERLY Bradford. I agree w/ the hogue components of her discharge documentation. Of note - I did not perform a bedside visit or perform a physical exam on day of discharge. 48yo female with T2DM & HTN who presented with left hand infection 2nd to a cat bite. Was treated with IV unasyn while hospitalized. Seen by orthopedics - no surgical intervention needed. There was no evidence of septic tenosynovitis, etc. She will complete a course of PO augmentin upon transition home. All chronic medical issues remained stable while hospitalized. Daryl Joseph MD Total Time Total Time Spent Total Time Spent (In Minutes): Greater than 30 minutes spent completing this discharge process including direct patient care, medication reconciliation, documentation, review of labs and images, and coordination of care. Coding Level of Care Code 84535 INP/OBS DISCH >30 MIN Diagnoses Cat bite of left hand with infection S61.452A; L08.9; W55.01XA Encounter type: initial encounter DM2 (diabetes mellitus, type 2) E11.9 HTN (hypertension) I10 Hypertension type: unspecified
== END 2024-05-17 09:04 | disposition home or self-care (01) | DRG 603 ==
LOC: ED 10:13 → EDINP 12:40 → SUATTDRO 12:40 → 3W 15:28
DX: Z23 Encounter for immunization; Y93.K9 Activity, other involving animal care; Z79.84 Long term (current) use of oral hypoglycemic drugs; S61.451A Open bite of right hand, initial encounter; Z88.8 Allergy status to other drugs, medicaments and biological substances; Z79.85 Long-term (current) use of injectable non-insulin antidiabetic drugs; S61.551A Open bite of right wrist, initial encounter; Z82.49 Family history of ischemic heart disease and other diseases of the circulatory system; Z88.0 Allergy status to penicillin; I10 Essential (primary) hypertension; S61.552A Open bite of left wrist, initial encounter; Z87.891 Personal history of nicotine dependence; F17.210 Nicotine dependence, cigarettes, uncomplicated; L08.9 Local infection of the skin and subcutaneous tissue, unspecified; S61.452A Open bite of left hand, initial encounter; E11.9 Type 2 diabetes mellitus without complications; W55.03XA Scratched by cat, initial encounter; K21.9 Gastro-esophageal reflux disease without esophagitis; W55.01XA Bitten by cat, initial encounter; Z79.899 Other long term (current) drug therapy; Y99.8 Other external cause status; Z91.040 Latex allergy status